=== PATIENT | female | born 1935 | race Caucasian/White ===

== ENCOUNTER → 2017-08-22 08:52 | Outpatient (CLI) | payer MEDICARE, OTHER, SELFPAY ==
--- NOTE | 2017-08-22 | DI.CT.S_ITS ---
PROCEDURE: CT UE LT WO CON INDICATIONS: LEFT WRIST PAIN TECHNIQUE: Noncontrast 1 mm axial sections acquired through the carpal bones, with coronal and sagittal reformats. COMPARISON: [facility], CR, XR WRIST LT 2V, 08/12/2017, 16:16. [facility], CR, XR WRIST LT MIN 3V, 08/12/2017, 16:59. FINDINGS: Image quality: Excellent. Bones: There is a comminuted fracture of the distal radius redemonstrated predominantly involving the dorsal aspect. There is extension to the radiocarpal and distal radioulnar joints. There is associated mild dorsal displacement and angulation of the carpus. Slight dorsal subluxation of the distal radioulnar joint is also noted. No definite fracture of the ulna or other visualized osseous structures. Soft tissues: There is periarticular soft tissue edema. The visualized flexor and extensor tendons appear grossly intact. IMPRESSION: 1. Comminuted intra-articular fracture the distal radius involving the radiocarpal joint with associated mild dorsal displacement and angulation of the carpus. 2. Extension to the distal radioulnar joint also noted with slight dorsal subluxation. Dictated by: Brendon Mendieta M.D. on 08/22/2017 at 10:35 Approved by: Brendon Mendieta M.D. on 08/22/2017 at 10:50
== END ==
PROVIDERS: PCP Family Medicine; Visit Provider Orthopaedic Surgery Foot and Ankle Surgery
DX: S52.572A Other intraarticular fracture of lower end of left radius, initial encounter for closed fracture (principal)
CPT/HCPCS: 73200

== ENCOUNTER → 2019-03-10 11:54 | Outpatient (CLI) | payer MEDICARE, OTHER, SELFPAY ==
--- NOTE | 2019-03-10 | DI.RAD.S_ITS ---
PROCEDURE: XR KNEE RT 3V INDICATIONS: RT KNEE PAIN TECHNIQUE: 3 views of the knee were acquired. COMPARISON: None. FINDINGS: Bones: No fractures or dislocations. No suspicious bony lesions. Mild tricompartmental degenerative changes of the right knee as evidenced by osteophyte formation and periarticular sclerosis. Soft tissues: There is a moderate size right knee joint effusion. There is superior patellar enthesopathy. There is soft tissue swelling of the anterior right knee superior to the patella. IMPRESSION: 1. Moderate-sized right knee joint effusion with soft tissue swelling of the anterior right knee superior to the patella. 2. Mild tricompartmental degenerative changes of the right knee. 3. Mild superior right patellar enthesopathy. Dictated by: Dominic Saxena M.D. on 03/10/2019 at 15:57 Approved by: Dominic Saxena M.D. on 03/10/2019 at 16:00
== END ==
PROVIDERS: PCP Family Medicine; Visit Provider Family Medicine
DX: M25.561 Pain in right knee (principal); M25.461 Effusion, right knee; M76.51 Patellar tendinitis, right knee
CPT/HCPCS: 73562

== ENCOUNTER → 2019-04-12 09:09 | Outpatient (CLI) | payer MEDICARE, OTHER, SELFPAY ==
--- NOTE | 2019-04-12 09:12 | DI.MRI.S_ITS ---
PROCEDURE: MR THORACIC SPINE WO CON INDICATIONS: Thoracic radiculopathy TECHNIQUE: Noncontrast sagittal T1 spine echo and T2 fast spin echo, sagittal STIR, axial T1 and T2 fast spin echo through the thoracic spine. COMPARISON: None. FINDINGS: Image quality: Excellent. Alignment and Curvature: There is normal bony alignment. Bone Marrow: Marrow is of normal overall signal. No acute vertebral body compression fractures. Mild anterior vertebral body height loss at multiple contiguous rest of vertebral bodies results in increase in the thoracic kyphosis. There are are prominent hemangiomas involving T5 and T6. Spinal Cord: Visualized spinal cord is normal in size and signal. Paraspinous Soft Tissues: No paravertebral masses. Miscellaneous: There is a shallow disc extrusion emanating from the T7-T8 disc space, extending posterior to the T8 vertebral body, measuring approximately 1.4 x 0.5 x 0.3 cm which indents on the ventral aspect of the thoracic cord, without canal stenosis. No other disc protrusions are noted. No canal stenosis or foraminal stenosis. IMPRESSION: 1. A shallow disc extrusion at T7-T8 indents on the ventral aspect of the cord without resulting in canal stenosis. 2. No other disc protrusions. No canal stenosis or foraminal stenosis. Dictated by: Fredrick Albrecht M.D. on 04/12/2019 at 12:57 Approved by: Fredrick Albrecht M.D. on 04/12/2019 at 13:01
== END ==
PROVIDERS: Family Provider Family Medicine; PCP Family Medicine; Visit Provider Physical Medicine & Rehabilitation
DX: M47.814 Spondylosis without myelopathy or radiculopathy, thoracic region (principal); M51.24 Other intervertebral disc displacement, thoracic region
CPT/HCPCS: 72146

== ENCOUNTER 2019-04-27 08:32 | Outpatient (CLI) | payer MEDICARE, OTHER, SELFPAY ==
[2019-04-27] VITALS (10 sets, daily range): BP systolic 108–189; BP diastolic 56–77; PULSE 71–80; RESP 16; TEMP 36.2; O2SAT 98–100
--- NOTE | 2019-04-27 08:33 | DI.RAD.S_ITS ---
PROCEDURE: PAIN C/T INTERLAMINAR INJECT INDICATIONS: SPONDYLOSIS FINDINGS: Fluoroscopic spot filming was performed to verify placement of spinal needles at the T7-T8 level(s), as labeled on the films. Appropriate location(s) of the needle tip(s) was confirmed by injection of iodinated contrast. Dictated by: Ramesh Correa M.D. on 04/27/2019 at 11:34 Approved by: Ramesh Correa M.D. on 04/27/2019 at 11:34
[2019-04-27] MEDS: MIDAZOLAM 5 MG/5 ML VIAL IV (10:28)
[2019-04-27] MEDS: IOPAMIDOL 15 ML VIAL 3 ML INJ (10:44)
[2019-04-27] MEDS: BUPIVACAINE 0.25% (PF) VIAL 2 ML INJ (10:44)
[2019-04-27] MEDS: DEXAMETHASONE 10 MG/ML VIAL 20 MG INJ (10:45)
--- NOTE | 2019-04-27 10:48 | PC.NURSE ---
ASSISTING PT OFF TABLE AND TRANSPORTING TO POST PROC AREA IN STABLE CONDITION. PASSING RN CARE OF PT OFF TO CECI Beckett RN.
--- NOTE | 2019-04-27 10:58 | P.PCN_ITS ---
Procedures Date/Time Date of procedure: 04/27/19 Time of procedure: 10:58 General Procedure description: Preop diagnosis: Thoracic stenosis with HNP Postprocedure diagnosis: Thoracic stenosis with HNP Physician: Dima Drummond D.O. Indications: Deana is referred by Dr. Nino for treatment of thoracic DDD/DJD with radiculopathy Description of procedure: Fluoroscopic guided, contrast controlled T7/8 translaminar epidural steroid inje ction with conscious sedation. Following review of allergy review potential side effects and complications, including, but not necessarily limited to, infection, allergic reaction, local tissue breakdown, temporary as well as permanent nerve injury, stroke, paralysis and possible , the patient indicated that they understood and agreed to proceed. An informed consent document was signed by the patient, witnessed by the nurse, and placed in the patient's chart. Additionally other treatment options including modalities, medications and physical therapy were reviewed with the patient. After review of previous anaesthesic history and IV conscious sedation the patient was deemed safe to proceed with todays procedure with IV conscious sedation as ASA class II designation. Safety time-out was performed to confirm patient ID, procedure to be performed and site of procedure. IV sedation was accomplished with a combination of 3mg of Versed administered by the RN after DO order, titrated to patient comfort during the course of the procedure while the patient remained responsive to all verbal commands In the prone position, following sterile prep and drape of the thoracic region the T7/8 translaminar space was identified fluoroscopically. The skin was anesthetized via 25 gauge 1.5 needle with 1% lidocaine solution. At this point a 25 gauge epidural needle was atraumatically introduced and advanced under fluoroscopic guidance into the region of the T7/8 translaminar space depth was confirmed on lateral view. Radiographic data, including multiple fluoroscopic views of the thoracic spine, reveals spinal needle at the T7/8 translaminar space. Lateral views then showed the placement of the needle in the epidural space. Subsequent view show contrast material flowing superiorly and inferiorly in the epidural space. No vascular or intrathecal uptake is observed. At this point using loss of resistance technique with saline and the epidural space was entered. This was confirmed followed negative aspiration and injection of approximately 1.5 cc of Isovue 200 showed excellent epidural flow without vascular or intrathecal uptake. At this point, 1 cc of 1% lidocaine so lution was admitted as a test dose and the patient was observed for an appropriate period of time without signs or symptoms of complications, including abdominal pain, shortness of breath, bilateral upper and lower extremity weakness, nausea and vomiting, prior to steroid injection. Subsequently, 2cc or 20mg of dexamethasone was then injected without incident. The patient tolerated the procedure well without signs of complications and subsequently was transferred to the recovery room for further monitoring. The patient was then transferred to the recovery area with their observed for an appropriate time after the injection. Patient reported a VAS score of 7 prior to the procedure and postprocedure VAS of 2. Total fluoroscopy time: 16 sec Total conscious sedation time: 24 min Dima Drummond D.O. Complications: none
== END 2019-04-27 11:25 | disposition home or self-care (01) ==
LOC: RAD 08:33
PROVIDERS: Family Provider Family Medicine; PCP Family Medicine; Visit Provider Physical Medicine & Rehabilitation
DX: M48.04 Spinal stenosis, thoracic region (principal); M51.14 Intervertebral disc disorders with radiculopathy, thoracic region; M47.24 Other spondylosis with radiculopathy, thoracic region
CPT/HCPCS: 62321; J1100; J2250

== ENCOUNTER → 2020-04-20 10:41 | Outpatient (CLI) | payer MEDICARE, OTHER, SELFPAY ==
--- NOTE | 2020-04-20 10:44 | DI.RAD.S_ITS ---
PROCEDURE: XR THORACIC SPINE 3V INDICATIONS: upper back pain TECHNIQUE: 3 views of the thoracic spine were acquired. COMPARISON: None. FINDINGS: Bones: No fractures or dislocations. No suspicious bony lesions. 12 pairs of ribs are noted, and appear intact where visualized. Multilevel disc space narrowing as well as bridging anterior osteophytes are present within the thoracic spine Soft tissues: No paravertebral stripe thickening. Heart is enlarged. IMPRESSION: Multilevel degenerative changes within the thoracic spine. Dictated by: Carmina Mcmillan M.D. on 04/20/2020 at 13:02 Approved by: Carmina Mcmillan M.D. on 04/20/2020 at 13:24
== END ==
PROVIDERS: PCP Family Medicine; Referring Provider Physical Medicine & Rehabilitation; Visit Provider Physical Medicine & Rehabilitation
DX: M54.6 Pain in thoracic spine (principal); M47.814 Spondylosis without myelopathy or radiculopathy, thoracic region
CPT/HCPCS: 72072

== ENCOUNTER → 2020-07-12 07:40 | Outpatient (CLI) | payer MEDICARE, OTHER, SELFPAY ==
--- NOTE | 2020-07-12 | DI.ECHO.S_ITS ---
[facility]---------+ [facility] +---------+ : : [address] : : : : [id number] : : : : Phone: [phone] Echocardiogram Report + + :Name: LOBO HU Study Date: 07/12/2020 Height: 66 in : :[facility] ReadingLocation: Weight: 165 lb : : Gender: Female BSA: 1.8 m2 : :: 1935 Age: 84 yrs BP: 156/83 mmHg: :Reason For Study: MURMUR : :Ordering Physician: IAN, : :DAWSON Performed By: Ronda Garcias : :Referring: DAWSON SOSA : + + Interpretation Summary 1) Normal left ventricular thickness, size, wall motion, and systolic function (EF 60-65%). 2) Normal right ventricular size and function. 3) Aortic sclerosis present but no stenosis or regurgitation are present. 4) Hypertension present during the study (BP 156/83mmHg). 5) No prior Echo available for comparison. Procedure: A two-dimensional transthoracic echocardiogram with color flow and Doppler was performed. The study quality was technically adequate. There is no prior echocardiogram noted for this patient. The patient was in sinus bradycardia with heart rates between 57-64 bpm during the exam. Left Ventricle: The left ventricle is normal in size. Left ventricular wall thickness is at the upper limits of normal. The ejection fraction is estimated to be 60-65%. Left ventricular systolic function appears normal without focal wall motion abnormalities. Diastolic parameters suggest a pseudonormalization pattern, consistent with probable elevated filling pressures. Right Ventricle: The right ventricle is normal in size and function. Atria: The left atrium is severely dilated. Right atrial size is normal. There is no Doppler evidence for an interatrial shunt. Mitral Valve: The mitral valve is normal in structure and function. There is mild mitral regurgitation. Aortic Valve: The aortic valve is trileaflet. The aortic valve is slightly calcified. The aortic valve opens well. There is no aortic valve stenosis. No aortic regurgitation is present. Tricuspid Valve: The tricuspid valve is normal in structure and function. There is trace tricuspid regurgitation. The right ventricular systolic pressure is estimated to be at least 29 mmHg based on an estimated right atrial pressure of 3 mm Hg. Pulmonic Valve: The pulmonic valve leaflets are thin and pliable; valve motion is normal. There is trace pulmonic regurgitation. Great Vessels: The aortic root is normal size. The ascending aorta is at the upper limits of normal in size. The IVC is of normal diameter and collapses greater than 50% with a sniff. This suggests a low right atrial pressure of 3 mm Hg. Pericardium/ Pleura There is no pericardial effusion. There is no pleural effusion. MMode/2D Measurements & Calculations LVIDd: 4.4 cm LVOT diam: 2.0 cm LVIDs: 2.7 cm Ao root diam: 2.9 cm FS: 38.3 % asc Aorta Diam: 3.7 cm EPSS: 0.14 cm Ao Arch Diam (Prox Trans): 2.3 cm IVSd: 0.88 cm LVPWd: 1.1 cm LV bunch. diameter/BSA (cm/m^2): 2.4 LV sys. diameter/BSA (cm/m^2): 1.5 LA A2 area: 24.6 cm2 RA long axis: 5.0 cm LA A4 area: 25.3 cm2 RA area: 18.8 cm2 LA length (vol): 5.6 cm RA vol: 59.6 ml LA vol: 93.6 ml RA : 32.4 ml/m2 LA vol index: 50.8 ml/m2 IVC diam: 1.3 cm RVD1 (basal): 3.1 cm TAPSE: 2.0 cm Doppler Measurements & Calculations Ao V2 max: 166.6 cm/sec LVOT Max Christophe: 108.2 cm/sec Ao V2 mean: 108.7 cm/sec LV V1 max P.7 mmHg Ao max P.1 mmHg LV V1 VTI: 24.5 cm Ao mean P.4 mmHg SADIE(I,D): 2.0 cm2 Ao V2 VTI: 36.3 cm SADIE(V,D): 1.9 cm2 sev ratio: 0.67 SADIE indexed to BSA (cm^2/m^2): 1.1 MV E max christophe: 100.5 cm/sec TR max christophe: 265.3 cm/sec Med Peak E' Christophe: 6.7 cm/sec TR max P.5 mmHg E/E' med: 15.0 PA V2 max: 97.7 cm/sec Lat Peak E' Christophe: 7.2 cm/sec PA V2 mean: 75.6 cm/sec E/E' lat: 14.0 PA mean P.5 mmHg E/e' average: 14.5 PA pr(Accel): 45.6 mmHg MV dec time: 0.16 sec SV(LVOT): 73.3 ml Reading Physician:11:21 AM
== END ==
PROVIDERS: PCP Family Medicine; Referring Provider Family Medicine; Visit Provider Family Medicine
DX: R01.1 Cardiac murmur, unspecified (principal)
CPT/HCPCS: 93306

== ENCOUNTER → 2020-07-27 09:27 | Outpatient (CLI) | payer MEDICARE, OTHER, SELFPAY | PROVIDERS: PCP Family Medicine; Referring Provider Family Medicine; Visit Provider Family Medicine | DX: M85.852 Other specified disorders of bone density and structure, left thigh (principal); Z78.0 Asymptomatic menopausal state; Z87.891 Personal history of nicotine dependence | CPT/HCPCS: 77080 ==

== ENCOUNTER 2020-11-06 08:48 | Observation (INO) | payer MEDICARE, OTHER, SELFPAY ==
[2020-11-06] VITALS (16 sets, daily range): BP systolic 141–220; BP diastolic 69–93; PULSE 55–72; RESP 15–35; TEMP 36.2–36.8; O2SAT 96–100; BMI 25.8
--- NOTE | 2020-11-06 09:14 | DI.RAD.S_ITS ---
PROCEDURE: XR CHEST 1V INDICATIONS: Chest pain TECHNIQUE: One view of the chest was acquired. COMPARISON: None. FINDINGS: Surgical changes and devices: None. Lungs and pleura: Lungs are clear. No pleural effusions or pneumothorax. Mediastinum: Mediastinal contours appear normal. Heart size is normal. Bones and chest wall: No suspicious bony lesions. Overlying soft tissues appear unremarkable. IMPRESSION: No acute cardiopulmonary process demonstrated radiographically. Dictated by: Kevin Tang M.D. on 11/06/2020 at 9:35 Approved by: Kevin Tang M.D. on 11/06/2020 at 9:36
[2020-11-06 09:29] LABS: Magnesium 2.3 mg/dL (1.6-2.3)
[2020-11-06 09:32] LABS: Alanine Aminotransferase 18 IU/L (<35); Albumin 4.9 g/dL (3.5-5.0); Albumin Globulin Ratio 1.4 (1.0-2.8); Alkaline Phosphatase 56 U/L (38-126); Aspartate Aminotransferase 29 IU/L (14-36); BUN Creatinine Ratio 24.6 (6-22); Bilirubin Total 0.9 mg/dL (0.2-1.3); Blood Urea Nitrogen 17 mg/dL (7-17); Calcium 10.4 mg/dL (8.4-10.2); Carbon Dioxide 26 mmol/L (22-32); Chloride 109 mmol/L (98-107); Creatine Kinase 89 U/L (30-135); Estimated Glomerular Filt Rate > 60.0 mL/min (>60); Globulin 3.4 g/dL (1.7-4.1); Glucose 118 mg/dL (80-110); HEMOLYSIS < 15 (0-50); Lipase 76 U/L (23-300); Sodium 142 mmol/L (137-145); Total Protein 8.3 g/dL (6.3-8.2)
[2020-11-06 09:34] LABS: Add Manual Diff / Slide Review NO; Basophils Absolute Auto 100 /uL (0-100); Basophils Percent Auto 1.1 % (0-2); Eosinophils Absolute Auto 100 /uL (0-450); Eosinophils Percent Auto 1.3 % (2-4); Hematocrit 45.6 % (36-46); Hemoglobin 15.6 g/dL (12.0-16.0); Lymphocytes Absolute Auto 2500 /uL (1100-4500); Lymphocytes Percent Auto 28.3 % (25-40); Mean Corpuscular HGB Conc 34.3 % (30-36); Mean Corpuscular Hemoglobin 31.6 PG (26-34); Mean Corpuscular Volume 92.2 fL (80-100); Monocytes Absolute Auto 700 /uL (0-900); Monocytes Percent Auto 8.1 % (3-14); Neutrophils Absolute Auto 5400 /uL (1500-7000); Neutrophils Percent Auto 61.2 % (50-75); Platelet Count 364 X10^3/uL (150-400); Red Blood Cell Count 4.95 X10^6/uL (4.0-5.2); Red Cell Distribution Width 13.3 % (11.6-14.8); White Blood Cell Count 8.8 X10^3/uL (4.5-11.0)
[2020-11-06 09:38] LABS: NT-proBNP (BNP-Adult 18+) 346 pg/mL (<450)
[2020-11-06 09:42] LABS: Troponin I < 0.012 ng/mL (0.01-0.034)
--- NOTE | 2020-11-06 09:42 | DI.CT.S_ITS ---
PROCEDURE: CT ANGIO HEAD AND NECK INDICATIONS: dizziness, left leaning, prior episodes in past. TECHNIQUE: Noncontrast images were performed earlier in the day and not repeated. After the administration of intravenous contrast, 1 mm thick sections acquired from the aortic arch through the [place] of [place]. Post-contrast 4.5 mm thick sections then re-acquired from the foramen magnum to the vertex. 3-dimensional jswntyn-dzampwgto-vniojdjdcq (MIP) and/or volume rendering reformats were acquired of the central intracranial vasculature and neck separately. COMPARISON: [facility], CT, CT HEAD/BRAIN WO CON, 11/06/2020, 9:42. FINDINGS: Image quality: Excellent. BRAIN: CSF spaces: Ventricles are normal in size and shape. Basal cisterns are patent. No extra-axial fluid collections. Brain: No midline shift. No intracranial bleeds or masses. Cedillo-white matter interface appears intact. Skull and face: Calvarium and facial bones appear intact, without suspicious lesions. Orbits appear normal. Sinuses: Sinuses and mastoids are clear. HEAD CT ANGIOGRAPHY: Anterior circulation: Intracranial internal carotid arteries are normal in size and flow. The flow within the paired anterior cerebral arteries is normal and symmetric. The flow within the middle cerebral arteries is normal and symmetric. The anterior communicating artery is not well seen. No aneurysms are seen. Posterior circulation: Note is made of bilateral type origins of the posterior cerebral arteries, with an associated diminutive basilar artery. The flow within the posterior cerebral arteries is normal and symmetric. The distal vertebral arteries are overall small in size, yet otherwise unremarkable. The distal right vertebral artery largely terminates in the right posterior inferior cerebral artery. No aneurysms are seen. 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 The origins of the common carotid arteries appear patent. The common carotid arteries demonstrate normal caliber and courses. The bifurcation regions demonstrate atherosclerotic calcification and irregularity. No hemodynamically significant stenosis can be seen. The distal internal carotid arteries are tortuous, yet demonstrate normal caliber. Posterior circulation: There is focal calcification seen at the origin of the left vertebral artery, with approximately 50% narrowing.. The more superior extracranial portions of both vertebral arteries also demonstrate normal courses and calibers. They join to form a normal appearing basilar artery. Soft tissues: Visualized neck soft tissues demonstrate no suspicious abnormalities. Bones: No suspicious bony lesions. Visualized cervical spine appears normally aligned. Age-appropriate bony degenerative changes are seen. IMPRESSION: No acute intracranial process is seen. No significant intracranial arterial abnormality is seen. Within the arteries of the neck, no hemodynamically significant stenosis can be seen. Incidental note is made of bilateral type origins of the posterior cerebral arteries, with an associated diminutive basilar artery. 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 Any quantitative measurements of stenosis were performed using NASCET criteria. Dictated by: Avery Parks M.D. on 11/06/2020 at 9:16 Approved by: Avery Parks M.D. on 11/06/2020 at 9:22
--- NOTE | 2020-11-06 09:45 | DI.CT.S_ITS ---
PROCEDURE: CT HEAD/BRAIN WO CON INDICATIONS: elevated BP, dizzy TECHNIQUE: Noncontrast 4.5 mm thick angled axial sections acquired from the foramen magnum to the vertex, with coronal and sagittal reformats. For radiation dose reduction, the following was used: automated exposure control, adjustment of mA and/or kV according to patient size. COMPARISON: None. FINDINGS: Image quality: Excellent. CSF spaces: Basal cisterns are patent. No extra-axial fluid collections. Ventricles are normal in size and shape. Brain: No midline shift. No intracranial masses or hemorrhage. [place]-white matter interface is normal. Skull and face: Calvarium and visualized facial bones are intact, without suspicious lesions. Sinuses: Visualized sinuses and mastoids are clear. IMPRESSION: No acute intracranial abnormality. Dictated by: Kevin Tang M.D. on 11/06/2020 at 10:00 Approved by: Kevin Tang M.D. on 11/06/2020 at 10:01
--- NOTE | 2020-11-06 09:54 | ED_ITS ---
HPI - General Adult General Chief complaint: Hypertension Stated complaint: dizzy, high bp Time Seen by Provider: 11/06/20 09:32 Source: patient Mode of arrival: Ambulatory Limitations: no limitations History of Present Illness HPI narrative: This is an 84-year-old female comes in with complaint of dizziness. Patient states this morning she got up about 5:00 a.m. She did not quite feel herself and when she walked out at 5:30 a.m. to bend over to rock picker her newspaper she felt quite dizzy. She states she feels like she was for leaning to her left side when she was walking with her pulling her to the left side. Patient states she had a restless night overnight. She denies any vision changes, no numbness, tingling or weakness of her extremities. No chest pain or shortness of breath. She denies any headache. She denies nausea or vomiting current but had some mild nausea earlier. No urinary symptoms. No issues with bowel movements. She had 1 prior episode about 3 weeks ago that lasted about 3 hours. Today she checked her blood pressure in she had a systolic of 196. She also notes she did fall and hit her head about 3 weeks ago as well. She is not anticoagulated, she takes a statin, lisinopril and occasionally gabapentin. Prior surgeries include wrist fracture repair. No allergies. Her primary care is Dr. Anders. Related Data Home Medications Medication Instructions Recorded Confirmed lisinopril 40 mg tablet 40 mg PO QDAY 08/12/17 11/06/20 simvastatin 20 mg tablet 20 mg PO QDAY 08/12/17 11/06/20 gabapentin 300 mg capsule 300 mg PO DAILY PRN 04/28/20 11/06/20 Previous Rx's Medication Instructions Recorded tramadol 50 mg tablet 50 mg PO BID PRN #30 tab MDD 100mg 04/28/20 Allergies Allergy/AdvReac Type Severity Reaction Status Date / Time No Known Drug Allergies Allergy Verified 11/06/20 10:48 Review of Systems Review of Systems ROS Unobtainable: All systems reviewed & are unremarkable except as noted in HPI and below 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 HEENT: Atraumatic, pupils are equal round reactive to light, extraocular movements are intact, nares are clear, TMs are clear with no fluid, there is no conjunctival pallor. Throat is clear without any exudates, erythema, tonsillar enlargement or uvular deviation, no facial droop. No dysarthria. HEART: Regular rate and rhythm without murmur, clicks, rubs. Pulses are equal in upper and lower extremities LUNGS:Lungs clear to auscultation, no wheezes, rales, crackles, chest moves symmetrically ABD:bowel sounds normal, soft, non-tender, no guarding, rebound, rigidity, no masses noted, no hepatosplenomegaly :No CVA tenderness MSCL: Non-tender, no muscle atrophy, muscles strength 5/5 upper and lower extremities, full range of motion, normal gait NEURO:CN 2-12 intact, sensation normal, reflexes 2/4 upper and lower extremities. finger nose finger test normal, heel otero test normal SKIN: Rash, erythema other skin changes noted. Initial Vital Signs Initial Vital Signs: Vital Signs Pulse Rate 72 11/06/20 09:14 Respiratory Rate 35 H 11/06/20 09:14 Pulse Oximetry 99 11/06/20 09:14 Scores NIH Stroke Scale Level of Conciousness: Alert, keenly responsive Ask month/age: Answers both questions correctly. Open/close eyes, close hand: Performs both tasks correctly Best gaze horizontal: Normal Visual lopez: No visual loss Facial palsy: Normal symetrical movement Left arm drift: No drift for full 10 sec Right arm drift: No drift for full 10 sec Left leg drift: No drift for full 5 sec Right leg drift: No drift for full 5 sec Limb ataxia: Absent Sensory on face/arms/legs: Normal, no sensory loss Best language: No aphasia, normal Dysarthria: Normal Extinction or inattention: No abnormality Total NIH Stroke scale score: 0 Course Orders Ordered: ED Orders 11/06/20 10:51 MR stroke Stat Acetaminophen (Acetaminophen 325 Mg Tablet) 650 mg PO Q6HR PRN PRN Reason: Fever Aspirin (Aspirin Ec 325 Mg Tablet) 325 mg PO DAILY [facility] Atorvastatin Calcium (Atorvastatin 20 Mg Tablet) 10 mg PO BEDTIME [facility] Enoxaparin Sodium (Enoxaparin 40 Mg/0.4 Ml Syringe) 40 mg SUBCUT DAILY [facility] Gabapentin (Gabapentin 300 Mg Capsule) 300 mg PO DAILY PRN PRN Reason: Pain (Scale Score 1-3) Lisinopril (Lisinopril 20 Mg Tablet) 40 mg PO DAILY [facility] Last Admin: 11/06/20 14:13 Dose: Not Given Documented by: LAUREN Magnesium Hydroxide (Magnesium Hydroxide 30 Ml Udc) 30 ml PO DAILY PRN PRN Reason: Constipation Naloxone HCl (Naloxone 0.4 Mg/Ml Vial) 0.2 mg IV Q2MIN PRN PRN Reason: Opiate Reversal Tramadol HCl (Tramadol 50 Mg Tablet) 50 mg PO BID PRN PRN Reason: pain Discontinued Medications Amlodipine Besylate (Amlodipine 5 Mg Tablet) 5 mg PO NOW ONE Stop: 11/06/20 13:50 Last Admin: 11/06/20 14:39 Dose: 5 mg Documented by: LAUREN Aspirin (Aspirin 81 Mg Chew Tab) 324 mg PO NOW ONE Stop: 11/06/20 10:49 Last Admin: 11/06/20 10:59 Dose: 324 mg Documented by: SOSA Consultations Consultation #1: Dr. Anders, accepts for observation. Vital Signs Vital signs: Vital Signs - 8 hr 11/06/20 09:14 11/06/20 09:20 11/06/20 09:30 Temperature 98.2 F Pulse Rate 72 64 59 L Respiratory Rate 35 H 15 23 Blood Pressure 220/93 H Pulse Oximetry 99 98 99 11/06/20 10:21 11/06/20 10:22 11/06/20 10:30 Temperature Pulse Rate 61 61 58 L Respiratory Rate 27 H 24 30 H Blood Pressure 147/80 H Pulse Oximetry 96 99 11/06/20 10:31 Temperature Pulse Rate 59 L Respiratory Rate 24 Blood Pressure 185/79 H Pulse Oximetry 99 Medical Decision Making Lab Data Result diagrams: 11/06/20 09:10 11/06/20 09:10 Labs: Lab Results 11/06/20 11/06/20 11/06/20 Range/Units 09:10 09:10 09:10 WBC 8.8 (4.5-11.0) X10^3/uL RBC 4.95 (4.0-5.2) X10^6/uL Hgb 15.6 (12.0-16.0) g/dL Hct 45.6 (36-46) % MCV 92.2 (80-100) fL MCH 31.6 (26-34) PG MCHC 34.3 (30-36) % RDW 13.3 (11.6-14.8) % Plt Count 364 (150-400) X10^3/uL Neut % (Auto) 61.2 (50-75) % Lymph % (Auto) 28.3 (25-40) % [place] % (Auto) 8.1 (3-14) % Eos % (Auto) 1.3 L (2-4) % Baso % (Auto) 1.1 (0-2) % Neut # (Auto) 5400 (5638-5262) /uL Lymph # (Auto) 2500 (2550-8623) /uL [place] # (Auto) 700 (0-900) /uL Eos # (Auto) 100 (0-450) /uL Baso # (Auto) 100 (0-100) /uL Sodium 142 (137-145) mmol/L Potassium 4.0 (3.4-5.1) mmol/L Chloride 109 H (98-107) mmol/L Carbon Dioxide 26 (22-32) mmol/L BUN 17 (7-17) mg/dL Creatinine 0.69 (0.52-1.04) mg/dL Estimated GFR > 60.0 (>60) mL/min BUN/Creatinine Ratio 24.6 H (6-22) Glucose 118 H (80-110) mg/dL Calcium 10.4 H (8.4-10.2) mg/dL Magnesium 2.3 (1.6-2.3) mg/dL Total Bilirubin 0.9 (0.2-1.3) mg/dL AST 29 (14-36) IU/L ALT 18 (<35) IU/L Alkaline Phosphatase 56 (38-126) U/L Total Creatine Kinase 89 (30-135) U/L CK-MB (CK-2) TNP CK-MB (CK-2) Rel Index TNP Troponin I < 0.012 (0.01-0.034) ng/mL NT-Pro-B Natriuret Pep 346 (<450) pg/mL Total Protein 8.3 H (6.3-8.2) g/dL Albumin 4.9 (3.5-5.0) g/dL Globulin 3.4 (1.7-4.1) g/dL Albumin/Globulin Ratio 1.4 (1.0-2.8) Lipase 76 (23-300) U/L Imaging Data CT scan - head: Radiologist's Impression: [address] [id number] Scan ReportSigned Patient: Fernando Bernal#: [id number]: 5Acct:[id number]/Sex: 84 / FDate of Service: 11/06/20Loc: EDAccession Number: [id number] Procedure: CT head/brain wo con Ordering Provider: Joanie Riddle D.O. PROCEDURE: CT HEAD/BRAIN WO CON INDICATIONS: elevated BP, dizzy TECHNIQUE: Noncontrast 4.5 mm thick angled axial sections acquired from the foramen magnum to the vertex, with coronal and sagittal reformats. For radiation dose reduction, the following was used: automated exposure control, adjustment of mA and/or kV according to patient size. COMPARISON: None. FINDINGS: Image quality: Excellent. CSF spaces: Basal cisterns are patent. No extra-axial fluid collections. Ventricles are normal in size and shape. Brain: No midline shift. No intracranial masses or hemorrhage. [place]-white matter interface is normal. Skull and face: Calvarium and visualized facial bones are intact, without suspicious lesions. Sinuses: Visualized sinuses and mastoids are clear. IMPRESSION: No acute intracranial abnormality. Dictated by: Kevin Tang M.D. on 11/06/2020 at 10:00 Approved by: Kevin Tang M.D. on 11/06/2020 at 10:01 CTA - brain/neck: Radiologist's Impression: Deana Bernal 84 F [address] [id number] Scan ReportSigned Patient: Fernando Bernal#: [id number]: 5Acct:[id number]/Sex: 84 / FDate of Service: 11/06/20Loc: EDAccession Number: [id number] Procedure: CT angio head and neck Ordering Provider: Joanie Riddle D.O. PROCEDURE: CT ANGIO HEAD AND NECK INDICATIONS: dizziness, left leaning, prior episodes in past. TECHNIQUE: Noncontrast images were performed earlier in the day and not repeated. After the administration of intravenous contrast, 1 mm thick sections acquired from the ao rtic arch through the [place] of [place]. Post-contrast 4.5 mm thick sections then re- acquired from the foramen magnum to the vertex. 3-dimensional njkusfa-psnnkqifs-sunjalvxhg (MIP) and/or volume rendering reformats were acquired of the central intracranial vasculature and neck separately. COMPARISON: [facility], CT, CT HEAD/BRAIN WO CON, 11/06/2020, 9:42. FINDINGS: Image quality: Excellent. BRAIN: CSF spaces: Ventricles are normal in size and shape. Basal cisterns are patent. No extra-axial fluid collections. Brain: No midline shift. No intracranial bleeds or masses. Cedillo-white matter interface appears intact. Skull and face: Calvarium and facial bones appear intact, without suspicious lesions. Orbits appear normal. Sinuses: Sinuses and mastoids are clear. HEAD CT ANGIOGRAPHY: Anterior circulation: Intracranial internal carotid arteries are normal in size and flow. The flow within the paired anterior cerebral arteries is normal and symmetric. The flow within the middle cerebral arteries is normal and symmetric. The anterior communicating artery is not well seen. No aneurysms are seen. Posterior circulation: Note is made of bilateral type origins of the posterior cerebral arteries, with an associated diminutive basilar artery. The flow within the posterior cerebral arteries is normal and symmetric. The distal vertebral dewey max are overall small in size, yet otherwise unremarkable. The distal right vertebral artery largely terminates in the right posterior inferior cerebral artery. No aneurysms are seen. 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 The origins of the common carotid arteries appear patent. The common carotid arteries demonstrate normal caliber and courses. The bifurcation regions demonstrate atherosclerotic calcification and irregularity. No hemodynamically significant stenosis can be seen. The distal internal carotid arteries are tortuous, yet demonstrate normal caliber. Posterior circulation: There is focal calcification seen at the origin of the left vertebral artery, with approximately 50% narrowing.. The more superior extracranial portions of both vertebral arteries also demonstrate normal courses and calibers. They join to form a normal appearing basilar artery. Soft tissues: Visualized neck soft tissues demonstrate no suspicious abnormalities. Bones: No suspicious bony lesions. Visualized cervical spine appears normally aligned. Age-appropriate bony degenerative changes are seen. IMPRESSION: No acute intracranial process is seen. No significant intracranial arterial abnormality is seen. Within the arteries of the neck, no hemodynamically significant stenosis can be seen. Incidental note is made of bilateral type origins of the posterior cerebral arteries, with an associated diminutive basilar artery. 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 Any quantitative measurements of stenosis were performed using NASCET criteria. Dictated by: Avery Parks M.D. on 11/06/2020 at 9:16 Approved by: Avery Parks M.D. on 11/06/2020 at 9:22 ECG Data Interpretation: Sinus rhythm, left axis deviation. LVH with repolarization abnormality. Ventricular rate 80 6p are 190 QRS of 100 and QTC of 428. No acute ST changes appreciated. Patient does not have prior for comparison. MDM Narrative Medical decision making narrative: This is an 84-year-old female comes with complaint of dizziness and feeling like she has pulled to her left side. Patient woke up with symptoms but seems significantly worse about 5:30 a.m.. She had similar symptoms about 3 weeks ago. She is quite hypertensive at 220/93 and was 196 on her home cuff. Patient's NIH is 0 with no acute neurologic changes. CT of head angiography was ordered as well as labs. Head CT and CTA are negative. Discussed with patient possible observation for CVA. Patient's NIH is 0. Her gait is appropriate but she does find it helpful to have someone hold her arm well she ambulates. Repeat blood pressure at 02/03 was 185/79. Is a 324 mg was ordered. Spoke with patient's primary care Dr. Anders who accepts for observation for possible TIA S patient feels significantly better at this time. With 2 short episodes in the past 3 weeks I do have concern for possible TIAs. Patient is agreeable to observation. MRI stroke protocol was ordered to facilitate workup and Dr. Anders will see patient. Discharge Plan Departure Patient Disposition: Admitted as Observation Clinical Impression: TIA (transient ischemic attack) Admit Date/Time: 11/06/20 10:53 Admit Provider: Dima Anders
--- NOTE | 2020-11-06 10:51 | DI.MRI.S_ITS ---
PROCEDURE: MR STROKE Pre- and post-contrast brain MRI, non-contrast brain MR angiogram, pre- and postcontrast neck MR angiogram INDICATIONS: listing to left, dizziness TECHNIQUE: Brain: Noncontrast axial T1 spin echo, axial T2 fast spin echo, sagittal and axial FLAIR, coronal T2 fast spin echo, axial gradient echo, axial diffusion and ADC through the brain. After the administration of contrast, axial 3D VIBE of the cranial vasculature and brain. Brain MRA: Non-contrast 3-D time of flight MR angiogram, with multiple wpxtrup-skqbbnmso-fefazxgqjc (MIP) reformats performed. Neck MRA: Axial and sagittal TruFISP through the neck. Coronal dynamic MR angiogram during administration of contrast in the arterial and venous phases, with 3-dimenstional uncddah-lvocnxrab-nsrgnyaupn (MIP) reformats constructed from subtraction images. COMPARISON: [facility], CT, CT ANGIO HEAD AND NECK, 11/06/2020, 9:42. [facility], CT, CT HEAD/BRAIN WO CON, 11/06/2020, 9:42. FINDINGS: Image quality: Excellent. BRAIN: CSF spaces: Ventricles are normal in size and shape. Basal cisterns are patent. No extra-axial fluid collections. Brain: No intracranial bleeds or mass effects. Cedillo-white matter interface is normal. Diffusion weighted images show no acute ischemic insults. Brainstem appears normal. Normal intravascular flow voids are present. No abnormal intracranial enhancement. Note is made of age-appropriate brain parenchymal volume loss and chronic small vessel ischemic changes. Skull and face: Calvarial marrow signal is normal. Orbits appear normal. Note is made of bilateral lens replacements. Sinuses: Sinuses and mastoids are clear. Bilateral den bullosa are incidentally noted. BRAIN MR ANGIOGRAM: Anterior circulation: Intracranial internal carotid arteries are normal in size and enhancement. The flow within the paired anterior cerebral arteries is normal and symmetric. The flow within the middle cerebral arteries is normal and symmetric. The anterior communicating artery is not definitely seen. No stenoses, occlusions, or aneurysms. Posterior circulation: Note is made of bilateral type origins of the posterior cerebral arteries, with an associated diminutive basilar artery. The flow within the posterior cerebral arteries is normal and symmetric. The distal vertebral arteries are overall small in size. Note is made that the distal right vertebral artery largely terminates in the right posterior inferior cerebellar artery. No aneurysms are seen. NECK MR ANGIOGRAM: Carotids: There is an aberrant right subclavian artery. The origins of the common carotid arteries appear patent. The calibers and courses of both common carotid arteries are normal. The bifurcation regions are within normal limits, without a hemodynamically significant stenosis. The distal internal carotid arteries are tortuous. Posterior circulation: The origins of the vertebral arteries appear patent. More superior portions of both vertebral arteries demonstrate normal course and caliber, and join to form a normal appearing basilar artery. Miscellaneous: Subclavian arteries appear patent. Pre-contrast images through the neck show no soft tissue abnormalities. IMPRESSION: BRAIN MRI: No findings of acute or subacute infarction can be seen. Note is made of age-appropriate brain parenchymal volume loss and chronic small vessel ischemic changes. No masses or abnormal enhancement can be seen. BRAIN MR ANGIOGRAM: No significant intracranial arterial abnormality is seen. Nnvsdi-ob-Ogkibf developmental anomalies are incidentally noted. NECK MR ANGIOGRAM: Within the arteries of the neck, no hemodynamically significant stenosis can be seen. Aberrant right subclavian artery. Dictated by: Avery Parks M.D. on 11/06/2020 at 11:00 Approved by: Avery Parks M.D. on 11/06/2020 at 11:04
[2020-11-06] MEDS: ASPIRIN 81 MG CHEW TAB 324 MG PO (10:59)
--- NOTE | 2020-11-06 12:43 | PC.NURSE ---
Day shift note: Patient admitted to room 220, awake. alert, and pleasantly cooperative. Ambulated independently from gurney to bed. Clear speech, no sensory or motor deficits. NIH 0. Placed on Tele on arrival. Nursing swallow eval performed at bedside, passed. Systolic BP 195, no C/O headache, dizziness, or visual disturbance. Oriented to room, environment, and plan of care. Call light within reach.
[2020-11-06 13:25] LABS: COVID19 - ADMIT (NP swab/PCR) Negative (Negative)
--- NOTE | 2020-11-06 13:49 | DI.ECHO.S_ITS ---
[place] +---------+ [facility] +---------+ : : [address] : : : : [id number] : : : : Phone: [phone] Echocardiogram Report + + :Name: LOBO HU Study Date: 11/06/2020 Height: 66 in : :[facility] ReadingLocation: Weight: 160 lb : : Gender: Female BSA: 1.8 m2 : :: 1935 Age: 84 yrs BP: 148/76 mmHg: :Reason For Study: TIA : :Ordering Physician: IAN, : :DAWSON Performed By: Ronda Garcias : :Referring: DAWSON SOSA : + + Interpretation Summary Normal left ventricle size with ejection fraction 60-65%. Grade II diastolic dysfunction. The left atrium is severely dilated. The aortic valve is slightly calcified. Mild mitral regurgitation. The ascending aorta is mildly enlarged. Comparison is made with the echocardiogram of 07/12/20, there has been no significant change. Procedure: A two-dimensional transthoracic echocardiogram with color flow and Doppler was performed. The study quality was technically adequate. Comparison is made with the echocardiogram of 07/12/20. The patient was in sinus rhythm with heart rates between 54-60 bpm during the exam. Left Ventricle: The left ventricle is normal in size and wall thickness. The ejection fraction is estimated to be 60-65%. There are no focal wall motion abnormalities. Diastolic parameters suggest a pseudonormalization pattern, consistent with probable elevated filling pressures. Right Ventricle: The right ventricle is normal in size and function. Atria: The left atrium is severely dilated. Right atrial size is normal. There is no Doppler evidence for an interatrial shunt. Mitral Valve: The mitral valve is normal in structure and function. There is mild mitral regurgitation. Aortic Valve: The aortic valve is trileaflet. The aortic valve is slightly calcified. The aortic valve opens well. There is mild aortic valve sclerosis. There is no aortic valve stenosis. No aortic regurgitation is present. Tricuspid Valve: The tricuspid valve is normal in structure and function. The right ventricular systolic pressure is estimated to be at least 36 mmHg based on an estimated right atrial pressure of 3 mm Hg. There is trace tricuspid regurgitation. Pulmonic Valve: The pulmonic valve leaflets are thin and pliable; valve motion is normal. There is mild pulmonic regurgitation. Great Vessels: The aortic root is normal size. The ascending aorta is mildly enlarged. The IVC is of normal diameter and collapses greater than 50% with a sniff. This suggests a low right atrial pressure of 3 mm Hg. Pericardium/ Pleura There is no pericardial effusion. There is no pleural effusion. MMode/2D Measurements & Calculations LVIDd: 4.9 cm LVOT diam: 2.1 cm LVIDs: 3.1 cm Ao root diam: 3.4 cm FS: 37.1 % asc Aorta Diam: 3.8 cm IVSd: 0.89 cm LVPWd: 1.0 cm LV bunch. diameter/BSA (cm/m^2): 2.7 LV sys. diameter/BSA (cm/m^2): 1.7 LA A2 area: 30.1 cm2 RA long axis: 5.6 cm LA A4 area: 23.5 cm2 RA area: 16.7 cm2 LA length (vol): 5.8 cm RA vol: 42.2 ml LA vol: 103.5 ml RA : 23.2 ml/m2 LA vol index: 56.9 ml/m2 IVC diam: 1.3 cm RVD1 (basal): 3.3 cm TAPSE: 2.4 cm Doppler Measurements & Calculations Ao V2 max: 177.6 cm/sec LVOT Max Christophe: 123.4 cm/sec Ao V2 mean: 107.2 cm/sec LV V1 max P.1 mmHg Ao max P.6 mmHg LV V1 VTI: 31.2 cm Ao mean P.4 mmHg SADIE(I,D): 2.7 cm2 Ao V2 VTI: 37.5 cm SADIE(V,D): 2.3 cm2 sev ratio: 0.83 SADIE indexed to BSA (cm^2/m^2): 1.5 MV E max christophe: 86.3 cm/sec TR max christophe: 286.6 cm/sec MV A max christophe: 48.2 cm/sec TR max P.9 mmHg MV E/A: 1.8 PA V2 max: 101.7 cm/sec Med Peak E' Christophe: 5.7 cm/sec PA V2 mean: 72.8 cm/sec E/E' med: 15.1 PA mean P.4 mmHg Lat Peak E' Christophe: 6.7 cm/sec PA pr(Accel): 10.5 mmHg E/E' lat: 13.0 E/e' average: 14.0 MV dec time: 0.23 sec SV(LVOT): 102.9 ml Electronically signed by: Dai reyes Marina Physician:11/06/2020 09:00 PM
[2020-11-06] MEDS: AMLODIPINE 5 MG TABLET PO (14:39)
--- NOTE | 2020-11-06 15:02 | PT.IIE ---
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 Pt is an effective verbal communicator. Mobility and Gait Independent without AD. Pt walks a mile or two daily. 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 She likes to use her [email or web address] Fit for balance work. Pt states her last fall was >3 years ago from a stepladder when she broke her wrist. Activities of Daily Living and IADL's Independent with all I/ADL's including driving. Prior Functional Level (Other details) Pt has chronic low back pain. She uses a TENS unit which provides relief. Social History Household Members spouse Living Arrangements House Number of Floors (Floors) Two Floors Number of Stairs To Enter/Railing? 3 LUIS F with wide bilateral rails. Pt mostly stays on main level but does go up and down to clean upstairs level. Home Environment High Toilet,Walk in Shower Home Equipment Front Wheel Walker Employment Status Retired Additional Social History Comment Pt lives in [place] with her , [place]. M2 PT-IP Current Condition Start: 11/06/20 14:06 Freq: NEEDED Status: Active Protocol: Document 11/06/20 15:02 AW (Rec: 11/06/20 15:31 AW [id number]) Physical Therapy Current Condition Current Condition Evaluation Date 11/06/20 Treatment Diagnosis possible TIA; impaired coordination LUE/LLE Onset Date 11/06/20 M3 PT-IP Subjective Start: 11/06/20 14:06 Freq: NEEDED Status: Active Protocol: Document 11/06/20 15:02 AW (Rec: 11/06/20 15:31 AW [id number]) Subjective Physical Therapy Visit Type Type Initial Evaluation Visit Start Time 14:37 Visit Stop Time 15:02 Total Visit Minutes 25 Notes Pt's spouse was present for mobility assessment. Number of INSPECTOR WEIGHTS AND MEASURES Visits 0 Physical Therapy Visit Comments Patient Comments Pt is willing to participate with PT Patient Goals Pt hopes to return home to tend to her garden. Therapy Pain Assessment Pain When Pain Assessed During Mobility Pain Present Pain Present Denied Pain M4 PT-IP Mobility and Gait Start: 11/06/20 14:06 Freq: NEEDED Status: Active Protocol: Document 11/06/20 15:02 AW (Rec: 11/06/20 15:31 AW [id number]) PT-Bed Mobility Assessment Supine to Sit Supine to Sit Independent Scooting Scooting to Edge of Bed Independent PT-Transfer Assessment Sit to and From Stand Sit to and from Stand Independent Equipment Transfer Assistive Device None Orthotic/Prosthetic Devices or Brace: No Transfers Transfer Destination Chair Transfer Technique Stand Step Pivot Transfer Ability Level of Assist Independent Comments Mobility Comments Pt got out of bed, participated in balance assessment, and walked in the halls without need for assist. Gait Assessment Gait Gait Assistance Required: Independent Distance (Feet) 250 Assistive Devices Assistive Device None,Gait Belt Orthotic/Prosthetic Devices or Brace: No Gait Deviations General Gait Pattern Lateral Trunk Lean Comments Gait Comments Slight leftward lean noted when initiating gait but resolved without any intervention. Stair Climbing Assessment Evaluation Level of Assist On Stairs Independent Devices Stair Climbing Assistive Devices Right Railing Technique/Endurance Stair Climbing Direction Ascend and Descend Stair Climbing Technique Step Over Step Number of Steps Climbed 3 Query Text: Stair Climbing Set # Repetitions (reps) 1 PT-Balance Assessment Sitting Balance and Reactions Static Sitting Balance Ability Normal Dynamic Sitting Balance Ability Normal Standing Balance and Reactions Static Standing Balance Ability Good Balance Tests Single Limb Standing RLE >10 sec; LLE 3 sec. Romberg WNL Comments Other Balance Tests/Deviations/Treatment Pt was able to complete rapid : 360 degree turns with no assist or LOB. Regarding single leg stance, pt reports she has noticed this discrepancy before and that it is not new. Functional Assessments Functional Tests Dynamic Gait Index 23/24 (single point deducted for railing use on stairs) Other Functional Tests Performed Pt demonstrates good squat, able to pick items up from floor. M5 PT-IP Objective Assessments Start: 11/06/20 14:06 Freq: NEEDED Status: Active Protocol: Document 11/06/20 15:02 AW (Rec: 11/06/20 15:31 AW [id number]) Orientation Orientation/Cognition Level of Alertness Alert Orientation Name,Day of Week,Place, Situation Language Function Ability No Deficits Noted Safety Awareness Understands Safety Issues Memory Description No Deficits Noted Gross Range of Motion Upper Extremity ROM Assessment Within Functional Limits Lower Extremity ROM Assessment Within Functional Limits Strength Upper Extremity Strength Assessment Within Functional Limits Lower Extremity Strength Assessment Within Functional Limits Comments Strength Comments No unilateral deficit on exam. Coordination Assessment Gross Coordination Gross Coordination Impaired Assessment Finger to Nose Test Minimal Impairment Foot Tapping Test Minimal Impairment Coordination Comments Pt missed target ~1 cm with LUE on finger to nose with eyes closed. With eyes open, she continued to miss targets but was able to improve accuracy after multiple reps. On foot tap test, noted mild lag with LLE. Sensation Assessment Sensation Gross Sensation WNL Muscle Tone Muscle Tone WNL Yes Other Assessments Other Other Assessments Smooth pursuits, saccades, convergence/divergence, head impulse test all WNL. M6 PT-IP Treatment Start: 11/06/20 14:06 Freq: NEEDED Status: Active Protocol: Document 11/06/20 15:02 AW (Rec: 11/06/20 15:31 AW [id number]) Physical Therapy Treatment Education Education Provided Safety Other Treatments Other Treatment Performed Educated pt and her spouse on signs/symptoms of stroke and emphasized need for immediate treatment. Pt understood. M7 PT-IP Assessment and Plan Start: 11/06/20 14:06 Freq: NEEDED Status: Active Protocol: Document 11/06/20 15:02 AW (Rec: 11/06/20 15:31 AW [id number]) PT Summary Assessment and Plan Potential Status of Condition at Evaluation Stable Summary Impairments Coordination Assessment Summary Deana is an 84 yo woman seen for PT evaluation in the acute care setting with reports of dizziness and feeling pulled toward the left in gait - both of which had already resolved. Brain MRI and MRA are negative for acute or subacute process. Pt is independent in all regards at baseline. On evaluation, pt presents with mild coordination deficits on her left side and was noted to lean slightly leftward when initiating gait. Her lean, however, resolved without intervention and did not re- occur. Her BP was elevated - 181/76 HR 65 before activity and 189/77 HR 70 after mobility. She was asymptomatic . Occulomotor and vestibular screening was normal. Dyanmic balance was better than age- matched peers with a score of 23/24 on Dynamic Gait Index. Findings were reported to RN. PT anticipates pt will be safe to discharge home once medically cleared. She was educated with return precautions and verbalized understanding. PT will discharge orders at this time but remain available for re- consult if pt condition changes. Frequency of Treatment Frequency Of Treatment Discharge Recommendations To Nursing Amount of Assist Needed Independent Discharge Recommendations PT Discharge Recommendations Home Other Discharge Recommendations Pt understands return precautions for signs/symptoms of CVA Transportation Needs at Discharge Private Vehicle
--- NOTE | 2020-11-06 19:15 | P.HP_ITS ---
History of Present Illness History of Present Illness Date Patient Seen: 11/06/20 Time Patient Seen: 12:00 Chief complaint: dizzy, high bp Narrative: Patient is an 84-year-old female otherwise healthy with hypertension who basically states that she had a dizzy episode today. Parent lay she bent over to get her newspaper this morning when she got up and felt quite dizzy and then felt like she was constantly leaning to the left. Had diff kind of focus to get herself straightened out. She did not have any headaches no real visual symptoms no numbness no tingling no weakness. She felt as if she had no trouble breathing or shortness of breath. She did not have any fevers or chills. Has overall been doing well. She had not been checking her blood pressure but last time she was in clinic she had a normal blood pressure. She did not have any nausea or vomiting. No urinary symptoms. Normal bowel movements. She was pretty much normal by the time she got to the hospital although she still felt like there was a little something going on with her leaning left side. Patient had 1 other episode which was a dizzy episode and maybe some kind of left-sided issue about 3 weeks ago. Has never had any other abnormality that. Was very similar lasted 3 hours she did not seek help. She otherwise has had no other significant change. Patient has not had any change in his medication she has not had any other changes otherwise. Feels well. Yesterday was a normal day. She has not had any weakness she has not been tripping no fine motor issues Past medical history is significant for hypertension, hyperlipidemia, Past surgical history unremarkable except for tonsillectomy and appendectomy Family history: Father with cirrhosis 65, mother age 86 with Alzheimer's Social history retired [employer] high school education. 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, thoracic Surgical History History of appendectomy History of surgery on wrist Family & Social History Family History Mother Alzheimer disease Father Liver disease Social History: household members spouse Prior Living Arrangements House Safety & Behavioral: Feels Safe in Current Yes Environment Been Physically Hurt or No Threatened By a Person Tobacco & Substance use: Smoking Status Former smoker alcohol intake current alcohol intake frequency 0-2 drinks per day Substance Use Type does not use Meds Home Medications and Allergies Home Medications Medication Instructions Recorded Confirmed Type lisinopril 40 mg tablet 40 mg PO QDAY 08/12/17 11/06/20 History simvastatin 20 mg tablet 20 mg PO QDAY 08/12/17 11/06/20 History gabapentin 300 mg capsule 300 mg PO DAILY PRN 04/28/20 11/06/20 History tramadol 50 mg tablet 50 mg PO BID PRN #30 tab MDD 100mg 04/28/20 11/06/20 Rx Allergies Allergy/AdvReac Type Severity Reaction Status Date / Time No Known Drug Allergies Allergy Verified 11/06/20 10:48 Review of Systems Review of Systems Narrative: Please see review systems in history and physical otherwise negative Exam Vital Signs (past 8 hours): - 11/06/20 12:16 11/06/20 13:47 11/06/20 13:49 Temperature 97.9 F Pulse Rate 66 55 L 60 Respiratory Rate 16 16 Blood Pressure 195/78 H 146/78 H Pulse Oximetry 98 11/06/20 15:29 Temperature 97.3 F L Pulse Rate 68 Respiratory Rate 18 Blood Pressure 152/89 H Pulse Oximetry 98 Oxygen Delivery Method Room Air Oxygen Flow Rate 0 Narrative Exam Narrative: Alert female smiling in no acute distress. HEENT exam is unremarkable. Neck supple without adenopathy. Lungs are clear. Heart regular rate and rhythm. Abdomen is soft positive bowel sounds nontender extremities without cyanosis clubbing edema. Neurologic exam shows cranial nerves 2-12 intact motor is 5/5 reflexes 2+ and symmetric. Bqptep-[id number] and tgsa-ox-jzbx are normal. Romberg was not tested Objective Labs Result Diagrams: 11/06/20 09:10 11/06/20 09:10 Labs: Laboratory Results - last 24 hr 11/06/20 11/06/20 11/06/20 09:10 09:10 09:10 WBC 8.8 RBC 4.95 Hgb 15.6 Hct 45.6 MCV 92.2 MCH 31.6 MCHC 34.3 RDW 13.3 Plt Count 364 Neut % (Auto) 61.2 Lymph % (Auto) 28.3 Mcculloch % (Auto) 8.1 Eos % (Auto) 1.3 L Baso % (Auto) 1.1 Neut # (Auto) 5400 Lymph # (Auto) 2500 Mcculloch # (Auto) 700 Eos # (Auto) 100 Baso # (Auto) 100 Sodium 142 Potassium 4.0 Chloride 109 H Carbon Dioxide 26 BUN 17 Creatinine 0.69 Estimated GFR > 60.0 BUN/Creatinine Ratio 24.6 H Glucose 118 H Calcium 10.4 H Magnesium 2.3 Total Bilirubin 0.9 AST 29 ALT 18 Alkaline Phosphatase 56 Total Creatine Kinase 89 CK-MB (CK-2) TNP CK-MB (CK-2) Rel Index TNP Troponin I < 0.012 NT-Pro-B Natriuret Pep 346 Total Protein 8.3 H Albumin 4.9 Globulin 3.4 Albumin/Globulin Ratio 1.4 Lipase 76 SARS-CoV-2 (PCR) 11/06/20 12:00 WBC RBC Hgb Hct MCV MCH MCHC RDW Plt Count Neut % (Auto) Lymph % (Auto) Mcculloch % (Auto) Eos % (Auto) Baso % (Auto) Neut # (Auto) Lymph # (Auto) Mcculloch # (Auto) Eos # (Auto) Baso # (Auto) Sodium Potassium Chloride Carbon Dioxide BUN Creatinine Estimated GFR BUN/Creatinine Ratio Glucose Calcium Magnesium Total Bilirubin AST ALT Alkaline Phosphatase Total Creatine Kinase CK-MB (CK-2) CK-MB (CK-2) Rel Index Troponin I NT-Pro-B Natriuret Pep Total Protein Albumin Globulin Albumin/Globulin Ratio Lipase SARS-CoV-2 (PCR) Negative Assessment & Plan Assessment & Plan narrative: Dizziness. Possible TIA. Unlikely stroke and that she has completely resolved all symptoms at this time. MRI shows no abnormali ty, echo was pending. On aspirin now. If stable in morning will be discharged. Wonder if this is possibly secondary to her elevated blood pressure which has not been an issue in the past. Hypertension. Discussed options. She has been well controlled will add amlodipine and follow closely. Discussed side effects. Follow up a.m.. Hyperlipidemia. Stable. Disposition home in a.m. if stable. 45 minute spent with patient and in evaluating tests and documentation
[2020-11-06] MEDS: ATORVASTATIN 20 MG TABLET 10 MG PO (20:30)
[2020-11-07 05:15] VITALS: BP 150/76; PULSE 60; RESP 18; TEMP 36.9; O2SAT 96
[2020-11-07 05:40] LABS: BUN Creatinine Ratio 23.8 (6-22); Blood Urea Nitrogen 15 mg/dL (7-17); Calcium 10.3 mg/dL (8.4-10.2); Carbon Dioxide 29 mmol/L (22-32); Chloride 106 mmol/L (98-107); Estimated Glomerular Filt Rate > 60.0 mL/min (>60); Glucose 94 mg/dL (80-110); HEMOLYSIS < 15 (0-50); Potassium 4.4 mmol/L (3.4-5.1); Sodium 142 mmol/L (137-145)
[2020-11-07] MEDS: ASPIRIN EC 81 MG TABLET PO (08:55)
[2020-11-07] MEDS: lisinopriL 20 MG TABLET 40 MG PO (08:56)
[2020-11-07 09:00] VITALS: BP 160/84; PULSE 75; RESP 16; TEMP 35.9; O2SAT 99
--- NOTE | 2020-11-07 09:19 | OT.IPNOTE ---
Pt states feels back to normal and not wanting to do OT eval, pt to be going home today. Pt lives with her . Therefore discharge OT eval orders.
--- NOTE | 2020-11-07 09:59 | CM.DANOTE ---
Patient discharged home. Escorted out by ROBERTO Navarrete to private vehicle accompanied by Spouse. All discharge paperwork and belongings given to patient. No medications to be returned. IV D/C, intact. Patient verbalized understanding and denied any further questions.
--- NOTE | 2020-11-07 10:44 | CM.DANOTE ---
Discharge Planning/Care Management DCP: case received and discussed in Team Rounds. DC order from PCP Dr. Anders noted. Went to check in on pt after Rounds. He had already left for home. Clinic followup planned with PCP. Advanced directive, confirm from FAMILY Start: 11/06/20 12:14 Freq: Q24H Status: Discharge Protocol: Document 11/06/20 12:14 EM (Rec: 11/06/20 12:15 EM [id number]) Advance Directive, confirm on record Time 12:14 Person contacted [place] Copy received No CM Discharge Assessment Start: 11/07/20 10:37 Freq: Status: Active Protocol: Document 11/07/20 10:44 ITV (Rec: 11/07/20 10:44 ITV [id number]) Discharge Planning Assessment Advance Directives? Yes Advance Directives on File No History Provided By Medical Record Prior Living Arrangements House Household Members spouse Is patient alert and oriented? Yes Discharge Plan Home
--- NOTE | 2020-11-07 13:37 | P.DS_ITS ---
History of Present Illness History of Present Illness Chief complaint: dizzy, high bp Narrative: Patient is an 84-year-old female otherwise healthy with hypertension who basically states that she had a dizzy episode today. Parent lay she bent over to get her newspaper this morning when she got up and felt quite dizzy and then felt like she was constantly leaning to the left. Had diff kind of focus to get herself straightened out. She did not have any headaches no real visual symptoms no numbness no tingling no weakness. She felt as if she had no trouble breathing or shortness of breath. She did not have any fevers or chills. Has overall been doing well. She had not been checking her blood pressure but last time she was in clinic she had a normal blood pressure. She did not have any nausea or vomiting. No urinary symptoms. Normal bowel movements. She was pretty much normal by the time she got to the hospital although she still felt like there was a little something going on with her leaning left side. Patient had 1 other episode which was a dizzy episode and maybe some kind of left-sided issue about 3 weeks ago. Has never had any other abnormality that. Was very similar lasted 3 hours she did not seek help. She otherwise has had no other significant change. Patient has not had any change in his medication she has not had any other changes otherwise. Feels well. Yesterday was a normal day. She has not had any weakness she has not been tripping no fine motor issues Past medical history is significant for hypertension, hyperlipidemia, Past surgical history unremarkable except for tonsillectomy and appendectomy Family history: Father with cirrhosis 65, mother age 86 with Alzheimer's Social history retired [employer] high school education. Discharge Providers Provider Date of admission: 11/06/20 10:53 Discharge Date: 11/07/20 Primary care physician: Dima Vazquez MD Consults: 11/06/20 13:49 Consult to Discharge Planning Routine Comment: Consult to Occupational Therapy Evaluate & Treat Comment: Physician Instructions: Evaluate and treat Consult to Physical Therapy Evaluate & Treat Comment: Physician Instructions: Evaluate and Treat Consult to Speech Therapy Evaluate & Treat Comment: Physician Instructions: Evaluate and treat Discharge provider: Dima Vazquez MD Summary Hospital Course Discharge Diagnosis: Dizziness Poorly controlled hypertension Hyperlipidemia Hospital Course: Dizziness. Patient was admitted asymptomatic. She had had this episode of leaning to the left. But her neurologic exam in hospital is completely normal she had no other further symptoms she was started on an aspirin a day and otherwise had done well. Her MRI was negative her echo was pending but she had no symptoms and was elected to discharge her home and will be followed up as an outpatient next week. She will call if any issues. She will be taking 81 mg aspirin once a day and hopefully will control her blood pressure better. Hypertension. Poorly controlled. Her last visit at our office was much improved but she persistently had elevated blood pressures in the hospital she was started on amlodipine and was improved but not at goals. Was elected not to push medicine any further and will see how she does an outpatient. Side effects were discussed. She will follow-up with me in 1 week. Hyperlipidemia no change in treatment. Exam Vital Signs (past 8 hours): - 11/07/20 09:00 Temperature 96.6 F L Pulse Rate 75 Respiratory Rate 16 Blood Pressure 160/84 H Pulse Oximetry 99 Oxygen Delivery Method Room Air Oxygen Flow Rate 0 Narrative Exam Narrative: Alert smiling female elderly in no acute distress. Neck supple without adenopathy JVD or bruits. Lungs are clear. Heart regular rate and rhythm without murmurs clicks rubs or gallops. Abdomen is soft. Extremities without cyanosis clubbing edema. Neurologic exam is totally normal today did not do Romberg Objective Labs Result Diagrams: 11/06/20 09:10 11/07/20 04:55 Labs: Laboratory Results - last 24 hr 11/07/20 04:55 Sodium 142 Potassium 4.4 Chloride 106 Carbon Dioxide 29 BUN 15 Creatinine 0.63 Estimated GFR > 60.0 BUN/Creatinine Ratio 23.8 H Glucose 94 Calcium 10.3 H PFSH Medical History Cervical spondylosis with radiculopathy Herniated nucleus pulposus with myelopathy, thoracic Surgical History History of appendectomy History of surgery on wrist Family History Mother Alzheimer disease Father Liver disease Social History household members: spouse Smoking Status: Former smoker Tobacco: How many years used: 20 alcohol intake: current substance use type: does not use Discharge Assessment & Plan Assessment and Plan Assessment: Will be discharged home and follow up next week she will call if any issues or problems Discharge Plan Discharge Plan Patient Disposition: Home Discharge orders & Medications Prescriptions: New aspirin 81 mg Tablet,Delayed Release (Dr/Ec) 81 mg PO DAILY Qty: 100 RF: 0 amlodipine 5 mg tablet 5 mg PO DAILY Qty: 30 RF: 2 Continued simvastatin 20 mg tablet 20 mg PO QDAY RF: 0 lisinopril 40 mg tablet 40 mg PO QDAY RF: 0 gabapentin 300 mg capsule 300 mg PO DAILY PRN (Reason: Pain (Scale Score 1-3)) RF: 0 tramadol 50 mg tablet 50 mg PO BID MDD 100mg PRN (Reason: pain) Qty: 30 RF: 1 Follow up/Referrals: Dima Vazquez MD [Primary Care Provider] - 11/14/20 2:45 pm (appt: 11/14 @ 2:[address] vazquez ) Discharge Health Status Multidrug resistant organism: No MDRO Diet/Activity/Treatments Diet: Diet as Tolerated Activity: as tolerated Other treatments: check blood pressure daily and bring blood pressure cuff to follow up appointment to check for accuracy. Visit Report/Discharge Packet Instructions: DI for Transient Ischemic Attack Discharge Data Primary Care Provider: Dima Vazquez Attending Provider: Dima Vazquez
== END 2020-11-07 10:00 | disposition home or self-care (01) ==
LOC: ED 10:51 → AC 10:54
PROVIDERS: Admitting Provider Family Medicine; Emergency Provider Emergency Medicine; PCP Family Medicine; Referring Provider Emergency Medicine; Visit Provider Family Medicine
DX: R42 Dizziness and giddiness (principal); I10 Essential (primary) hypertension; E78.5 Hyperlipidemia, unspecified; Z20.822 Contact with and (suspected) exposure to COVID-19
CPT/HCPCS: 36415; 70450; 70496; 70498; 70548; 70553; 71045; 80048; 80053; 82550; 83690; 83735; 83880; 84484; 85025; 87635; 93005; 93306; 97161; 99283; 99284; C9803; G0378

== ENCOUNTER → 2020-11-16 09:27 | Outpatient (CLI) | payer MEDICARE, OTHER, SELFPAY ==
[2020-11-06 12:11] VITALS: BMI 25.8
--- NOTE | 2020-12-14 08:50 | PM.CARDMON.1 ---
Biometrics Experimentalist Report Referral & Results Date Patient Seen: 11/16/20 Requesting provider: Dima Anders Indication: TIA Duration of monitoring (days): 14 Diary information: There were no patient events to review Data: Minimum heart rate identified was 46 beats per minute at 06:18 on 11/24/2020 Maximum sinus heart rate was 101 beats per minute at 12:07 on 11/21/2020 Maximum overall heart rate was 120 beats per minute at 14:50 on 11/17/2020 during a run of SVT Approximately 1% of identified beats were supraventricular ectopic in origin which would classify them as occasional Less than 1% of identified beats were ventricular ectopic in origin which would classify them as rare There were 47 runs of SVT/atrial tachycardia the fastest lasting 12.7 seconds at a maximum rate of 120 beats per minute, this was also the longest run. There was 1 pause of 3.1 seconds also identified No atrial fibrillation identified Impression: Patient with 1 significant pause as above which may be an etiology for altered mental status or TIA. Patient also with rare brief runs of supraventricular origin either atrial tachycardia or SVT. Clinical correlation suggested
== END ==
PROVIDERS: PCP Family Medicine; Referring Provider Family Medicine; Visit Provider Family Medicine
DX: G45.9 Transient cerebral ischemic attack, unspecified (principal)
CPT/HCPCS: 93246; 93248

== ENCOUNTER → 2020-12-21 10:31 | Outpatient (CLI) | payer MEDICARE, OTHER, SELFPAY ==
[2020-11-06 12:11] VITALS: BMI 25.8
== END ==
PROVIDERS: Family Provider Family Medicine; PCP Family Medicine; Referring Provider Family Medicine; Visit Provider Family Medicine
DX: R20.2 Paresthesia of skin (principal)
CPT/HCPCS: 95886; 95910

== ENCOUNTER → 2021-04-25 08:25 | Outpatient (CLI) | payer MEDICARE, OTHER, SELFPAY ==
[2020-11-06 12:11] VITALS: BMI 25.8
--- NOTE | 2021-04-25 | DI.RAD.S_ITS ---
PROCEDURE: XR CHEST 2V INDICATIONS: COUGH TECHNIQUE: 2 views of the chest were acquired. COMPARISON: [facility], CR, XR CHEST 1V, 11/06/2020, 9:18. FINDINGS: Surgical changes and devices: None. Lungs and pleura: There are new, moderate-sized focal consolidations involving the right upper lung zone, right lung base, left mid lung zone, and left lung base. No pleural effusions or pneumothorax. Mediastinum: Mediastinal contours are normal. Heart size is normal. Bones and chest wall: No suspicious bony abnormalities. Soft tissues appear unremarkable. IMPRESSION: Interval development of multifocal consolidations likely representing multifocal pneumonia. Recommend follow up chest radiograph 4-6 weeks after treatment to document resolution of findings and/or return to baseline examination. Findings were discussed with Dr. Bower at 0858hrs Dictated by: Eliot Allred M.D. on 04/25/2021 at 8:54 Approved by: Eliot Allred M.D. on 04/25/2021 at 9:02
== END ==
PROVIDERS: Family Provider Family Medicine; PCP Family Medicine; Referring Provider Family Medicine; Visit Provider Family Medicine
DX: R05.9 Cough, unspecified (principal)
CPT/HCPCS: 71046

== ENCOUNTER 2021-04-25 08:58 | Inpatient (IN) | payer MEDICARE, OTHER, SELFPAY ==
[2020-11-06 12:11] VITALS: BMI 25.8
[2021-04-25] VITALS (16 sets, daily range): BP systolic 115–153; BP diastolic 53–74; PULSE 69–96; RESP 16–38; TEMP 36.8–37.5; O2SAT 92–95; BMI 25.7
--- NOTE | 2021-04-25 09:24 | ED_ITS ---
HPI - SOB/Dyspnea General Chief Complaint: Shortness of Breath/Dyspnea Stated Complaint: sob, radiologist brought over Time Seen by Provider: 04/25/21 09:01 History of Present Illness HPI Narrative: 85-year-old female former smoker with history of TIA, hypertension, hyperlipidemia presents with her at the request of diagnostic imaging. She has been feeling ill, gradually worsening over the past 10 or 11 days and had an outpatient chest x-ray this morning. Radiology called over requesting she be seen and evaluated in the emergency department given her chest x-ray findings consistent with a widespread multifocal pneumonia. She states that she has had increasing shortness of breath particularly with exertion and also flying flat. She has had subjective fever and chills and feels generally weak with increasingly poor appetite. She denies any chest pain, she has had cough occasionally productive of yellowish sputum. She has mild nausea but denies any abdominal pain or vomiting. She has no change in bowel habits. She is fully vaccinated including booster against COVID-19 Related Data Home Medications Medication Instructions Recorded Confirmed lisinopril 40 mg tablet 40 mg PO QDAY 08/12/17 11/06/20 simvastatin 20 mg tablet 20 mg PO QDAY 08/12/17 11/06/20 gabapentin 300 mg capsule 300 mg PO DAILY PRN 04/28/20 11/06/20 Previous Rx's Medication Instructions Recorded tramadol 50 mg tablet 50 mg PO BID PRN #30 tab MDD 100mg 04/28/20 amlodipine 5 mg tablet 5 mg PO DAILY #30 tab 11/07/20 aspirin 81 mg tablet,delayed 81 mg PO DAILY #100 tab 11/07/20 release Allergies Allergy/AdvReac Type Severity Reaction Status Date / Time No Known Drug Allergies Allergy Verified 11/06/20 10:48 Review of Systems Review of Systems Narrative: GENERAL: See HPI HEENT: Denies sinus pain, ear pain, sore throat, difficulty swallowing, dizziness. RESPIRATORY: See HPI CARDIOVASCULAR: Denies chest pain, palpitations, orthopnea, edema, GASTROINTESTINAL: See HPI : Denies dysuria, frequency, incontinence, hematuria, urinary retention. MUSCULOSKELETAL: denies weakness, joint pain, or bony pain SKIN: Denies rash, skin lesions, or other NEUROLOGIC: Denies weakness, headache, numbness, change in speech, confusion, seizures, incoordination. PSYCHIATRIC: No concerning psychosocial issues. 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 Well-developed patient, in mild distress. HEAD: Atraumatic. Normocephalic. EYES: Pupils equal round and reactive. Extraocular motions intact. No scleral icterus. No injection or drainage. ENT: Nose without bleeding, purulent drainage. Throat without erythema, t onsillar hypertrophy or exudate. Airway patent. NECK: Trachea midline. Non tender CARDIOVASCULAR: Regular rate and rhythm without murmurs, gallops, or rubs. RESPIRATORY: Clear to auscultation. Breath sounds equal bilaterally. No wheezes, rales, or rhonchi. GASTROINTESTINAL: Abdomen soft, non-tender, nondistended. EXTREMITIES: No edema or joint tenderness. BACK: Nontender without deformity or crepitance. No flank tenderness. NEURO: AOx3. SKIN: No rash or erythema of visible areas Initial Vital Signs Initial Vital Signs: Vital Signs Temperature 98.3 F 04/25/21 09:29 Pulse Rate 85 04/25/21 09:29 Respiratory Rate 20 04/25/21 09:29 Blood Pressure 147/65 H 04/25/21 09:29 Pulse Oximetry 95 04/25/21 09:29 Course Orders Ordered: ED Orders 04/25/21 09:01 Consult to Respiratory Therapy Evaluate & Treat 04/25/21 09:15 Complete Blood Count AUTO DIFF Stat Comprehensive Metabolic Panel Stat Lactate (Lactic Acid) Stat Magnesium Stat NT-proBNP (BNP-Adult 18+) Stat Procalcitonin Stat Respiratory Panel (Film Array) Stat Troponin & CK Cardiac Panel Stat 04/25/21 09:56 EKG-12 Lead Routine EKG-12 Lead Stat 04/25/21 10:16 Blood Culture Stat Discontinued Medications Ceftriaxone Sodium 1,000 mg/ (Sodium Chloride) 100 mls @ 200 mls/hr IV NOW ONE Stop: 04/25/21 10:24 Last Admin: 04/25/21 10:35 Dose: 200 mls/hr Documented by: Azithromycin 500 mg/ Dextrose 250 mls @ 250 mls/hr IV NOW ONE Stop: 04/25/21 10:24 Consultations Consultation #1: Discussed with Dr. Anders, he is happy to care for the patient and will see upon arrival to the floor Vital Signs Vital signs: Vital Signs - 8 hr 04/25/21 09:29 Temperature 98.3 F Pulse Rate 85 Respiratory Rate 20 Blood Pressure 147/65 H Pulse Oximetry 95 MDM - SOB/Dyspnea Lab Data Result diagrams: 04/25/21 09:15 04/25/21 09:15 Labs: Lab Results 04/25/21 04/25/21 04/25/21 Range/Units 09:15 09:15 09:15 WBC 22.4 H (4.5-11.0) X10^3/uL RBC 3.80 L (4.0-5.2) X10^6/uL Hgb 11.6 L (12.0-16.0) g/dL Hct 34.5 L (36-46) % MCV 90.7 (80-100) fL MCH 30.4 (26-34) PG MCHC 33.5 (30-36) % RDW 12.8 (11.6-14.8) % Plt Count 786 H (150-400) X10^3/uL Neut % (Auto) Not Reportable Lymph % (Auto) Not Reportable Borden % (Auto) Not Reportable Eos % (Auto) Not Reportable Baso % (Auto) Not Reportable Lymph # (Auto) Not Reportable Borden # (Auto) Not Reportable Baso # (Auto) Not Reportable Total Counted 100 Seg Neutrophils % 89.0 H (38-70) % Band Neutrophils % 1.0 L (3-7) % Lymphocytes % (Manual) 4.0 L (25-45) % Atypical Lymphs % 1.0 H ( - 0) % Monocytes % (Manual) 5.0 (2-11) % Neutrophils # (Manual) 51702 H (4989-3148) /uL RBC Morphology Normal morphology Sodium 135 L (137-145) mmol/L Potassium 3.9 (3.4-5.1) mmol/L Chloride 98 (98-107) mmol/L Carbon Dioxide 26 (22-32) mmol/L BUN 16 (7-17) mg/dL Creatinine 0.62 (0.52-1.04) mg/dL Estimated GFR > 60.0 (>60) mL/min BUN/Creatinine Ratio 25.8 H (6-22) Glucose 111 H (80-110) mg/dL Lactate 1.8 (0.7-2.1) mmol/L Calcium 9.6 (8.4-10.2) mg/dL Magnesium 2.4 H (1.6-2.3) mg/dL Total Bilirubin 0.6 (0.2-1.3) mg/dL AST 40 H (14-36) IU/L ALT 41 H (<35) IU/L Alkaline Phosphatase 127 H (38-126) U/L Total Creatine Kinase 62 (30-135) U/L CK-MB (CK-2) TNP CK-MB (CK-2) Rel Index TNP Troponin I 0.029 (0.01-0.034) ng/mL NT-Pro-B Natriuret Pep 874 H (<450) pg/mL Total Protein 7.9 (6.3-8.2) g/dL Albumin 4.0 (3.5-5.0) g/dL Globulin 3.9 (1.7-4.1) g/dL Albumin/Globulin Ratio 1.0 (1.0-2.8) Procalcitonin 0.09 (<0.5) ng/mL Chlamy pneumoniae PCR (Not Detect) Adenovirus (PCR) (Not Detect) B. pertussis DNA (PCR) (Not Detecte) B.parapertussis DNA PCR (Not Detecte) Coronavirus OC43 (PCR) (Not Detect) Coronavirus HKU1 (PCR) (Not Detect) Coronavirus 229E (PCR) (Not Detect) SARS-CoV-2 (PCR) (Not Detecte) Coronavirus NL63 (PCR) (Not Detect) Human Metapneumovir PCR (Not Detect) Influenza Type A (PCR) (Not Detect) Influenza Type B (PCR) (Not Detect) M. pneumoniae (PCR) (Not Detect) Parainfluenza 1 (PCR) (Not Detect) Parainfluenza 2 (PCR) (Not Detect) Parainfluenza 3 (PCR) (Not Detect) Parainfluenza 4 (PCR) (Not Detect) RSV (PCR) (Not Detect) Entero/Rhino (PCR) (Not Detect) 04/25/21 Range/Units 09:15 WBC (4.5-11.0) X10^3/uL RBC (4.0-5.2) X10^6/uL Hgb (12.0-16.0) g/dL Hct (36-46) % MCV (80-100) fL MCH (26-34) PG MCHC (30-36) % RDW (11.6-14.8) % Plt Count (150-400) X10^3/uL Neut % (Auto) Lymph % (Auto) Borden % (Auto) Eos % (Auto) Baso % (Auto) Lymph # (Auto) Borden # (Auto) Baso # (Auto) Total Counted Seg Neutrophils % (38-70) % Band Neutrophils % (3-7) % Lymphocytes % (Manual) (25-45) % Atypical Lymphs % ( - 0) % Monocytes % (Manual) (2-11) % Neutrophils # (Manual) (8531-2025) /uL RBC Morphology Sodium (137-145) mmol/L Potassium (3.4-5.1) mmol/L Chloride (98-107) mmol/L Carbon Dioxide (22-32) mmol/L BUN (7-17) mg/dL Creatinine (0.52-1.04) mg/dL Estimated GFR (>60) mL/min BUN/Creatinine Ratio (6-22) Glucose (80-110) mg/dL Lactate (0.7-2.1) mmol/L Calcium (8.4-10.2) mg/dL Magnesium (1.6-2.3) mg/dL Total Bilirubin (0.2-1.3) mg/dL AST (14-36) IU/L ALT (<35) IU/L Alkaline Phosphatase (38-126) U/L Total Creatine Kinase (30-135) U/L CK-MB (CK-2) CK-MB (CK-2) Rel Index Troponin I (0.01-0.034) ng/mL NT-Pro-B Natriuret Pep (<450) pg/mL Total Protein (6.3-8.2) g/dL Albumin (3.5-5.0) g/dL Globulin (1.7-4.1) g/dL Albumin/Globulin Ratio (1.0-2.8) Procalcitonin (<0.5) ng/mL Chlamy pneumoniae PCR Not detected (Not Detect) Adenovirus (PCR) Not detected (Not Detect) B. pertussis DNA (PCR) Not detected (Not Detecte) B.parapertussis DNA PCR Not detected (Not Detecte) Coronavirus OC43 (PCR) Not detected (Not Detect) Coronavirus HKU1 (PCR) Not detected (Not Detect) Coronavirus 229E (PCR) Not detected (Not Detect) SARS-CoV-2 (PCR) Not detected (Not Detecte) Coronavirus NL63 (PCR) Not detected (Not Detect) Human Metapneumovir PCR Not detected (Not Detect) Influenza Type A (PCR) Not detected (Not Detect) Influenza Type B (PCR) Not detected (Not Detect) M. pneumoniae (PCR) Not detected (Not Detect) Parainfluenza 1 (PCR) Not detected (Not Detect) Parainfluenza 2 (PCR) Not detected (Not Detect) Parainfluenza 3 (PCR) Not detected (Not Detect) Parainfluenza 4 (PCR) Not detected (Not Detect) RSV (PCR) Not detected (Not Detect) Entero/Rhino (PCR) Not detected (Not Detect) Imaging Data Chest x-ray: My Impression: multifocal pneumonia Radiologist's Impression: Deana Bernal??85??F??1935 ? Allergy/Adv: No Known Drug Allergies (More??) Close Chest X-Ray (Signed) Eliot Allred - 04/25/21 Echocardiogram Ultrasound (Addendum) Dai Yeboah - 11/06/20 Telemetry Strips 11/06/20 Brain MRI (Signed) Avery Parks - 11/06/[address] (Signed) Kevin Tang - 11/06/20 Head/Neck CTA (Signed) Lauren Parkse - 11/06/20 Chest X-Ray (Signed) Kevin Tang - 11/06/20 Bone Densitometry 07/27/20 Echocardiogram Ultrasound (Signed) JohnRaymundo - 07/12/20 Thoracic Spine X-Ray (Signed) Carmina Mcmillan - 04/20/20 Cervical/Thoracic Injection (Signed) Ramesh Correa - 04/27/19 Thoracic Spine MRI (Signed) Fredrick Albrecht - 04/12/19 Knee X-Ray (Signed) Dominic Saxena - 03/10/[address] (Signed) Brendon Mendieta - 08/22/17 Wrist X-Ray (Signed) Xander Zheng - 08/12/17 Wrist X-Ray (Signed) Vish Alvarez - 08/12/17 Wrist X-Ray (Signed) German Galvin - 08/12/17 Scapular X-Ray (Signed) German Galvin - 08/12/17 Chest X-Ray (Signed) German Galvin - 08/12/17 [address] [address] XRay Report Signed Patient: Deana Bernal MR#: [id number] : 1935 Acct:[id number] Age/Sex: 85 / F Date of Service: 04/25/21 Loc: RAD Accession Number: [id number] ?? Procedure: XR chest 2V Ordering Provider: Dima Anders MD PROCEDURE:? XR CHEST 2V ? INDICATIONS:? COUGH ? TECHNIQUE:? 2 views of the chest were acquired.? ? COMPARISON:? [facility], , XR CHEST 1V, 11/06/2020, 9:18. ? FINDINGS:? ? Surgical changes and devices:? None.? ? Lungs and pleura:? There are new, moderate-sized focal consolidations involving the right upper lung zone, right lung base, left mid lung zone, and left lung base.? No p leural effusions or pneumothorax.? ? Mediastinum:? Mediastinal contours are normal.? Heart size is normal.? ? Bones and chest wall:? No suspicious bony abnormalities.? Soft tissues appear unremarkable.? ? IMPRESSION:? Interval development of multifocal consolidations likely representing multifocal pneumonia. ? Recommend follow up chest radiograph 4-6 weeks after treatment to document resolution of findings and/or return to baseline examination. ? Findings were discussed with Dr. Bower at 0858hrs ? ? Dictated by: Eliot Allred M.D. on 04/25/2021 at 8:54 ? ? Approved by: Eliot Allred M.D. on 04/25/2021 at 9:02 ? ECG Data Interpretation: Atrial fibrillation, rate in the 80s, no ST segmental elevations or depressions. Discharge Plan Departure Patient Disposition: Admitted As Inpatient Clinical Impression: Multifocal pneumonia, Atrial fibrillation, new onset Admit Date/Time: 04/25/21 10:45 Admit Provider: Dima Anders
[2021-04-25 09:35] LABS: Add Manual Diff / Slide Review YES; Hematocrit 34.5 % (36-46); Hemoglobin 11.6 g/dL (12.0-16.0); Mean Corpuscular HGB Conc 33.5 % (30-36); Mean Corpuscular Hemoglobin 30.4 PG (26-34); Mean Corpuscular Volume 90.7 fL (80-100); Platelet Count 786 X10^3/uL (150-400); Red Cell Distribution Width 12.8 % (11.6-14.8); White Blood Cell Count 22.4 X10^3/uL (4.5-11.0)
[2021-04-25 09:50] LABS: Neutrophils Absolute Manual 20160 /uL (3000-5900); RBC Morphology Normal Morphology; Total Cells Counted 100
[2021-04-25 09:57] LABS: Lactate (Lactic Acid) 1.8 mmol/L (0.7-2.1)
[2021-04-25 09:58] LABS: Alanine Aminotransferase 41 IU/L (<35); Alkaline Phosphatase 127 U/L (38-126); Aspartate Aminotransferase 40 IU/L (14-36); BUN Creatinine Ratio 25.8 (6-22); Bilirubin Total 0.6 mg/dL (0.2-1.3); Blood Urea Nitrogen 16 mg/dL (7-17); Calcium 9.6 mg/dL (8.4-10.2); Carbon Dioxide 26 mmol/L (22-32); Chloride 98 mmol/L (98-107); Creatine Kinase 62 U/L (30-135); Estimated Glomerular Filt Rate > 60.0 mL/min (>60); Globulin 3.9 g/dL (1.7-4.1); Glucose 111 mg/dL (80-110); HEMOLYSIS < 15 (0-50); Magnesium 2.4 mg/dL (1.6-2.3); Potassium 3.9 mmol/L (3.4-5.1); Sodium 135 mmol/L (137-145); Total Protein 7.9 g/dL (6.3-8.2)
[2021-04-25 10:11] LABS: NT-proBNP (BNP-Adult 18+) 874 pg/mL (<450); Troponin I 0.029 ng/mL (0.01-0.034)
[2021-04-25 10:15] LABS: Procalcitonin 0.09 ng/mL (<0.5)
[2021-04-25 10:22] LABS: Adenovirus Not Detected (Not Detect); B. parapertussis Not Detected (Not Detecte); Bordetella pertussis Not Detected (Not Detecte); Chlamydophila pneumoniae Not Detected (Not Detect); Coronavirus 229E Not Detected (Not Detect); Coronavirus HKU1 Not Detected (Not Detect); Coronavirus NL 63 Not Detected (Not Detect); Coronavirus OC43 Not Detected (Not Detect); Human Metapneumovirus Not Detected (Not Detect); Human Rhinovirus/Enterovirus Not Detected (Not Detect); Influenza A Not Detected (Not Detect); Influenza B Not Detected (Not Detect); Mycoplasma pneumoniae Not Detected (Not Detect); Parainfluenza Virus 1 Not Detected (Not Detect); Parainfluenza Virus 2 Not Detected (Not Detect); Parainfluenza Virus 3 Not Detected (Not Detect); Parainfluenza Virus 4 Not Detected (Not Detect); Respiratory Syncytial Virus Not Detected (Not Detect); SARS- CoV-2 Not Detected (Not Detecte)
[2021-04-25] MEDS: cefTRIAXone 1,000 MG in SODIUM CHLORIDE 0.9% 100 ML 200 ML IV (10:35)
[2021-04-25 10:55] LABS: Appearance Urine UA CLEAR; Bilirubin Urine UA NEGATIVE (NEGATIVE); Color Urine UA YELLOW; Glucose Urine UA NEGATIVE (Negative); Ketones Urine UA 1+ (NEGATIVE); Leukocyte Esterase Urine UA TRACE (NEGATIVE); Nitrite Urine UA NEGATIVE (Negative); Occult Blood Urine UA 1+ (Negative); Protein Urine UA 1+ (Negative); Specific Gravity Urine UA 1.015 (1.000-1.035); Urobilinogen Urine UA 0.2 E.U./dL (0.2)
[2021-04-25 10:56] LABS: pH Urine UA 5.5 (4.5-8.0)
[2021-04-25 11:02] LABS: Bacteria Urine None Seen; Culture Indicated Urine Cult Not Indicated; RBC Urine 1-5/HPF (0-5/HPF); WBC Urine None Seen (0-5/HPF)
[2021-04-25] MEDS: AZITHROMYCIN 500 MG in DEXTROSE 5% IN WATER 250 ML IV (11:12)
--- NOTE | 2021-04-25 15:08 | DI.ECHO.S_ITS ---
[facility]---------+ [facility] +---------+ : : [address] : : : : [id number] : : : : Phone: [phone]+ Echocardiogram Report + + :Name: LOBO HU Study Date: 04/26/2021 Height: 65 in : :[facility] ReadingLocation: Weight: 160 lb : : Gender: Female BSA: 1.8 m2 : :: 1935 Age: 85 yrs BP: 115/53 mmHg: :Reason For Study: ATRIAL FIBRILLATION : :Ordering Physician: IAN, : :DAWSON Performed By: Ronda Garcias : :Referring: DAWSON SOSA : + + Interpretation Summary The ejection fraction is estimated to be 60-65%. Diastolic function could not be accurately assessed due to atrial fibrillation. The right ventricle is normal in size and function. Biatrial enlargement. Mild mitral regurgitation. Moderate tricuspid regurgitation. PASP is approximately 50 to 55 mmHg. The ascending aorta is mildly enlarged. Compared to the prior study dated 11/06/2020, no significant change other than the rhythm is now atrial fibrillation instead of sinus. Procedure: A two-dimensional transthoracic echocardiogram with color flow and Doppler was performed. The study quality was technically adequate. Comparison is made with the echocardiogram of 11/06/2020. The patient was in atrial fibrillation with heart rates between 70-90 bpm during the exam. Left Ventricle: The left ventricle is normal in size and wall thickness. The ejection fraction is estimated to be 60-65%. Diastolic function could not be accurately assessed due to atrial fibrillation. Right Ventricle: The right ventricle is normal in size and function. Atria: The left atrium is severely dilated. The right atrium is moderately dilated. There is no Doppler evidence for an interatrial shunt. Mitral Valve: The mitral valve is normal in structure and function. There is mild mitral regurgitation. Aortic Valve: The aortic valve is trileaflet. The aortic valve is slightly calcified. The aortic valve opens well. There is no aortic valve stenosis. No aortic regurgitation is present. Tricuspid Valve: The tricuspid valve is normal in structure and function. There is moderate tricuspid regurgitation. PASP is approximately 50 to 55 mmHg. Pulmonic Valve: The pulmonic valve is not well visualized. There is trace pulmonic regurgitation. Great Vessels: The aortic root is normal size. The ascending aorta is mildly enlarged. The IVC is of normal diameter and collapses greater than 50% with a sniff. This suggests a low right atrial pressure of 3 mm Hg. Pericardium/ Pleura There is no pericardial effusion. There is no pleural effusion. MMode/2D Measurements & Calculations LVIDd: 4.0 cm LVOT diam: 1.9 cm LVIDs: 2.6 cm Ao root diam: 3.4 cm FS: 35.3 % asc Aorta Diam: 3.5 cm IVSd: 0.95 cm Ao Arch Diam (Prox Trans): 2.0 cm LVPWd: 0.82 cm LV bunch. diameter/BSA (cm/m^2): 2.2 LV sys. diameter/BSA (cm/m^2): 1.4 LA A2 area: 26.8 cm2 RA long axis: 6.5 cm LA A4 area: 25.7 cm2 RA area: 23.4 cm2 LA length (vol): 6.3 cm RA vol: 71.7 ml LA vol: 93.4 ml RA : 39.9 ml/m2 LA vol index: 51.9 ml/m2 IVC diam: 1.7 cm RVD1 (basal): 3.3 cm TAPSE: 1.6 cm Doppler Measurements & Calculations Ao V2 max: 199.8 cm/sec LVOT Max Christophe: 138.6 cm/sec Ao V2 mean: 133.7 cm/sec LV V1 max P.7 mmHg Ao max P.0 mmHg LV V1 VTI: 25.8 cm Ao mean P.1 mmHg SADIE(I,D): 2.0 cm2 Ao V2 VTI: 35.6 cm SADIE(V,D): 1.9 cm2 sev ratio: 0.72 SADIE indexed to BSA (cm^2/m^2): 1.1 MV E max christophe: 112.5 cm/sec TR max christophe: 331.5 cm/sec MV A max christophe: 2.6 cm/sec TR max P.0 mmHg MV E/A: 42.9 PA V2 max: 142.9 cm/sec Med Peak E' Christophe: 7.9 cm/sec PA V2 mean: 100.7 cm/sec E/E' med: 14.2 PA mean P.4 mmHg Lat Peak E' Christophe: 9.1 cm/sec PA pr(Accel): 53.3 mmHg E/E' lat: 12.3 E/e' average: 13.2 MV dec time: 0.25 sec SV(LVOT): 70.0 ml Reading Physician:10:33 AM
[2021-04-25] MEDS: SODIUM CHLORIDE 0.9% 1,000 ML 100 ML IV (16:00)
--- NOTE | 2021-04-25 19:26 | PC.NURSE ---
Pt arrived from ED A&OX3, VSS, afebrile on RA. Denies SOB. She reports experiencing SOB with ambulating short distances and lying flat. No edema noted. LS diminished, no cough observed. Pt with fair po intake this evening. IVF NS @100ml/hr. Denies GIL, or chest pain. Plan for IV antibiotics, BCX pending, echo in a.m.
--- NOTE | 2021-04-25 21:27 | P.HP_ITS ---
History of Present Illness History of Present Illness Date Patient Seen: 04/25/21 Time Patient Seen: 12:00 Date of Onset of Symptoms: 04/18/21 Chief complaint: sob, radiologist brought over Narrative: Patient is an 85-year-old female well known to me with history of multiple medical problems who presents with 1 week history of cough shortness of breath. Patient had not had any exposure to COVID. She had been in her usual state of health until she started getting fevers shortness of breath cough which was been productive. She has not had any headaches visual changes. No nausea or vomiting. She has not noticed any palpitations or other changes. She has not had any chest pain. She has been slowly getting more short of breath when she ambulates but has not had any other changes. I had seen her on Friday as a car visit and at that time she was comfortably breathing but having fevers to 102. COVID was obtained in 24 hours later was negative. At that point labs and chest x-ray were obtained. When she came to the x-ray she was increasingly short of breath and referred to the emergency room. She has not had any urinary changes no change in her bowel movements no appetite changes. She is fully vaccinated. Patient had a history of atrial fibrillation with admission back in November. Echo at that time showed enlarged left atrium but otherwise unremarkable with no significant valvular disease. She converted in very short period time. She has had monitoring in the past that did not show any other abnormality. Patient is an ex-smoker. But has no other changes. Has but otherwise been feeling in her usual health. Past medical history: TIA, insomnia, hypertension, hyperlipidemia, but no cardiac history. Past surgical history status post tonsillectomy and appendectomy Family history father 65 with cirrhosis alcohol abuse, mother Alzheimer's age 86 Social history but has been retired [employer]. 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 Education 12 years. One year of college. 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, thoracic Surgical History History of appendectomy History of surgery on wrist Family & Social History Family History Mother Alzheimer disease Father Liver disease Social History: household members spouse Prior Living Arrangements House Safety & Behavioral: Feels Safe in Current Yes Environment Been Physically Hurt or No Threatened By a Person Suicidal Ideation Description None Suicide Plan Description No Plan Tobacco & Substance use: Smoking Status Former smoker Smoking packs per day 1 alcohol intake former alcohol intake frequency 0-2 drinks per day Substance Use Type does not use Meds Home Medications and Allergies Home Medications Medication Instructions Recorded Confirmed Type lisinopril 40 mg tablet 40 mg PO QDAY 08/12/17 04/25/21 History simvastatin 20 mg tablet 20 mg PO QDAY 08/12/17 04/25/21 History gabapentin 300 mg capsule 300 mg PO DAILY PRN 04/28/20 04/25/21 History tramadol 50 mg tablet 50 mg PO BID PRN #30 tab MDD 100mg 04/28/20 04/25/21 Rx aspirin 81 mg tablet,delayed 81 mg PO DAILY #100 tab 11/07/20 04/25/21 Rx release amlodipine 5 mg tablet (Norvasc) 10 mg 04/25/21 History Allergies Allergy/AdvReac Type Severity Reaction Status Date / Time No Known Drug Allergies Allergy Verified 11/06/20 10:48 Review of Systems Review of Systems Narrative: See above history and physical otherwise negative Exam Vital Signs (past 8 hours): - 04/25/21 15:01 Temperature 99.3 F Pulse Rate 96 H Respiratory Rate 16 Blood Pressure 136/62 Pulse Oximetry 92 Oxygen Delivery Method Room Air Oxygen Flow Rate 0 Narrative Exam Narrative: Alert elderly female no acute distress. Sitting comfortably in bed. HEENT exam mucous membranes moist. Neck supple without adenopathy JVD or bruits. Lungs show left-sided crackles almost a diffuse left lung field. Some right-sided but minimal heart is irregular with controlled rhythm. No murmurs clicks rubs or gallops. Abdomen is soft positive bowel sounds nontender. Extremities without cyanosis clubbing edema. Neurologic exam is completely normal. Objective Labs Result Diagrams: 04/25/21 09:15 04/25/21 09:15 Labs: Laboratory Results - last 24 hr 04/25/21 04/25/21 04/25/21 09:15 09:15 09:15 WBC 22.4 H RBC 3.80 L Hgb 11.6 L Hct 34.5 L MCV 90.7 MCH 30.4 MCHC 33.5 RDW 12.8 Plt Count 786 H Neut % (Auto) Not Reportable Lymph % (Auto) Not Reportable [place] % (Auto) Not Reportable Eos % (Auto) Not Reportable Baso % (Auto) Not Reportable Lymph # (Auto) Not Reportable [place] # (Auto) Not Reportable Baso # (Auto) Not Reportable Total Counted 100 Seg Neutrophils % 89.0 H Band Neutrophils % 1.0 L Lymphocytes % (Manual) 4.0 L Atypical Lymphs % 1.0 H Monocytes % (Manual) 5.0 Neutrophils # (Manual) 51327 H RBC Morphology Normal morphology Sodium 135 L Potassium 3.9 Chloride 98 Carbon Dioxide 26 BUN 16 Creatinine 0.62 Estimated GFR > 60.0 BUN/Creatinine Ratio 25.8 H Glucose 111 H Lactate 1.8 Calcium 9.6 Magnesium 2.4 H Total Bilirubin 0.6 AST 40 H ALT 41 H Alkaline Phosphatase 127 H Total Creatine Kinase 62 CK-MB (CK-2) TNP CK-MB (CK-2) Rel Index TNP Troponin I 0.029 NT-Pro-B Natriuret Pep 874 H Total Protein 7.9 Albumin 4.0 Globulin 3.9 Albumin/Globulin Ratio 1.0 Procalcitonin 0.09 Urine Color Urine Appearance Urine pH Ur Specific [place] Urine Protein Urine Glucose (UA) Urine Ketones Urine Occult Blood Urine Nitrate Urine Bilirubin Urine Urobilinogen Ur Leukocyte Esterase Urine RBC Urine WBC Urine Bacteria Ur Culture Indicated? Chlamy pneumoniae PCR Adenovirus (PCR) B. pertussis DNA (PCR) B.parapertussis DNA PCR Coronavirus OC43 (PCR) Coronavirus HKU1 (PCR) Coronavirus 229E (PCR) SARS-CoV-2 (PCR) Coronavirus NL63 (PCR) Human Metapneumovir PCR Influenza Type A (PCR) Influenza Type B (PCR) M. pneumoniae (PCR) Parainfluenza 1 (PCR) Parainfluenza 2 (PCR) Parainfluenza 3 (PCR) Parainfluenza 4 (PCR) RSV (PCR) Entero/Rhino (PCR) 04/25/21 04/25/21 09:15 10:50 WBC RBC Hgb Hct MCV MCH MCHC RDW Plt Count Neut % (Auto) Lymph % (Auto) [place] % (Auto) Eos % (Auto) Baso % (Auto) Lymph # (Auto) [place] # (Auto) Baso # (Auto) Total Counted Seg Neutrophils % Band Neutrophils % Lymphocytes % (Manual) Atypical Lymphs % Monocytes % (Manual) Neutrophils # (Manual) RBC Morphology Sodium Potassium Chloride Carbon Dioxide BUN Creatinine Estimated GFR BUN/Creatinine Ratio Glucose Lactate Calcium Magnesium Total Bilirubin AST ALT Alkaline Phosphatase Total Creatine Kinase CK-MB (CK-2) CK-MB (CK-2) Rel Index Troponin I NT-Pro-B Natriuret Pep Total Protein Albumin Globulin Albumin/Globulin Ratio Procalcitonin Urine Color Yellow Urine Appearance Clear Urine pH 5.5 Ur Specific [place] 1.015 Urine Protein 1+ H Urine Glucose (UA) Negative Urine Ketones 1+ H Urine Occult Blood 1+ H Urine Nitrate Negative Urine Bilirubin Negative Urine Urobilinogen 0.2 Ur Leukocyte Esterase Trace H Urine RBC 1-5/hpf Urine WBC None seen Urine Bacteria None seen Ur Culture Indicated? Cult not indicated Chlamy pneumoniae PCR Not detected Adenovirus (PCR) Not detected B. pertussis DNA (PCR) Not detected B.parapertussis DNA PCR Not detected Coronavirus OC43 (PCR) Not detected Coronavirus HKU1 (PCR) Not detected Coronavirus 229E (PCR) Not detected SARS-CoV-2 (PCR) Not detected Coronavirus NL63 (PCR) Not detected Human Metapneumovir PCR Not detected Influenza Type A (PCR) Not detected Influenza Type B (PCR) Not detected M. pneumoniae (PCR) Not detected Parainfluenza 1 (PCR) Not detected Parainfluenza 2 (PCR) Not detected Parainfluenza 3 (PCR) Not detected Parainfluenza 4 (PCR) Not detected RSV (PCR) Not detected Entero/Rhino (PCR) Not detected Assessment & Plan Assessment & Plan narrative: Pneumonia. Bilateral. Probably bacterial. No evidence of COVID. On testing x2. Elevated white count but no evidence of significant hypoxia or sepsis syndrome. Patient will placed on antibiotics for community-acquired pneumonia. And we will follow. And will watch closely and oxygen is needed. New onset atrial fibrillation. Probably has intermittent disease. Patient has had recent back an November of this year at with AFib which converted. She may need to be on long-term anticoagulation. Will discuss with her and insurance verification rep. But at this point rate seems to be controlled and will follow. Will watch on tele. History of TIA. Will continue aspirin. Hypertension. Stable at this time will continue usual medicines. Hyperlipidemia. Will continue usual statin. DVT prophylaxis will place on Lovenox. GI prophylaxis should be low risk. Code status. Patient desires DNR. Comfortable not decision. Disposition. Suspect will be here 3 or 4 days depending on how she responds to treatment. Patient has no evidence of ischemic cardiac disease. And will c ontinue to follow. No reason to think she will go home at the end of this. Up spent 40 minutes discussing with patient emergency room doctor, reviewing labs and discussing with nursing. Dictating and orders and plan. Time Spent With Patient Critical Care time: I spent a total of [] minutes of critical care time on this patient's care today; this time is exclusive of procedural time.
[2021-04-26] VITALS (11 sets, daily range): BP systolic 119–153; BP diastolic 48–66; PULSE 77–87; RESP 16–18; TEMP 36.5–37.5; O2SAT 91–94
[2021-04-26] MEDS: SODIUM CHLORIDE 0.9% 1,000 ML 100 ML IV (01:52)
[2021-04-26 05:39] LABS: Add Manual Diff / Slide Review NO; Basophils Absolute Auto 100 /uL (0-100); Basophils Percent Auto 0.7 % (0-2); Eosinophils Absolute Auto 200 /uL (0-450); Eosinophils Percent Auto 0.9 % (2-4); Hematocrit 32.8 % (36-46); Hemoglobin 11.1 g/dL (12.0-16.0); Lymphocytes Absolute Auto 1600 /uL (1100-4500); Lymphocytes Percent Auto 8.3 % (25-40); Mean Corpuscular HGB Conc 33.9 % (30-36); Mean Corpuscular Hemoglobin 30.7 PG (26-34); Mean Corpuscular Volume 90.5 fL (80-100); Monocytes Absolute Auto 1100 /uL (0-900); Monocytes Percent Auto 5.6 % (3-14); Neutrophils Absolute Auto 15900 /uL (1500-7000); Neutrophils Percent Auto 84.5 % (50-75); Platelet Count 724 X10^3/uL (150-400); Red Blood Cell Count 3.62 X10^6/uL (4.0-5.2); Red Cell Distribution Width 12.9 % (11.6-14.8); White Blood Cell Count 18.8 X10^3/uL (4.5-11.0)
[2021-04-26 05:45] LABS: BUN Creatinine Ratio 28.3 (6-22); Blood Urea Nitrogen 15 mg/dL (7-17); Calcium 9.1 mg/dL (8.4-10.2); Carbon Dioxide 28 mmol/L (22-32); Chloride 102 mmol/L (98-107); Estimated Glomerular Filt Rate > 60.0 mL/min (>60); Glucose 110 mg/dL (80-110); HEMOLYSIS < 15 (0-50); Potassium 4.1 mmol/L (3.4-5.1); Sodium 135 mmol/L (137-145)
[2021-04-26] MEDS: ENOXAPARIN 40 MG/0.4 ML SYRINGE SUBCUT (08:49)
[2021-04-26] MEDS: ASPIRIN EC 81 MG TABLET PO (08:50)
[2021-04-26] MEDS: AZITHROMYCIN 500 MG in DEXTROSE 5% IN WATER 250 ML IV (08:50)
[2021-04-26] MEDS: ATORVASTATIN 20 MG TABLET 10 MG PO (10:10)
[2021-04-26 12:28] LABS: NT-proBNP (BNP-Adult 18+) 2000 pg/mL (<450)
[2021-04-26] MEDS: cefTRIAXone 1,000 MG in SODIUM CHLORIDE 0.9% 100 ML 200 ML IV (12:31)
[2021-04-26] MEDS: FUROSEMIDE 40 MG/4 ML VIAL IV (14:23)
--- NOTE | 2021-04-26 19:14 | P.PN_ITS ---
Subjective Subjective Date Patient Seen: 04/26/21 Time Patient Seen: 08:00 Interval history: Patient is feeling better today in terms of her breathing. She still feels exhausted. She is hungry but just does not have much appetite. She is not having any chest pain. She does have difficulty laying flat she has trouble breathing that way. She denies any lower extremity edema. She denies any diarrhea or constipation. She does not have a productive cough All point review of systems is otherwise unremarkable Exam Vital Signs (past 8 hours): - 04/26/21 14:13 04/26/21 18:00 Temperature 99.0 F 99.1 F Pulse Rate 77 80 Respiratory Rate 18 18 Blood Pressure 135/65 119/48 L Pulse Oximetry 92 94 Oxygen Delivery Method Room Air Oxygen Flow Rate 0 Narrative Exam Narrative: T-max is 99?, vital signs are stable blood pressure is 140s over 80s HEENT: Patient appears very tired and otherwise alert and oriented x3 and zeinab ears younger than her stated age Neck: Supple without adenopathy thyromegaly jugular venous distention or bruits Chest: Decreased breath sounds bibasilar with rhonchi. No significant wheezes. No crackles Or: Irregularly irregular rhythm with a well-controlled rate Abdomen: Positive bowel sounds, soft, nontender, nondistended Extremities no edema, pulses intact Objective Labs Result Diagrams: 04/26/21 04:55 04/26/21 04:55 Labs: Laboratory Results - last 24 hr 04/26/21 04/26/21 04/26/21 04:55 04:55 04:55 WBC 18.8 H RBC 3.62 L Hgb 11.1 L Hct 32.8 L MCV 90.5 MCH 30.7 MCHC 33.9 RDW 12.9 Plt Count 724 H Neut % (Auto) 84.5 H Lymph % (Auto) 8.3 L [place] % (Auto) 5.6 Eos % (Auto) 0.9 L Baso % (Auto) 0.7 Neut # (Auto) 24268 H Lymph # (Auto) 1600 [place] # (Auto) 1100 H Eos # (Auto) 200 Baso # (Auto) 100 Sodium 135 L Potassium 4.1 Chloride 102 Carbon Dioxide 28 BUN 15 Creatinine 0.53 Estimated GFR > 60.0 BUN/Creatinine Ratio 28.3 H Glucose 110 Calcium 9.1 NT-Pro-B Natriuret Pep 2000 H [facility] Medical History Cervical 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 I reviewed her chart and her workup thus far and met with patient and formulated a plan 85-year-old female hospital day 2. For bilateral community-acquired bacterial pneumonia Assessment 1. Community-acquired bacterial pneumonia stable with slight improvement Plan: Continue the azithromycin and the ceftriaxone. Will continue with supportive care Assessment 2. Paroxysmal atrial fibrillation with RVR on admit with probable fluid overload based on her exam Plan: Will go ahead and put her on Lasix 40 mg IV x1. Will stop IV fluids Will continue with telemetry. Dr. Anders will decide about anticoagulation S min 3. Hypertension Plan: Will go ahead and restart her amlodipine and her lisinopril Will start the lisinopril April 27 a.m.. Will give amlodipine tonight. Assessment 4. Peripheral neuropathy Plan: Continue gabapentin Assessment 5. Hyperlipidemia Plan: Continue with simvastatin Assessment 6. Leukocytosis with slight improvement but fairly slow Plan: Continue with IV antibiotics and reassess in a.m. Assessment 7. Mild anemia Plan: Will continue to monitor Time Spent With Patient Critical Care time: I spent a total of [] minutes of critical care time on this patient's care today; this time is exclusive of procedural time.
[2021-04-26] MEDS: AMLODIPINE 5 MG TABLET 10 MG PO (21:13)
[2021-04-27] VITALS (7 sets, daily range): BP systolic 139–153; BP diastolic 45–70; PULSE 67–72; RESP 15–18; TEMP 36.1–36.9; O2SAT 92–95
[2021-04-27 05:02] LABS: Add Manual Diff / Slide Review NO; Basophils Absolute Auto 100 /uL (0-100); Basophils Percent Auto 0.5 % (0-2); Eosinophils Absolute Auto 200 /uL (0-450); Eosinophils Percent Auto 1.3 % (2-4); Hemoglobin 10.9 g/dL (12.0-16.0); Lymphocytes Absolute Auto 1600 /uL (1100-4500); Lymphocytes Percent Auto 9.1 % (25-40); Mean Corpuscular HGB Conc 34.2 % (30-36); Mean Corpuscular Hemoglobin 30.8 PG (26-34); Mean Corpuscular Volume 90.1 fL (80-100); Monocytes Absolute Auto 1200 /uL (0-900); Monocytes Percent Auto 6.6 % (3-14); Neutrophils Absolute Auto 14600 /uL (1500-7000); Neutrophils Percent Auto 82.5 % (50-75); Platelet Count 729 X10^3/uL (150-400); Red Blood Cell Count 3.55 X10^6/uL (4.0-5.2); White Blood Cell Count 17.7 X10^3/uL (4.5-11.0)
[2021-04-27 05:09] LABS: Alanine Aminotransferase 46 IU/L (<35); Albumin 3.2 g/dL (3.5-5.0); Alkaline Phosphatase 97 U/L (38-126); Aspartate Aminotransferase 43 IU/L (14-36); BUN Creatinine Ratio 29.1 (6-22); Bilirubin Total 0.4 mg/dL (0.2-1.3); Blood Urea Nitrogen 16 mg/dL (7-17); Carbon Dioxide 28 mmol/L (22-32); Chloride 101 mmol/L (98-107); Estimated Glomerular Filt Rate > 60.0 mL/min (>60); Globulin 3.3 g/dL (1.7-4.1); Glucose 113 mg/dL (80-110); HEMOLYSIS < 15 (0-50); Potassium 3.7 mmol/L (3.4-5.1); Sodium 135 mmol/L (137-145); Total Protein 6.5 g/dL (6.3-8.2)
--- NOTE | 2021-04-27 08:39 | PM.PN.1 ---
Subjective Subjective Date Patient Seen: 04/27/21 Time Patient Seen: 08:39 Interval history: Patient seen in follow-up bilateral pneumonia atrial fibrillation. She converted. She is feeling much better. Feeling stronger. Energy level is better. No other significant change. Continuing to cough. Otherwise no new changes Exam Vital Signs (past 8 hours): - 04/27/21 04:00 Temperature 98.2 F Pulse Rate 72 Respiratory Rate 18 Blood Pressure 153/63 H Pulse Oximetry 92 Oxygen Delivery Method Room Air Oxygen Flow Rate 0 Narrative Exam Narrative: Alert elderly female much less fatigued in acute respiratory distress. HEENT exam mucous membranes moist. Neck supple without adenopathy. Lungs with occasional crackles left side but much clear. Extremities without cyanosis clubbing edema. Neurologic exam is normal. Objective Labs Result Diagrams: 04/27/21 04:45 04/27/21 04:45 Labs: Laboratory Results - last 24 hr 04/26/21 04/27/21 04/27/21 04:55 04:45 04:45 WBC 17.7 H RBC 3.55 L Hgb 10.9 L Hct 32.0 L MCV 90.1 MCH 30.8 MCHC 34.2 RDW 13.0 Plt Count 729 H Neut % (Auto) 82.5 H Lymph % (Auto) 9.1 L [place] % (Auto) 6.6 Eos % (Auto) 1.3 L Baso % (Auto) 0.5 Neut # (Auto) 23067 H Lymph # (Auto) 1600 [place] # (Auto) 1200 H Eos # (Auto) 200 Baso # (Auto) 100 Sodium 135 L Potassium 3.7 Chloride 101 Carbon Dioxide 28 BUN 16 Creatinine 0.55 Estimated GFR > 60.0 BUN/Creatinine Ratio 29.1 H Glucose 113 H Calcium 9.0 Total Bilirubin 0.4 AST 43 H ALT 46 H Alkaline Phosphatase 97 NT-Pro-B Natriuret Pep 2000 H Total Protein 6.5 Albumin 3.2 L Globulin 3.3 Albumin/Globulin Ratio 1.0 PFSH Medical History Cervical 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 Appears to be resolved. Suspect intermittent. Will probably need anticoagulation will discuss with vocational guidance counselor today. Pneumonia. Bilateral. Improved. White count quite not where I want it. We discussed this. She is otherwise seems to be clinically well. We will mobilize today. Will continue on IV antibiotics today will discontinue tomorrow switch to oral and if stable discharge home on Friday. Patient understands to call change. Dehydration. Resolved. Discontinue IV therapy. History of TIA. Will continue aspirin. Probably will need anticoagulation. Will proceed from there. Hypertension. Continued elevated. Will restart Norvasc and re-evaluate over the next 24 hours. Hyperlipidemia. Will continue statin. DVT prophylaxis on Lovenox. GI prophylaxis should be low risk. Code status. Desires DNR. Disposition. Overall doing extremely well. No major issues. Plan will be hopefully home in 48 hours. Time Spent With Patient Critical Care time: I spent a total of [] minutes of critical care time on this patient's care today; this time is exclusive of procedural time.
[2021-04-27] MEDS: ENOXAPARIN 40 MG/0.4 ML SYRINGE SUBCUT (09:17)
[2021-04-27] MEDS: cefTRIAXone 1,000 MG in SODIUM CHLORIDE 0.9% 100 ML 200 ML IV (09:17)
[2021-04-27] MEDS: AZITHROMYCIN 500 MG in DEXTROSE 5% IN WATER 250 ML IV (09:17)
[2021-04-27] MEDS: BENZONATATE 100 MG CAPSULE PO (09:17)
[2021-04-27] MEDS: ASPIRIN EC 81 MG TABLET PO (09:18)
[2021-04-27] MEDS: AMLODIPINE 5 MG TABLET 10 MG PO (09:18)
[2021-04-27] MEDS: lisinopriL 20 MG TABLET 40 MG PO (09:18)
[2021-04-27] MEDS: ATORVASTATIN 20 MG TABLET 10 MG PO (09:19)
--- NOTE | 2021-04-27 09:35 | PT.IIE ---
Current Diagnoses Unspecified bacterial pneumonia (04/25/21) Medical History (Last Reviewed 04/25/21 @ 21:32 by Dima Anders MD) Cervical spondylosis with radiculopathy Herniated nucleus pulposus with myelopathy, thoracic Physical Therapy Inpatient Evaluation/Re-Eval M1 PT/OT-IP Prior Functional Status Start: 04/27/21 10:46 Freq: NEEDED Status: Active Protocol: Document 04/27/21 09:35 AB (Rec: 04/27/21 10:57 AB [email or web address]) Medical Review Prior Functional Status Medical History Reviewed Yes Communication able to make needs known Mobility and Gait pt stated that she is independent with all mobilities and ambulation without AD Social History Household Members spouse Living Arrangements House Number of Floors (Floors) One Floor Number of Stairs To Enter/Railing? 1 step to enter Home Environment High Toilet,Walk in Shower Home Equipment Straight Cane Additional Social History Comment pt stated that her daugther will stay with her to assist her on d/c M2 PT-IP Current Condition Start: 04/27/21 10:46 Freq: NEEDED Status: Active Protocol: Document 04/27/21 09:35 AB (Rec: 04/27/21 10:57 AB [id number]) Physical Therapy Current Condition Current Condition Evaluation Date 04/27/21 Treatment Diagnosis PNA; generalized weakness Onset Date 04/25/21 M3 PT-IP Subjective Start: 04/27/21 10:46 Freq: NEEDED Status: Active Protocol: Document 04/27/21 09:35 AB (Rec: 04/27/21 10:57 AB [email or web address]) Subjective Physical Therapy Visit Type Type Initial Evaluation Visit Start Time 09:35 Visit Stop Time 10:09 Total Visit Minutes 34 Number of DESIGN DRAFTSMAN Visits 0 Physical Therapy Visit Comments Patient Comments agreeable to do PT Therapy Pain Assessment Pain Present Pain Present Denied Pain M4 PT-IP Mobility and Gait Start: 04/27/21 10:46 Freq: NEEDED Status: Active Protocol: Document 04/27/21 09:35 AB (Rec: 04/27/21 10:57 AB [email or web address]) PT-Bed Mobility Assessment Supine to Sit Supine to Sit Standby Assistance PT-Transfer Assessment Sit to and From Stand Sit to and from Stand Contact Guard Assistance,1 Person Assistance,Use of Upper Extremities Equipment Transfer Assistive Device None,Gait Belt Orthotic/Prosthetic Devices or Brace: No Transfers Transfer Destination Chair Transfer Technique ambulated Transfer Ability Level of Assist Contact Guard Assistance,1 Person Assistance,Use of Upper Extremities Comments Mobility Comments BP in supine: 133/54. O2 sat at RA:94%. pt completed supine to sit SBA and able to sit on EOB SBA. O2 sat: 92% BP checked: 144/53. no c/o dizziness/lightheadedness. educated pt on deep breathing and pacing. completed sit to stand CGA and ambulated in room ~ 15 ft without AD. presents with slight confusion towards end of ambulation. instructed to sit on chair. O2 sat checked: 80%. cued for deep breathing. O2 sat increased to ~ 85% but took another minute to get up to 91 %. pt agreed to stay up on chair. call light and table placed within reach. informed nurse regarding pt's mobility and decrease O2 sat with activity. Gait Assessment Gait Gait Assistance Required: Contact Guard Assist,1 Person Assist Distance (Feet) 15 Able to Maintain Weight Bearing Status No During Gait Assistive Devices Assistive Device None,Gait Belt Orthotic/Prosthetic Devices or Brace: No Factors Limiting Gait Function Factors Limiting Gait Function Decreased Activity Tolerance, Poor Safety Awareness, Respiratory Distress Comments Gait Comments pls refer to mobility section for details PT-Balance Assessment Sitting Balance and Reactions Static Sitting Balance Ability Normal Dynamic Sitting Balance Ability Good Standing Balance and Reactions Static Standing Balance Ability Good Dynamic Standing Balance Ability Fair Device Used without AD M5 PT-IP Objective Assessments Start: 04/27/21 10:46 Freq: NEEDED Status: Active Protocol: Document 04/27/21 09:35 AB (Rec: 04/27/21 10:57 AB [email or web address]) Orientation Orientation/Cognition Level of Alertness Alert Orientation Name Language Function Ability No Deficits Noted Memory Description No Deficits Noted Strength Lower Extremity Strength Assessment Within Functional Limits Sensation Assessment Sensation Gross Sensation WNL Muscle Tone Muscle Tone WNL Yes M6 PT-IP Treatment Start: 04/27/21 10:46 Freq: NEEDED Status: Active Protocol: Document 04/27/21 09:35 AB (Rec: 04/27/21 10:57 AB [email or web address]) Physical Therapy Treatment Education Education Provided Safety M7 PT-IP Assessment and Plan Start: 04/27/21 10:46 Freq: NEEDED Status: Active Protocol: Document 04/27/21 09:35 AB (Rec: 04/27/21 10:57 [email or web address]) PT Summary Assessment and Plan Potential Rehabilitation Potential Good Status of Condition at Evaluation Evolving Summary Impairments Pain,ROM,Strength,Balance, Coordination,Sensation,Tone, Cognition,Bed Mobility, Transfers,Gait,Activity Tolerance Assessment Summary pt requiring CGA with mobility and ambulation without AD but had decrease activity tolerance with decrease in O2 sat to ~ 80% after 15 ft of ambulation and presents with slight confusion towards end of ambulation. will continue to assess progress. pt plans to go home and will have her daughter to assist her at home . Goals Bed Mobility Goal Independent Transfer Goal Independent Gait Goal Independent Gait Distance 200 Other Goals up/down 1 step SBA Days to Meet Goals 10 Frequency of Treatment Frequency Of Treatment Once a Day Treatment Plan Physical Therapy Treatment Plan Bed Mobility Training,Transfer Training,Gait Training, Therapeutic Exercise,Balance Retraining,Discharge Planning, Hot or Cold Pack,Neuromuscular Re-ed,Coordination Retraining ,Manual Therapy Precautions Other Precautions O2 sat Recommendations To Nursing Amount of Assist Needed 1 Person Assist Discharge Recommendations PT Discharge Recommendations Home with Assistance,Home Health Transportation Needs at Discharge Private Vehicle
--- NOTE | 2021-04-27 15:16 | CM.IDA ---
Initial DCP Assessment Note Pt is an 85 yo female, resident of [place], arrives w/shortness of breath and sent over after an appt w/radiology who identified bilateral pneumonia. Patient expected to be clinically stable over the next 24-48 hrs Discussed patient w/PT Diane who explained patient required CGA with mobility w/o AD but had decreased activity tolerance d/t decrease in O2 sat w/this movement. Patient plans to return home once medically cleared w/assist from her dtr PCP: Dima Anders Payer: [facility]/[employer] Reviewed chart, met w/patient this afternoon to introduced role and review DCP. 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 Patient is very active, does work around their home daily, states she understands she will need to slow down upon DC home, states her dtr will be arriving Friday to assist she and spouse Plan: DC home w/family expected when medically cleared, do not anticipate DC needs but will remain available in case any DC needs or concerns arise Hopefully will be able to wean off O2 before return home JESUS Alicia Discharge Planning/Care Management CM Discharge Assessment Start: 04/27/21 15:11 Freq: Status: Active Protocol: Document 04/27/21 15:11 ARELIS (Rec: 04/27/21 15:16 ARELIS [id number]) Discharge Planning Assessment Assigned [employer] JESUS Tellez DPOA/Assigned Designee Name Hudson Bernal, spouse Contact Information [phone] Advance Directives? Yes Advance Directives on File No History Provided By Patient,Medical Record Prior Living Arrangements House Household Members spouse Type of transporation used prior to Drives own vehicle admit Independent with ADL's Yes Is patient alert and oriented? Yes Barriers to Discharge No Discharge Plan Home Transportation Arrangement Family Referrals Initiated None needed
[2021-04-28] VITALS (9 sets, daily range): BP systolic 122–147; BP diastolic 53–68; PULSE 62–93; RESP 14–18; TEMP 36.6–36.9; O2SAT 93–98
--- NOTE | 2021-04-28 03:47 | PC.NURSE ---
0340: Pt converted to rate-controlled afib from SA/SR. No adverse effects noted. Pt resting in bed with eyes closed.
[2021-04-28 06:54] LABS: Add Manual Diff / Slide Review NO; Basophils Absolute Auto 100 /uL (0-100); Basophils Percent Auto 0.8 % (0-2); Eosinophils Absolute Auto 500 /uL (0-450); Eosinophils Percent Auto 2.8 % (2-4); Hematocrit 29.1 % (36-46); Hemoglobin 10.1 g/dL (12.0-16.0); Lymphocytes Absolute Auto 1500 /uL (1100-4500); Lymphocytes Percent Auto 9.1 % (25-40); Mean Corpuscular HGB Conc 34.5 % (30-36); Mean Corpuscular Volume 89.9 fL (80-100); Monocytes Absolute Auto 1200 /uL (0-900); Monocytes Percent Auto 7.5 % (3-14); Neutrophils Absolute Auto 12800 /uL (1500-7000); Neutrophils Percent Auto 79.8 % (50-75); Platelet Count 750 X10^3/uL (150-400); Red Blood Cell Count 3.24 X10^6/uL (4.0-5.2); White Blood Cell Count 16.1 X10^3/uL (4.5-11.0)
[2021-04-28 07:03] LABS: Alanine Aminotransferase 44 IU/L (<35); Alkaline Phosphatase 85 U/L (38-126); Aspartate Aminotransferase 36 IU/L (14-36); BUN Creatinine Ratio 30.2 (6-22); Bilirubin Total 0.4 mg/dL (0.2-1.3); Blood Urea Nitrogen 16 mg/dL (7-17); Calcium 8.8 mg/dL (8.4-10.2); Carbon Dioxide 27 mmol/L (22-32); Chloride 104 mmol/L (98-107); Estimated Glomerular Filt Rate > 60.0 mL/min (>60); Glucose 101 mg/dL (80-110); HEMOLYSIS < 15 (0-50); Potassium 3.6 mmol/L (3.4-5.1); Sodium 136 mmol/L (137-145)
--- NOTE | 2021-04-28 09:16 | DI.RAD.S_ITS ---
PROCEDURE: XR CHEST 2V INDICATIONS: pneumonia TECHNIQUE: 2 views of the chest were acquired. COMPARISON: [facility], CR, XR CHEST 1V, 11/06/2020, 9:18. [facility], CR, XR CHEST 2V, 04/25/2021, 8:25. FINDINGS: Surgical changes and devices: None. Lungs and pleura: Stable multifocal bilateral pneumonia. No pleural effusions or pneumothorax. Mediastinum: Mediastinal contours are normal. Heart size is normal. Bones and chest wall: No suspicious bony abnormalities. Age-appropriate bony degenerative changes are seen. Accentuated thoracic kyphosis is seen. Soft tissues appear unremarkable. IMPRESSION: Stable bilateral multifocal pneumonia can be seen. Dictated by: Avery Parks M.D. on 04/28/2021 at 9:03 Approved by: Avery Parks M.D. on 04/28/2021 at 9:04
--- NOTE | 2021-04-28 09:23 | P.PN_ITS ---
Subjective Subjective Date Patient Seen: 04/28/21 Time Patient Seen: 09:23 Interval history: Patient overall is feeling slightly better today just sore from lying in bed. Her cough seems better. She is not having any shortness of breath. She was up ambulating a little bit yesterday. No other significant change. Exam Vital Signs (past 8 hours): - 04/28/21 05:00 Temperature 98.5 F Pulse Rate 76 Respiratory Rate 16 Blood Pressure 143/68 H Pulse Oximetry 95 Oxygen Delivery Method Room Air Oxygen Flow Rate 0 Narrative Exam Narrative: Alert elderly female sitting in chair in no acute distress. Lungs crackles in the right upper lung field. She has some air popping a few crackles on the right chest anterior R. Heart irregular no murmurs clicks or gallops. Abdomen is benign. Extremities without cyanosis clubbing edema. Objective Labs Result Diagrams: 04/28/21 05:47 04/28/21 05:47 Labs: Laboratory Results - last 24 hr 04/28/21 04/28/21 05:47 05:47 WBC 16.1 H RBC 3.24 L Hgb 10.1 L Hct 29.1 L MCV 89.9 MCH 31.0 MCHC 34.5 RDW 13.0 Plt Count 750 H Neut % (Auto) 79.8 H Lymph % (Auto) 9.1 L [place] % (Auto) 7.5 Eos % (Auto) 2.8 Baso % (Auto) 0.8 Neut # (Auto) 65836 H Lymph # (Auto) 1500 [place] # (Auto) 1200 H Eos # (Auto) 500 H Baso # (Auto) 100 Sodium 136 L Potassium 3.6 Chloride 104 Carbon Dioxide 27 BUN 16 Creatinine 0.53 Estimated GFR > 60.0 BUN/Creatinine Ratio 30.2 H Glucose 101 Calcium 8.8 Total Bilirubin 0.4 AST 36 ALT 44 H Alkaline Phosphatase 85 Total Protein 6.0 L Albumin 3.0 L Globulin 3.0 Albumin/Globulin Ratio 1.0 PFSH Medical History 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 Patient continues to be in AFib has re introduced from sinus. I suspect this may be an intermittent issue and due to her history of TIA in the past will place on anticoagulation. We discussed this. She understands. Questions answered. Question is whether not we need to do some rate control. Her highest rate has been in the 90s but has not been ambulating much. At this point I will start her on low-dose beta-carmen and see how she does. Community-acquired pneumonia bilaterally. Clinically better but white count is slowly coming down. I suspect were doing better I am going to repeat her chest x-ray. Were going to switch to orals today and recheck tomorrow if stable probable discharge at that time. Cultures have all been negative at this point. Dehydration. Resolved. History of TIA. Will discontinue aspirin and start anticoagulation. She understands reasoning. Hypertension. Still mildly elevated. Will see what additional metoprolol does not follow. Hyperlipidemia will continue statin. DVT prophylaxis will discontinue Lovenox now on Eliquis. GI prophylaxis should be low risk no change Code status DNR Disposition. Will see how she feels how she does I would like to ambulate or more today. Will see how that goes. If stable hopefully will be home tomorrow. 40 minute spent with patient discussing change in medication and orders in documenting Time Spent With Patient Critical Care time: I spent a total of [] minutes of critical care time on this patient's care today; this time is exclusive of procedural time.
[2021-04-28] MEDS: ENOXAPARIN 40 MG/0.4 ML SYRINGE SUBCUT (09:25)
[2021-04-28] MEDS: AMLODIPINE 5 MG TABLET 10 MG PO (09:26)
[2021-04-28] MEDS: lisinopriL 20 MG TABLET 40 MG PO (09:26)
[2021-04-28] MEDS: ATORVASTATIN 20 MG TABLET 10 MG PO (09:26)
[2021-04-28] MEDS: BENZONATATE 100 MG CAPSULE PO (09:30)
--- NOTE | 2021-04-28 09:40 | PT.IPTN ---
Current Diagnoses Unspecified bacterial pneumonia (04/25/21) Physical Therapy Treatment Note M2 PT-IP Current Condition Start: 04/27/21 10:46 Freq: NEEDED Status: Active Protocol: Document 04/27/21 09:35 AB (Rec: 04/27/21 10:57 AB [id number]) Physical Therapy Current Condition Current Condition Evaluation Date 04/27/21 Treatment Diagnosis PNA; generalized weakness Onset Date 04/25/21 M3 PT-IP Subjective Start: 04/27/21 10:46 Freq: NEEDED Status: Active Protocol: Document 04/28/21 09:40 AB (Rec: 04/28/21 12:00 AB [id number]) Subjective Physical Therapy Visit Type Type Treatment Note Visit Start Time 09:40 Visit Stop Time 10:06 Total Visit Minutes 26 Number of ABRASIVE GRINDER Visits 0 Therapy Pain Assessment Pain Present Pain Present Denied Pain M4 PT-IP Mobility and Gait Start: 04/27/21 10:46 Freq: NEEDED Status: Active Protocol: Document 04/28/21 09:40 AB (Rec: 04/28/21 12:00 AB [id number]) PT-Transfer Assessment Sit to and From Stand Sit to and from Stand Standby Assistance Equipment Transfer Assistive Device None,Gait Belt Orthotic/Prosthetic Devices or Brace: No Comments Mobility Comments pt sitting on chair. agreed to do PT. O2 sat ar RA 96%. BP: 134/79. completed sit to stand SBA and ambulated in room withtout AD CGA. cued for deep breathing in between tasks. pt sat on chair to rest. O2 sat checked: 85%. cued for deep breathing. O2 sat increased to ~ 90% after 30 sec. pt rested. agreed to ambulate again and completed another 40 ft without AD CGA. cued for deep breathing in between walks. O2 sat at end of ambulation: 87%. pt rested again. pt agreed to do stair training. Pt has 1 step to enter her house. Stair climbing x 4 sets. completed up/down step stool without AD initially requiring min A and cues. repeated again and completed with CGA. pt sat back on chair. positioned. call light and table placed within reach. Gait Assessment Gait Gait Assistance Required: Contact Guard Assist Distance (Feet) 40 Able to Maintain Weight Bearing Status Yes During Gait Assistive Devices Assistive Device None,Gait Belt Orthotic/Prosthetic Devices or Brace: Yes Gait Deviations General Gait Pattern Antalgic,Decreased Stride Length,Decreased Feet Clearance Factors Limiting Gait Function Factors Limiting Gait Function Decreased Activity Tolerance, Decreased Strength,Poor Balance,Poor Safety Awareness, Respiratory Distress Stair Climbing Assessment Evaluation Level of Assist On Stairs Contact Guard Assistance, Minimal Assistance Devices Stair Climbing Assistive Devices None Technique/Endurance Stair Climbing Direction Ascend and Descend Stair Climbing Technique Step to Step Number of Steps Climbed 1 Stair Climbing Set # Repetitions (reps) 4 M5 PT-IP Objective Assessments Start: 04/27/21 10:46 Freq: NEEDED Status: Active Protocol: Document 04/27/21 09:35 AB (Rec: 04/27/21 10:57 AB [id number]) Orientation Orientation/Cognition Level of Alertness Alert Orientation Name Language Function Ability No Deficits Noted Memory Description No Deficits Noted Strength Lower Extremity Strength Assessment Within Functional Limits Sensation Assessment Sensation Gross Sensation WNL Muscle Tone Muscle Tone WNL Yes M6 PT-IP Treatment Start: 04/27/21 10:46 Freq: NEEDED Status: Active Protocol: Document 04/28/21 09:40 AB (Rec: 04/28/21 12:00 AB [id number]) Physical Therapy Treatment Education Education Provided Safety M7 PT-IP Assessment and Plan Start: 04/27/21 10:46 Freq: NEEDED Status: Active Protocol: Document 04/28/21 09:40 AB (Rec: 04/28/21 12:00 AB [id number]) PT Summary Assessment and Plan Potential Rehabilitation Potential Good Summary Impairments Pain,ROM,Strength,Balance, Coordination,Sensation,Tone, Cognition,Bed Mobility, Transfers,Gait,Activity Tolerance Progress Towards Goals Slow Progress due to Activity Tolerance Assessment Summary pt is improving slowly with mobility but continues to have decrease O2 sat with activity . O2 sat after ambulation ~ 85-87%. pt plans to go home and her daugher will come in this friday to stay and assist her. pt will benefit from HHPT. Goals Bed Mobility Goal Independent Transfer Goal Independent Gait Goal Independent Gait Distance 200 Other Goals up/down 1 step SBA Days to Meet Goals 10 Frequency of Treatment Frequency Of Treatment Once a Day Treatment Plan Physical Therapy Treatment Plan Bed Mobility Training,Transfer Training,Gait Training, Therapeutic Exercise,Balance Retraining,Discharge Planning, Hot or Cold Pack,Neuromuscular Re-ed,Coordination Retraining ,Manual Therapy Precautions Other Precautions O2 sat Recommendations To Nursing Amount of Assist Needed 1 Person Assist Discharge Recommendations PT Discharge Recommendations Home with Assistance,Home Health Transportation Needs at Discharge Private Vehicle
[2021-04-28] MEDS: cefUROXime 250 MG TABLET 500 MG PO ×2 (10:36→20:02)
[2021-04-28] MEDS: METOPROLOL IR 25 MG TABLET PO ×2 (10:36→20:02)
[2021-04-28] MEDS: AZITHROMYCIN 250 MG TABLET PO (10:36)
[2021-04-28] MEDS: APIXABAN 5 MG TABLET PO (20:02)
[2021-04-29 05:10] VITALS: BP 141/87; PULSE 75; RESP 16; TEMP 37; O2SAT 98
[2021-04-29 05:38] LABS: Add Manual Diff / Slide Review NO; Basophils Absolute Auto 100 /uL (0-100); Basophils Percent Auto 0.5 % (0-2); Eosinophils Absolute Auto 500 /uL (0-450); Eosinophils Percent Auto 3.3 % (2-4); Hematocrit 32.4 % (36-46); Hemoglobin 11.2 g/dL (12.0-16.0); Lymphocytes Absolute Auto 2500 /uL (1100-4500); Lymphocytes Percent Auto 15.2 % (25-40); Mean Corpuscular HGB Conc 34.7 % (30-36); Mean Corpuscular Volume 89.2 fL (80-100); Monocytes Absolute Auto 1500 /uL (0-900); Monocytes Percent Auto 8.8 % (3-14); Neutrophils Absolute Auto 12100 /uL (1500-7000); Neutrophils Percent Auto 72.2 % (50-75); Platelet Count 817 X10^3/uL (150-400); Red Blood Cell Count 3.63 X10^6/uL (4.0-5.2); Red Cell Distribution Width 13.2 % (11.6-14.8); White Blood Cell Count 16.7 X10^3/uL (4.5-11.0)
[2021-04-29 05:45] LABS: Alanine Aminotransferase 39 IU/L (<35); Albumin 3.2 g/dL (3.5-5.0); Albumin Globulin Ratio 0.9 (1.0-2.8); Alkaline Phosphatase 86 U/L (38-126); Aspartate Aminotransferase 31 IU/L (14-36); BUN Creatinine Ratio 23.2 (6-22); Bilirubin Total 0.5 mg/dL (0.2-1.3); Blood Urea Nitrogen 13 mg/dL (7-17); Calcium 9.3 mg/dL (8.4-10.2); Carbon Dioxide 30 mmol/L (22-32); Chloride 105 mmol/L (98-107); Estimated Glomerular Filt Rate > 60.0 mL/min (>60); Globulin 3.4 g/dL (1.7-4.1); Glucose 97 mg/dL (80-110); HEMOLYSIS < 15 (0-50); Potassium 3.7 mmol/L (3.4-5.1); Sodium 137 mmol/L (137-145); Total Protein 6.6 g/dL (6.3-8.2)
[2021-04-29 05:53] LABS: Platelet Estimate Increased on smear; RBC Morphology Normal Morphology
[2021-04-29 07:22] VITALS: BP 128/64; PULSE 71; RESP 16; TEMP 36.3; O2SAT 95
[2021-04-29] MEDS: AMLODIPINE 5 MG TABLET 10 MG PO (08:16)
[2021-04-29 08:17] VITALS: BP 128/64; PULSE 71
[2021-04-29] MEDS: AZITHROMYCIN 250 MG TABLET PO (08:17)
[2021-04-29] MEDS: APIXABAN 5 MG TABLET PO (08:17)
[2021-04-29] MEDS: ATORVASTATIN 20 MG TABLET 10 MG PO (08:17)
[2021-04-29] MEDS: lisinopriL 20 MG TABLET 40 MG PO (08:17)
[2021-04-29] MEDS: METOPROLOL IR 25 MG TABLET PO (08:18)
--- NOTE | 2021-04-29 09:58 | PM.DS.1 ---
History of Present Illness History of Present Illness Date Patient Seen: 04/29/21 Time Patient Seen: 09:58 Date of Onset of Symptoms: 04/16/21 Chief complaint: sob, radiologist brought over Narrative: Patient is an 85-year-old female well known to me with history of multiple medical problems who presents with 1 week history of cough shortness of breath. Patient had not had any exposure to COVID. She had been in her usual state of health until she started getting fevers shortness of breath cough which was been productive. She has not had any headaches visual changes. No nausea or vomiting. She has not noticed any palpitations or other changes. She has not had any chest pain. She has been slowly getting more short of breath when she ambulates but has not had any other changes. I had seen her on Friday as a car visit and at that time she was comfortably breathing but having fevers to 102. COVID was obtained in 24 hours later was negative. At that point labs and chest x-ray were obtained. When she came to the x-ray she was increasingly short of breath and referred to the emergency room. She has not had any urinary changes no change in her bowel movements no appetite changes. She is fully vaccinated. Patient had a history of atrial fibrillation with admission back in November. Echo at that time showed enlarged left atrium but otherwise unremarkable with no significant valvular disease. She converted in very short period time. She has had monitoring in the past that did not show any other abnormality. Patient is an ex-smoker. But has no other changes. Has but otherwise been feeling in her usual health. Past medical history: TIA, insomnia, hypertension, hyperlipidemia, but no cardiac history. Past surgical history status post tonsillectomy and appendectomy Family history father 65 with cirrhosis alcohol abuse, mother Alzheimer's age 86 Social history but has been retired [employer]. 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 Education 12 years. One year of college. Discharge Providers Provider Date of admission: 04/25/21 10:45 Discharge Date: 04/29/21 Primary care physician: Dima Anders MD Consults: 04/25/21 09:01 Consult to Respiratory Therapy Evaluate & Treat Comment: Physician Instructions: Evaluate and treat 04/27/21 08:34 Consult to Physical Therapy Evaluate & Treat Comment: Physician Instructions: Evaluate and Treat Discharge provider: Dima Anders MD Summary Hospital Course Discharge Diagnosis: Community-acquired bilateral pneumonia Atrial fibrillation Dehydration History of TIA Hypertension Hyperlipidemia Hospital Course: Community-acquired pneumonia. Patient was admitted and placed on IV Rocephin and Zithromax. Patient white count initially went down to 16 and then hovered in that general area for the rest of her admission. Clinically she improved quite a bit. Completely resolved her cough. Her exam slowly improved to the point where she was on am not able to have any crackles heard on her exam. She did have an x-ray repeat which really showed no real improvement. But clinically she was doing very well. Cultures remain negative. She will be discharged to home on Ceftin only because she completed her Zithromax course. She will be on treatment for 7 days I will see her on Friday repeat a blood count at that time. We will do a follow-up x-ray and 6 weeks. Atrial fibrillation. Patient was found to be in atrial fibrillation on presentation. She really had been stable throughout the course of her admission she had no increase in heart rate due to the fact that she has had a previous TIA and previous episode of AFib in probably has had more issues than we recognize it was elected to put her on anticoagulation. Her echo showed no changes. She does have bilateral enlarged atrium. Due to the fact that she had some increase in heart rate with movement she was placed on metoprolol which also is being used for blood pressure. She was overall doing well and was stable on discharge will be followed as an outpatient. Patient understands medications%. Dehydration. Patient issue with moderately dehydrated and IV hydration was used over the 1st 48 hours and then discontinued she has done well sounds. History of TIA. No recurrence during admission she was stable throughout and will be followed. Will discontinue aspirins and start anticoagulation. Hyperlipidemia will start statin and follow. Status at Discharge Cognitive/behavioral status at discharge: oriented Functional status at discharge: independent ambulation Overall status at discharge: patient is progressing back to baseline Exam Vital Signs (past 8 hours): - 04/29/21 05:10 04/29/21 07:22 04/29/21 08:17 Temperature 98.6 F 97.3 F L Pulse Rate 75 71 71 Respiratory Rate 16 16 Blood Pressure 141/87 H 128/64 128/64 Pulse Oximetry 98 95 Oxygen Delivery Method Room Air Oxygen Flow Rate 0 Narrative Exam Narrative: Alert smiling female much less fatigued no acute distress. Lungs are clear. Heart regular rate and rhythm. Abdomen is soft positive bowel sounds nontender. Extremities without cyanosis clubbing edema. Neurologic exam is completely normal Objective Labs Result Diagrams: 04/29/21 05:17 04/29/21 05:17 Labs: Laboratory Results - last 24 hr 04/29/21 04/29/21 05:17 05:17 WBC 16.7 H RBC 3.63 L Hgb 11.2 L Hct 32.4 L MCV 89.2 MCH 31.0 MCHC 34.7 RDW 13.2 Plt Count 817 H Neut % (Auto) 72.2 Lymph % (Auto) 15.2 L [place] % (Auto) 8.8 Eos % (Auto) 3.3 Baso % (Auto) 0.5 Neut # (Auto) 04727 H Lymph # (Auto) 2500 [place] # (Auto) 1500 H Eos # (Auto) 500 H Baso # (Auto) 100 Platelet Estimate Increased on smear RBC Morphology Normal morphology Sodium 137 Potassium 3.7 Chloride 105 Carbon Dioxide 30 BUN 13 Creatinine 0.56 Estimated GFR > 60.0 BUN/Creatinine Ratio 23.2 H Glucose 97 Calcium 9.3 Total Bilirubin 0.5 AST 31 ALT 39 H Alkaline Phosphatase 86 Total Protein 6.6 Albumin 3.2 L Globulin 3.4 Albumin/Globulin Ratio 0.9 L COUNT INCLUDES THE [facility] Medical History Cervical spondylosis with radiculopathy Herniated nucleus pulposus with myelopathy, thoracic Surgical History History of appendectomy History of surgery on wrist Family History Mother Alzheimer disease Father Liver disease Social History household members: spouse Smoking Status: Former smoker Tobacco: How many years used: 20 alcohol intake: former substance use type: does not use Discharge Assessment & Plan Assessment and Plan Assessment: See above. Plan of Treatment: Discharge home today follow-up with me on Friday Discharge Plan Discharge Plan Patient Disposition: Home Discharge orders & Medications Prescriptions: New Eliquis 5 mg Tablet 5 mg PO BID Qty: 60 6RF cefuroxime axetil 250 mg Tablet 500 mg PO BID Qty: 14 0RF atorvastatin [Lipitor] 20 mg Tablet 10 mg PO DAILY Qty: 90 1RF metoprolol tartrate 25 mg Tablet 25 mg PO BID Qty: 60 3RF Continued aspirin 81 mg Tablet,Delayed Release (Dr/Ec) 81 mg PO DAILY Qty: 100 0RF simvastatin 20 mg tablet 20 mg PO QDAY 0RF lisinopril 40 mg tablet 40 mg PO QDAY 0RF amlodipine [Norvasc] 5 mg tablet 10 mg PO DAILY 0RF gabapentin 300 mg capsule 300 mg PO DAILY PRN (Reason: Pain (Scale Score 1-3)) 0RF tramadol 50 mg tablet 50 mg PO BID MDD 100mg PRN (Reason: pain) Qty: 30 1RF Follow up/Referrals: Dima Anders MD [Primary Care Provider] - 05/02/21 (call Friday for appointment) Discharge Health Status Multidrug resistant organism: No MDRO Diet/Activity/Treatments Diet: Diet as Tolerated Activity: as tolerated Skin/Wound/Dressing Care Report to your healthcare provider any signs of infection, such as:: chills, fever and night sweats Visit Report/Discharge Packet Instructions: DI for Pneumonia -- Adult, DI for Atrial Fibrillation, DI for High Blood Pressure, DI for Peripheral Neuropathy Discharge Data Primary Care Provider: Dima Anders
[2021-04-29] MEDS: cefUROXime 250 MG TABLET 500 MG PO (10:05)
--- NOTE | 2021-04-29 10:34 | CM.DPC ---
DCP Discharge Home Per MD, pt is medically stable to d/c home with family today and no identified barriers to discharge and would be agreeable to HH and signed F2F. then met bedside with pt and discussed d/c and HH and pt agreeable to discharge home but declines HH as she feels she has enough support from her Dtr and family. RN getting pt ready for d/c later today and SW provided copy of Medicare Message to pt but she is happy to be going home today. Plan: Patient to d/c home via family POV today and no further SW needs at this time. JESUS Matta
== END 2021-04-29 12:00 | disposition home or self-care (01) | DRG 195 ==
LOC: ED 10:44 → AC 10:45
PROVIDERS: Family Medicine; Admitting Provider Family Medicine; Emergency Provider Emergency Medicine; Family Provider Family Medicine; PCP Family Medicine; Referring Provider Emergency Medicine; Visit Provider Family Medicine
DX: J15.9 Unspecified bacterial pneumonia (principal); I48.0 Paroxysmal atrial fibrillation; E87.70 Fluid overload, unspecified; E86.0 Dehydration; I10 Essential (primary) hypertension; E78.5 Hyperlipidemia, unspecified; G62.9 Polyneuropathy, unspecified; Z86.73 Personal history of transient ischemic attack (TIA), and cerebral infarction without residual deficits; Z87.891 Personal history of nicotine dependence; Z66 Do not resuscitate; Z20.822 Contact with and (suspected) exposure to COVID-19; R05.9 Cough, unspecified
CPT/HCPCS: 36415; 71046; 80048; 80053; 81001; 82550; 83605; 83735; 83880; 84145; 84484; 85007; 85025; 87040; 87633; 93005; 93010; 93306; 94760; 96365; 96366; 96367; 97116; 97162; 99284; 99285; J0696; J1650; J1940

== ENCOUNTER → 2021-06-04 08:55 | Outpatient (CLI) | payer MEDICARE, OTHER, SELFPAY ==
[2021-04-25 15:29] VITALS: BMI 25.7
--- NOTE | 2021-06-04 | DI.RAD.S_ITS ---
PROCEDURE: XR CHEST 2V INDICATIONS: Pneumonia, unspecified organism TECHNIQUE: 2 views of the chest were acquired. COMPARISON: [facility], CR, XR CHEST 2V, 04/28/2021, 9:18. [facility], CR, XR CHEST 2V, 04/25/2021, 8:25. FINDINGS: Surgical changes and devices: None. Lungs and pleura: Moderate airspace opacity in the right lower lobe. This is similar to 04/28/2021. There is airspace opacity in the retrocardiac space seen on the lateral projection inferiorly which may be new compared to the prior CXR. The airspace opacities in the upper lobe seen on the prior CXRs are improved. No pleural effusions or pneumothorax. Mediastinum: Mediastinal contours are unchanged. Heart size is normal. Bones and chest wall: No suspicious bony abnormalities. Soft tissues appear unremarkable. IMPRESSION: Persistent pneumonia in the right lower lobe. Possible new retrocardiac airspace opacity seen on the lateral projection. Improved airspace opacities in the upper lobes. Dictated by: Dima Peres M.D. on 06/04/2021 at 9:51 Approved by: Dima Peres M.D. on 06/04/2021 at 9:54
[2021-06-04 10:08] LABS: Add Manual Diff / Slide Review NO; Basophils Absolute Auto 100 /uL (0-100); Basophils Percent Auto 0.9 % (0-2); Eosinophils Absolute Auto 300 /uL (0-450); Hematocrit 32.4 % (36-46); Hemoglobin 10.8 g/dL (12.0-16.0); Lymphocytes Absolute Auto 1700 /uL (1100-4500); Mean Corpuscular HGB Conc 33.2 % (30-36); Mean Corpuscular Hemoglobin 29.5 PG (26-34); Mean Corpuscular Volume 88.8 fL (80-100); Monocytes Absolute Auto 1700 /uL (0-900); Monocytes Percent Auto 12.1 % (3-14); Neutrophils Absolute Auto 10100 /uL (1500-7000); Platelet Count 512 X10^3/uL (150-400); Red Blood Cell Count 3.64 X10^6/uL (4.0-5.2); Red Cell Distribution Width 14.6 % (11.6-14.8); White Blood Cell Count 13.8 X10^3/uL (4.5-11.0)
[2021-06-04 10:24] LABS: Alanine Aminotransferase 19 IU/L (<35); Albumin 4.2 g/dL (3.5-5.0); Albumin Globulin Ratio 1.1 (1.0-2.8); Alkaline Phosphatase 79 U/L (38-126); Aspartate Aminotransferase 26 IU/L (14-36); BUN Creatinine Ratio 21.4 (6-22); Bilirubin Total 1.2 mg/dL (0.2-1.3); Blood Urea Nitrogen 12 mg/dL (7-17); Calcium 9.6 mg/dL (8.4-10.2); Carbon Dioxide 25 mmol/L (22-32); Chloride 101 mmol/L (98-107); Estimated Glomerular Filt Rate > 60.0 mL/min (>60); Globulin 3.7 g/dL (1.7-4.1); Glucose 116 mg/dL (80-110); HEMOLYSIS < 15 (0-50); Potassium 3.6 mmol/L (3.4-5.1); Sodium 137 mmol/L (137-145); Total Protein 7.9 g/dL (6.3-8.2)
== END ==
PROVIDERS: Family Provider Family Medicine; PCP Family Medicine; Referring Provider Family Medicine; Visit Provider Family Medicine
DX: J18.9 Pneumonia, unspecified organism (principal); I48.91 Unspecified atrial fibrillation
CPT/HCPCS: 36415; 71046; 80053; 85025

== ENCOUNTER → 2021-06-05 10:35 | Outpatient (CLI) | payer MEDICARE, OTHER, SELFPAY ==
[2021-04-25 15:29] VITALS: BMI 25.7
[2021-06-05 12:15] LABS: Add Manual Diff / Slide Review NO; Basophils Absolute Auto 0 /uL (0-100); Basophils Percent Auto 0.3 % (0-2); Eosinophils Absolute Auto 400 /uL (0-450); Eosinophils Percent Auto 3.1 % (2-4); Hematocrit 31.8 % (36-46); Hemoglobin 10.7 g/dL (12.0-16.0); Lymphocytes Absolute Auto 1900 /uL (1100-4500); Lymphocytes Percent Auto 17.3 % (25-40); Mean Corpuscular HGB Conc 33.6 % (30-36); Mean Corpuscular Hemoglobin 29.8 PG (26-34); Mean Corpuscular Volume 88.6 fL (80-100); Monocytes Absolute Auto 1100 /uL (0-900); Monocytes Percent Auto 9.8 % (3-14); Neutrophils Absolute Auto 7800 /uL (1500-7000); Neutrophils Percent Auto 69.5 % (50-75); Platelet Count 575 X10^3/uL (150-400); Red Blood Cell Count 3.58 X10^6/uL (4.0-5.2); Red Cell Distribution Width 14.4 % (11.6-14.8); White Blood Cell Count 11.2 X10^3/uL (4.5-11.0)
[2021-06-05 12:37] LABS: Erythrocyte Sedimentation Rate 79 MM/HR (0-20)
[2021-06-05 13:19] LABS: NT-proBNP (BNP-Adult 18+) 475 pg/mL (<450)
[2021-06-05 13:36] LABS: C-Reactive Protein Quant 11.8 mg/dL (<1.0)
== END ==
PROVIDERS: Family Provider Family Medicine; PCP Family Medicine; Referring Provider Family Medicine; Visit Provider Family Medicine
DX: I48.91 Unspecified atrial fibrillation (principal); J18.9 Pneumonia, unspecified organism; R60.1 Generalized edema
CPT/HCPCS: 36415; 83880; 85025; 85651; 86140

== ENCOUNTER → 2021-06-12 12:52 | Outpatient (CLI) | payer MEDICARE, OTHER, SELFPAY ==
[2021-04-25 15:29] VITALS: BMI 25.7
--- NOTE | 2021-06-12 | DI.CT.S_ITS ---
PROCEDURE: CT CHEST W CON INDICATIONS: Pneumonia, unspecified organism TECHNIQUE: After the administration of intravenous contrast, 5 mm thick sections acquired from the pulmonary apices to the posterior costophrenic angles. 1 mm axial lung, 5 mm thick coronal and sagittal reformats and 7 mm axial MIP were acquired. For radiation dose reduction, the following was used: automated exposure control, adjustment of mA and/or kV according to patient size. COMPARISON: [facility], CR, XR CHEST 2V, 06/04/2021, 9:14. FINDINGS: Image quality: Excellent. Lungs and pleura: No focal consolidations. No septal thickening or nodularity. There are mild ground-glass opacities predominantly involving the dependent portions of the bilateral lower lobes as well as the superior segment of the bilateral upper lobes. There is suggestion of minimal tree-in-bud opacities within this area of ground-glass opacities. No pleural effusions or pneumothorax. Central and peripheral airways are patent and normal in caliber. Bibasilar atelectasis. Mediastinum: Heart size is normal. No pericardial effusion. Coronary atherosclerotic vascular calcifications are noted. No mediastinal or hilar adenopathy by size criteria. Thoracic aorta and central pulmonary arteries are normal in size. There are scattered thoracic aortic atherosclerotic calcifications. Esophagus is normal in caliber. No hiatal hernia. Bones and chest wall: No suspicious bony lesions. No acute vertebral body compression fractures. No axillary or supraclavicular adenopathy by size criteria. Thyroid gland is unremarkable . Abdomen: Incompletely imaged left renal hypodensity likely representing a cyst. Remainder of the visualized upper abdominal solid organs appear normal. Upper abdominal bowel loops are normal in caliber. IMPRESSION: 1. There are mild irregular ground-glass opacities predominantly in the dependent portions of the bilateral hemithoraces (posterior lower lobes bilaterally and superior segment of the bilateral upper lobes) with suggestion of minimal tree-in-bud opacities. Findings are possibly related to bronchopneumonia with atypical organism or viral etiology most likely. Other considerations include aspiration given the distribution. No focal consolidation seen. Recommend short interval follow-up CT in 3-6 months to document stability versus resolution. 2. Atherosclerotic vascular disease. Dictated by: Eliot Allred M.D. on 06/12/2021 at 16:18 Approved by: Eliot Allred M.D. on 06/12/2021 at 16:25
== END ==
PROVIDERS: Family Provider Family Medicine; PCP Family Medicine; Referring Provider Family Medicine; Visit Provider Family Medicine
DX: J18.9 Pneumonia, unspecified organism (principal); I70.0 Atherosclerosis of aorta; R53.83 Other fatigue
CPT/HCPCS: 71260; Q9967

== ENCOUNTER → 2021-10-15 07:04 | Outpatient (CLI) | payer MEDICARE, OTHER, SELFPAY ==
[2021-04-25 15:29] VITALS: BMI 25.7
--- NOTE | 2021-10-15 07:07 | DI.RAD.S_ITS ---
PROCEDURE: XR CERVICAL SPINE 4V OR 5V INDICATIONS: NECK PAIN TECHNIQUE: 5 views of the cervical spine acquired. COMPARISON: None. FINDINGS: Bones: No fractures or dislocations to the C7 level. Multilevel disc space narrowing and endplate osteophyte formation. Facet hypertrophy throughout the mid and lower cervical spine. Moderate foraminal stenosis at C3-C4, C4-C5, and C5-C6 bilaterally. Soft tissues: No prevertebral soft tissue swelling. IMPRESSION: 1. Multilevel degenerative disc and facet disease. 2. No acute fracture. No osseous lesion. If symptoms and/or clinical suspicion for pathology persist, further assessment with repeat, or advanced imaging (e.g., CT, MRI, or bone scan) may be helpful for further assessment. Dictated by: Kel Millan M.D. on 10/15/2021 at 12:55 Approved by: Kel Millan M.D. on 10/15/2021 at 12:56
--- NOTE | 2021-10-15 07:07 | DI.RAD.S_ITS ---
PROCEDURE: XR SHOULDER RT MIN 2V INDICATIONS: RIGHT SHOULDER PAIN TECHNIQUE: 3 views of the shoulder were acquired. COMPARISON: [facility], , SHOULDER MINIMUM 2VIEW RIGHT, 05/09/2006, 9:59. FINDINGS: Bones: No fractures or dislocations. No suspicious bony lesions. Visualized ribs appear intact. Moderate-severe AC joint degenerative changes, not substantially changed. Soft tissues: No suspicious soft tissue calcifications. IMPRESSION: 1. No acute osseous abnormality. 2. Degenerative changes of the acromioclavicular joint, not substantially changed. Dictated by: Dawood Bass M.D. on 10/15/2021 at 10:07 Approved by: Dawood Bass M.D. on 10/15/2021 at 10:12
== END ==
PROVIDERS: Family Provider Family Medicine; PCP Family Medicine; Referring Provider Physical Medicine & Rehabilitation; Visit Provider Physical Medicine & Rehabilitation
DX: M47.22 Other spondylosis with radiculopathy, cervical region (principal); M50.30 Other cervical disc degeneration, unspecified cervical region; M51.04 Intervertebral disc disorders with myelopathy, thoracic region; M47.814 Spondylosis without myelopathy or radiculopathy, thoracic region; M25.511 Pain in right shoulder
CPT/HCPCS: 72050; 73030; 99214

== ENCOUNTER 2021-12-07 12:19 | Emergency (ER) | payer MEDICARE, OTHER, SELFPAY ==
[2021-04-25 15:29] VITALS: BMI 25.7
[2021-12-07 12:22] VITALS: BP 155/67; PULSE 92; RESP 17; TEMP 37.1; O2SAT 97; BMI 25.0
--- NOTE | 2021-12-07 12:25 | DI.RAD.S_ITS ---
PROCEDURE: XR CHEST 1V INDICATIONS: suspected sepsis TECHNIQUE: One view of the chest was acquired. COMPARISON: [facility], CR, XR CHEST 2V, 06/04/2021, 9:14. FINDINGS: Surgical changes and devices: None. Lungs and pleura: Subtle airspace opacities are present at the right lung base. The left lung is clear. No pleural effusion or pneumothorax. Mediastinum: Mediastinal contours appear normal. Heart size is normal. Bones and chest wall: No suspicious bony lesions. Overlying soft tissues appear unremarkable. IMPRESSION: 1. Right basilar pulmonary radiopacities suspicious for aspiration/infection. Short interval followup is recommended with resolution of the patient's symptoms to ensure there is no underlying pulmonary pathology. Dictated by: Mattie Carranza M.D. on 12/07/2021 at 12:46 Approved by: Mattie Carranza M.D. on 12/07/2021 at 12:47
[2021-12-07 12:46] LABS: COVID19 -Nasal RAPID Negative (Negative)
--- NOTE | 2021-12-07 12:56 | PC.NURSE ---
Pt reports chills, loss of appetite, increased her fluid intake, and frequency. Pt was hospitalized recently for pneumonia, this episode feels similar.
[2021-12-07 13:00] LABS: Add Manual Diff / Slide Review NO; Basophils Absolute Auto 0 /uL (0-100); Basophils Percent Auto 0.2 % (0-2); Eosinophils Absolute Auto 0 /uL (0-450); Eosinophils Percent Auto 0.1 % (2-4); Hemoglobin 14.1 g/dL (12.0-16.0); Lymphocytes Absolute Auto 1300 /uL (1100-4500); Mean Corpuscular HGB Conc 33.5 % (30-36); Mean Corpuscular Volume 89.6 fL (80-100); Monocytes Absolute Auto 1900 /uL (0-900); Monocytes Percent Auto 8.8 % (3-14); Neutrophils Absolute Auto 18200 /uL (1500-7000); Neutrophils Percent Auto 84.9 % (50-75); Platelet Count 306 X10^3/uL (150-400); Red Blood Cell Count 4.68 X10^6/uL (4.0-5.2); Red Cell Distribution Width 13.7 % (11.6-14.8); White Blood Cell Count 21.5 X10^3/uL (4.5-11.0)
[2021-12-07 13:05] VITALS: PULSE 70; RESP 33; O2SAT 98
[2021-12-07 13:06] LABS: INR 1.6 (0.9-1.3)
[2021-12-07 13:09] LABS: PTT Partial Thromboplastin Tim 30 SECONDS (26-36)
[2021-12-07 13:11] LABS: Alanine Aminotransferase 16 IU/L (<35); Albumin 4.4 g/dL (3.5-5.0); Albumin Globulin Ratio 1.1 (1.0-2.8); Alkaline Phosphatase 72 U/L (38-126); Aspartate Aminotransferase 21 IU/L (14-36); BUN Creatinine Ratio 19.2 (6-22); Bilirubin Total 2.5 mg/dL (0.2-1.3); Blood Urea Nitrogen 14 mg/dL (7-17); Calcium 9.7 mg/dL (8.4-10.2); Carbon Dioxide 25 mmol/L (22-32); Chloride 103 mmol/L (98-107); Estimated Glomerular Filt Rate > 60 mL/min (>60); Globulin 3.9 g/dL (1.7-4.1); Glucose 179 mg/dL (80-110); HEMOLYSIS < 15 (0-50); Lipase 44 U/L (23-300); Potassium 3.9 mmol/L (3.4-5.1); Sodium 136 mmol/L (137-145); Total Protein 8.3 g/dL (6.3-8.2)
[2021-12-07 13:12] LABS: Lactate (Lactic Acid) 1.6 mmol/L (0.7-2.1)
[2021-12-07 13:27] LABS: Procalcitonin 0.12 ng/mL (<0.5)
[2021-12-07 13:30] VITALS: BP 145/64; PULSE 78; RESP 33; O2SAT 98
--- NOTE | 2021-12-07 13:32 | ED.GENADULT ---
HPI - General Adult General Chief complaint: Shortness of Breath/Dyspnea Stated complaint: Weakness/fever/shorthness of breath Time Seen by Provider: 12/07/21 13:05 Source: patient Mode of arrival: Ambulatory Related Data Home Medications Medication Instructions Recorded Confirmed lisinopril 40 mg tablet 40 mg PO QDAY 08/12/17 04/25/21 simvastatin 20 mg tablet 20 mg PO QDAY 08/12/17 04/25/21 gabapentin 300 mg capsule 300 mg PO DAILY PRN Pain (Scale 04/28/20 04/25/21 Score 1-3) amlodipine 5 mg tablet (Norvasc) 10 mg PO DAILY 04/25/21 04/26/21 Previous Rx's Medication Instructions Recorded apixaban 5 mg tablet (Eliquis) 5 mg PO BID #60 tabs 04/29/21 atorvastatin 20 mg tablet (Lipitor) 10 mg PO DAILY #90 tabs 04/29/21 metoprolol tartrate 25 mg tablet 25 mg PO BID #60 tabs 04/29/21 tramadol 50 mg tablet 50 mg PO BID PRN pain #30 tabs 10/15/21 azithromycin 250 mg tablet See Rx Instructions PO .COMPLEX #6 12/07/21 tabs Allergies Allergy/AdvReac Type Severity Reaction Status Date / Time No Known Drug Allergies Allergy Verified 11/06/20 10:48 Patient History Medical History (Updated 12/07/21 @ 13:49 by Derrick Maya DO) Cervical spondylosis with radiculopathy Herniated nucleus pulposus with myelopathy, thoracic Surgical History History of appendectomy History of surgery on wrist Family History Mother Alzheimer disease Father Liver disease Social History household members: spouse Smoking Status: Former smoker Tobacco: How many years used: 20 alcohol intake: former substance use type: does not use Smoking Status: Former smoker alcohol intake frequency: holidays/special occasions only Substance Use Type: does not use Exam Initial Vital Signs Initial Vital Signs: Vital Signs Temperature 98.7 F 12/07/21 12:22 Pulse Rate 92 H 12/07/21 12:22 Respiratory Rate 17 09/02/22 12:22 Blood Pressure 155/67 H 12/07/21 12:22 Pulse Oximetry 97 12/07/21 12:22 Oxygen Delivery Method 12/07/21 12:22 Course Orders Ordered: ED Orders 12/07/21 12:25 XR chest 1V Stat RT Consult Eval and Treat NOW 12/07/21 12:26 COVID19 -Nasal RAPID/Pre-Proc Stat 12/07/21 12:34 EKG-12 Lead Stat 12/07/21 12:50 Blood Culture Stat Complete Blood Count AUTO DIFF Stat Comprehensive Metabolic Panel Stat Lactate (Lactic Acid) Stat Lipase Stat Partial Thromboplastin Time Stat Procalcitonin Stat Prothrombin Time INR Stat Discontinued Medications Sodium Chloride (Normal Saline 0.9%) 1,000 mls @ 1,000 mls/hr IV BOLUS ONE Stop: 12/07/21 13:24 Vital Signs Vital signs: Vital Signs - 8 hr 12/07/21 12:22 Temperature 98.7 F Pulse Rate 92 H Respiratory Rate 17 Blood Pressure 155/67 H Pulse Oximetry 97 Oxygen Delivery Method Room Air Medical Decision Making Lab Data Result diagrams: 12/07/21 12:50 12/07/21 12:50 Labs: Lab Results 12/07/21 12/07/21 12/07/21 Range/Units 12:26 12:50 12:50 WBC 21.5 H (4.5-11.0) X10^3/uL RBC 4.68 (4.0-5.2) X10^6/uL Hgb 14.1 (12.0-16.0) g/dL Hct 42.0 (36-46) % MCV 89.6 (80-100) fL MCH 30.0 (26-34) PG MCHC 33.5 (30-36) % RDW 13.7 (11.6-14.8) % Plt Count 306 (150-400) X10^3/uL Neut % (Auto) 84.9 H (50-75) % Lymph % (Auto) 6.0 L (25-40) % [place] % (Auto) 8.8 (3-14) % Eos % (Auto) 0.1 L (2-4) % Baso % (Auto) 0.2 (0-2) % Neut # (Auto) 43983 H (3692-7988) /uL Lymph # (Auto) 1300 (3335-6042) /uL [place] # (Auto) 1900 H (0-900) /uL Eos # (Auto) 0 (0-450) /uL Baso # (Auto) 0 (0-100) /uL PT 18.0 H (10.1-12.7) SECONDS INR 1.6 H (0.9-1.3) APTT 30 (26-36) SECONDS Sodium (137-145) mmol/L Potassium (3.4-5.1) mmol/L Chloride (98-107) mmol/L Carbon Dioxide (22-32) mmol/L BUN (7-17) mg/dL Creatinine (0.52-1.04) mg/dL Estimated GFR (>60) mL/min BUN/Creatinine Ratio (6-22) Glucose (80-110) mg/dL Lactate (0.7-2.1) mmol/L Calcium (8.4-10.2) mg/dL Total Bilirubin (0.2-1.3) mg/dL AST (14-36) IU/L ALT (<35) IU/L Alkaline Phosphatase (38-126) U/L Total Protein (6.3-8.2) g/dL Albumin (3.5-5.0) g/dL Globulin (1.7-4.1) g/dL Albumin/Globulin Ratio (1.0-2.8) Lipase (23-300) U/L Procalcitonin (<0.5) ng/mL SARS-CoV-2 (PCR) Negative (Negative) 12/07/21 12/07/21 Range/Units 12:50 12:50 WBC (4.5-11.0) X10^3/uL RBC (4.0-5.2) X10^6/uL Hgb (12.0-16.0) g/dL Hct (36-46) % MCV (80-100) fL MCH (26-34) PG MCHC (30-36) % RDW (11.6-14.8) % Plt Count (150-400) X10^3/uL Neut % (Auto) (50-75) % Lymph % (Auto) (25-40) % [place] % (Auto) (3-14) % Eos % (Auto) (2-4) % Baso % (Auto) (0-2) % Neut # (Auto) (2804-0253) /uL Lymph # (Auto) (6811-4141) /uL [place] # (Auto) (0-900) /uL Eos # (Auto) (0-450) /uL Baso # (Auto) (0-100) /uL PT (10.1-12.7) SECONDS INR (0.9-1.3) APTT (26-36) SECONDS Sodium 136 L (137-145) mmol/L Potassium 3.9 (3.4-5.1) mmol/L Chloride 103 (98-107) mmol/L Carbon Dioxide 25 (22-32) mmol/L BUN 14 (7-17) mg/dL Creatinine 0.73 (0.52-1.04) mg/dL Estimated GFR > 60 (>60) mL/min BUN/Creatinine Ratio 19.2 (6-22) Glucose 179 H (80-110) mg/dL Lactate 1.6 (0.7-2.1) mmol/L Calcium 9.7 (8.4-10.2) mg/dL Total Bilirubin 2.5 H (0.2-1.3) mg/dL AST 21 (14-36) IU/L ALT 16 (<35) IU/L Alkaline Phosphatase 72 (38-126) U/L Total Protein 8.3 H (6.3-8.2) g/dL Albumin 4.4 (3.5-5.0) g/dL Globulin 3.9 (1.7-4.1) g/dL Albumin/Globulin Ratio 1.1 (1.0-2.8) Lipase 44 (23-300) U/L Procalcitonin 0.12 (<0.5) ng/mL SARS-CoV-2 (PCR) (Negative) Discharge Plan Departure Patient Disposition: Home Clinical Impression: Pneumonia Instructions: Pneumonia-Adult Activity Restrictions/Additional Instructions: Please take the antibiotics as directed. Continue the rest of your medications as directed. Return to the emergency department for any new or worsening symptoms. Prescriptions: New azithromycin 250 mg tablet See Rx Instructions .ROUTE .COMPLEX Qty: 6 0RF Rx Instructions: For 250 mg dose pack: take 500 mg today (day 1), then 250 mg for 4 days (days 2-5) No Action simvastatin 20 mg tablet 20 mg PO QDAY lisinopril 40 mg tablet 40 mg PO QDAY amlodipine [Norvasc] 5 mg tablet 10 mg PO DAILY Eliquis 5 mg Tablet 5 mg PO BID Qty: 60 6RF atorvastatin [Lipitor] 20 mg Tablet 10 mg PO DAILY Qty: 90 1RF metoprolol tartrate 25 mg Tablet 25 mg PO BID Qty: 60 3RF gabapentin 300 mg capsule 300 mg PO DAILY PRN (Reason: Pain (Scale Score 1-3)) tramadol 50 mg tablet 50 mg PO BID MDD 100mg PRN (Reason: pain) Qty: 30 2RF Referrals: Dima Anders MD [Primary Care Provider] -
== END 2021-12-07 13:56 | disposition home or self-care (01) ==
PROVIDERS: Emergency Provider Emergency Medicine; Family Provider Family Medicine; PCP Family Medicine
DX: J18.9 Pneumonia, unspecified organism (principal); Z20.822 Contact with and (suspected) exposure to COVID-19
CPT/HCPCS: 36415; 71045; 80053; 83605; 83690; 84145; 85025; 85610; 85730; 87040; 87635; 93005; 99284; C9803

== ENCOUNTER → 2021-12-14 10:03 | Outpatient (CLI) | payer MEDICARE, OTHER, SELFPAY ==
[2021-04-25 15:29] VITALS: BMI 25.7
--- NOTE | 2021-12-14 | DI.RAD.S_ITS ---
PROCEDURE: XR CHEST 2V INDICATIONS: Pneumonia, unspecified organism TECHNIQUE: 2 views of the chest were acquired. COMPARISON: [facility], CR, XR CHEST 1V, 12/07/2021, 12:26. [facility], CR, XR CHEST 2V, 06/04/2021, 9:14. FINDINGS: Surgical changes and devices: None. Lungs and pleura: No dense consolidation. Right basal opacity has slightly decreased. The right hemithorax appears more opacified than the left, possibly related to technique. There is a skin fold projecting over the right lateral chest. No pleural effusion. Lateral view is reassuring. Mediastinum: Borderline enlarged heart. Bones and chest wall: No suspicious bony abnormalities. Soft tissues appear unremarkable. IMPRESSION: No dense consolidation. Right basilar opacity has decreased. The right hemithorax appears more dense than the left, possibly related to technique. Continued imaging follow-up could be obtained for surveillance. Dictated by: Herbie Faust M.D. on 12/14/2021 at 12:04 Approved by: Herbie Faust M.D. on 12/14/2021 at 12:06
== END ==
PROVIDERS: Family Provider Family Medicine; PCP Family Medicine; Referring Provider Family Medicine; Visit Provider Family Medicine
DX: J18.9 Pneumonia, unspecified organism (principal)
CPT/HCPCS: 71046

== ENCOUNTER → 2022-02-20 12:21 | Outpatient (CLI) | payer MEDICARE, OTHER, SELFPAY ==
[2021-04-25 15:29] VITALS: BMI 25.7
--- NOTE | 2022-02-20 12:27 | DI.RAD.S_ITS ---
PROCEDURE: XR CHEST 2V INDICATIONS: CHEST TECHNIQUE: 2 views of the chest were acquired. COMPARISON: CT, CT CHEST W CON, 06/12/2021, 12:57. [facility], CR, XR CHEST 2V, 12/14/2021, 10:08. [facility], CR, XR CHEST 1V, 12/07/2021, 12:26. FINDINGS: Surgical changes and devices: None. Lungs and pleura: Left upper lobe pulmonary nodule measuring 0.5 cm is unchanged in the short-term interval. Minimal right basilar hazy opacity. No pleural effusions or pneumothorax. Mediastinum: Mediastinal contours are normal. Heart size is normal. Bones and chest wall: No suspicious bony abnormalities. Soft tissues appear unremarkable. IMPRESSION: Minimal right basilar hazy opacity. This could be residual pneumonia, scarring, or atelectasis. Dictated by: Dima Peres M.D. on 02/20/2022 at 19:34 Approved by: Dima Peres M.D. on 02/20/2022 at 19:39
== END ==
PROVIDERS: Family Provider Family Medicine; PCP Family Medicine; Referring Provider Family Medicine; Visit Provider Family Medicine
DX: J18.9 Pneumonia, unspecified organism (principal); R91.1 Solitary pulmonary nodule
CPT/HCPCS: 71046

== ENCOUNTER → 2022-04-09 12:36 | Outpatient (ROUT) | payer MEDICARE, OTHER, SELFPAY ==
[2021-04-25 15:29] VITALS: BMI 25.7
[2022-04-09 13:25] LABS: COVID-19 CEPHEID 4-PLEX PCR Negative (Negative); Influenza A - CEPHEID Flu A NEGATIVE (NEGATIVE); Influenza B - CEPHEID Flu B NEGATIVE (NEGATIVE); Respiratory Syncytial Virus Negative (Negative)
== END ==
PROVIDERS: Family Provider Family Medicine; PCP Family Medicine; Visit Provider Family Medicine
DX: R05.9 Cough, unspecified (principal)
CPT/HCPCS: 0241U

== ENCOUNTER → 2022-05-13 11:45 | Outpatient (CLI) | payer MEDICARE, OTHER, SELFPAY ==
[2021-04-25 15:29] VITALS: BMI 25.7
--- NOTE | 2022-05-13 11:47 | DI.RAD.S_ITS ---
PROCEDURE: XR THORACIC SPINE 2V INDICATIONS: dorsalgia, abdominal pain TECHNIQUE: 2 views of the thoracic spine were acquired. COMPARISON: [facility], CR, XR THORACIC SPINE 3V, 04/20/2020, 10:55. FINDINGS: Bones: There is leftward curvature of thoracic spine with apex at T8 level. [id number] kyphosis is also seen. Degenerative endplate changes are noted throughout thoracic spine. No fractures or dislocations. No suspicious bony lesions. 12 pairs of ribs are noted, and appear intact where visualized. Soft tissues: No paravertebral stripe thickening. IMPRESSION: Very mild leftward curvature of thoracic spine with apex at T8 level. Fbca-[id number] kyphosis with apex at T7-8 level. No acute compression fracture or spondylolisthesis. Degenerative disc disease throughout thoracic spine. Dictated by: Rush Cruz M.D. on 05/13/2022 at 14:39 Approved by: Rush Cruz M.D. on 05/13/2022 at 14:46
--- NOTE | 2022-05-13 11:47 | DI.RAD.S_ITS ---
PROCEDURE: XR LUMBAR SPINE 2-3V INDICATIONS: dorsalgia, abdominal pain TECHNIQUE: 3 views of the lumbar spine were acquired. COMPARISON: None. FINDINGS: Bones: 5 [id number] vertebrae are present. There is 6 millimeter anterolisthesis of L4 on L5. Degenerative endplate changes and loss of disc height throughout lumbar spine is seen most notably at L4-5 and L5-S1 levels. No vertebral body compression fractures. No suspicious bony lesions. Soft tissues: Overlying bowel gas pattern is normal. No suspicious soft tissue calcifications. IMPRESSION: Degenerative disc disease throughout lumbar spine as above. Grade 1 anterolisthesis of L4 on L5. No acute compression fracture. Dictated by: Rush Cruz M.D. on 05/13/2022 at 14:35 Approved by: Rush Cruz M.D. on 05/13/2022 at 14:39
--- NOTE | 2022-05-13 11:47 | DI.RAD.S_ITS ---
PROCEDURE: XR RIBS RT MIN 3V W CXR 1V INDICATIONS: dorsalgia, abdominal pain TECHNIQUE: 2 views of the right ribs were acquired, along with a single view chest. COMPARISON: None. FINDINGS: Surgical changes and devices: None. Bones and chest wall: No fractures or dislocations. No suspicious bony lesions. Overlying soft tissues appear unremarkable. Lungs and pleura: No pleural effusions or pneumothorax. Lungs appear enlarged. Mediastinum: Mediastinal contours appear normal. Heart size is normal. IMPRESSION: No gross displaced rib fracture. No acute cardiopulmonary pathology. Dictated by: Rush Cruz M.D. on 05/13/2022 at 14:46 Approved by: Rush Cruz M.D. on 05/13/2022 at 14:47
== END ==
PROVIDERS: Family Provider Family Medicine; PCP Family Medicine; Referring Provider Family Medicine; Visit Provider Family Medicine
DX: M51.34 Other intervertebral disc degeneration, thoracic region (principal); M40.204 Unspecified kyphosis, thoracic region; M51.36 Other intervertebral disc degeneration, lumbar region; M51.37 Other intervertebral disc degeneration, lumbosacral region; M43.16 Spondylolisthesis, lumbar region; R10.9 Unspecified abdominal pain; M54.9 Dorsalgia, unspecified
CPT/HCPCS: 71101; 72070; 72100

== ENCOUNTER → 2022-06-17 09:07 | Outpatient (CLI) | payer MEDICARE, OTHER, SELFPAY ==
[2021-04-25 15:29] VITALS: BMI 25.7
[2022-06-17 10:40] LABS: Cholesterol 177 mg/dL (140-199); HDL Cholesterol 58 mg/dL (40-60); LDL Cholesterol Calculated 105 mg/dL (<100); Triglycerides 71 mg/dL (35-150)
== END ==
PROVIDERS: Family Provider Family Medicine; PCP Family Medicine; Referring Provider Family Medicine; Visit Provider Family Medicine
DX: E78.5 Hyperlipidemia, unspecified (principal); G45.9 Transient cerebral ischemic attack, unspecified; I10 Essential (primary) hypertension
CPT/HCPCS: 36415; 80061

== ENCOUNTER → 2022-07-24 11:23 | Outpatient (CLI) | payer MEDICARE, OTHER, SELFPAY ==
[2021-04-25 15:29] VITALS: BMI 25.7
--- NOTE | 2022-07-24 11:28 | DI.RAD.S_ITS ---
PROCEDURE: XR CHEST 2V INDICATIONS: PNEUMONIA, UNSPECIFIED ORGANISM TECHNIQUE: 2 views of the chest were acquired. COMPARISON: [facility], CR, XR CHEST 2V, 02/20/2022, 12:36. [facility], CR, XR CHEST 2V, 12/14/2021, 10:08. FINDINGS: Surgical changes and devices: None. Lungs and pleura: Right lower lobe consolidation. Mediastinum: Mediastinal contours are normal. Heart size is normal. Bones and chest wall: No suspicious bony abnormalities. Soft tissues appear unremarkable. IMPRESSION: New right lower lobe consolidation, concerning for pneumonia. Dictated by: Noel Fuentes M.D. on 07/24/2022 at 12:39 Approved by: Noel Fuentes M.D. on 07/24/2022 at 12:40
== END ==
PROVIDERS: Family Provider Family Medicine; PCP Family Medicine; Referring Provider Family Medicine; Visit Provider Family Medicine
DX: J18.9 Pneumonia, unspecified organism (principal)
CPT/HCPCS: 71046

== ENCOUNTER → 2022-08-19 10:20 | Outpatient (CLI) | payer MEDICARE, OTHER, SELFPAY ==
[2021-04-25 15:29] VITALS: BMI 25.7
--- NOTE | 2022-08-19 | DI.RAD.S_ITS ---
PROCEDURE: XR CHEST 2V INDICATIONS: Pneumonia, unspecified organism TECHNIQUE: 2 views of the chest were acquired. COMPARISON: [facility], CR, XR CHEST 2V, 07/24/2022, 11:38. FINDINGS: Surgical changes and devices: None. Lungs and pleura: There is interval near complete resolution of previously noted right lower lobe infiltrate with minimal residual opacities seen. No pleural effusions or pneumothorax. Mediastinum: Aortic arch calcifications are seen. Heart size is enlarged. Bones and chest wall: No suspicious bony abnormalities. Soft tissues appear unremarkable. IMPRESSION: Interval near complete resolution of patient's known right lower lobe infiltrate with minimal residual infiltrates versus atelectasis. No pleural effusion or pneumothorax. Left lung is clear. Dictated by: Rush Cruz M.D. on 08/19/2022 at 12:08 Approved by: Rush Cruz M.D. on 08/19/2022 at 12:09
== END ==
PROVIDERS: Family Provider Family Medicine; PCP Family Medicine; Referring Provider Family Medicine; Visit Provider Family Medicine
DX: J18.9 Pneumonia, unspecified organism (principal)
CPT/HCPCS: 71046

== ENCOUNTER → 2022-10-21 11:45 | Outpatient (CLI) | payer MEDICARE, OTHER, SELFPAY ==
[2021-04-25 15:29] VITALS: BMI 25.7
--- NOTE | 2022-10-21 | DI.CT.S_ITS ---
PROCEDURE: CT CHEST WO CON INDICATIONS: Pneumonia, unspecified organism TECHNIQUE: Noncontrast 5 mm thick sections acquired from the pulmonary apices to the posterior costophrenic angles. 1 mm lung window, 5 mm thick coronal and sagittal and 7 mm axial MIP reformats were then acquired. For radiation dose reduction, the following was used: automated exposure control, adjustment of mA and/or kV according to patient size. COMPARISON: [facility], CT, CT CHEST W CON, 06/12/2021, 12:57. FINDINGS: Image quality: Excellent. Lungs and pleura: Resolution of prior bilateral lower lobe ground-glass opacities with minimal residual ground-glass in the right lower lobe. New opacities in the right middle lobe with some tree in bud nodularity. No pleural effusions or pneumothorax. Central and peripheral airways are patent and normal in caliber. Mediastinum: Left atrium is enlarged. Heart size is otherwise normal. No pericardial effusion. No mediastinal adenopathy by size criteria. Thoracic aorta and central pulmonary arteries are normal in size. Atherosclerotic vascular calcifications. Moderate multivessel coronary artery calcifications. Esophagus is normal in caliber. No hiatal hernia. Bones and chest wall: No suspicious bony lesions. Multilevel degenerative changes of the spine. No vertebral body compression fractures. Fatty lesion within the subcutaneous tissue of the upper back, most consistent with a lipoma. T6 vertebral body hemangioma. No axillary or supraclavicular adenopathy by size criteria. Thyroid gland appears normal. . Abdomen: Left adrenal nodule measuring 1.6 cm, stable appearance compared to prior. Likely left renal cyst, only partially visualized. IMPRESSION: 1. Resolution of prior bilateral lower lobe predominant ground-glass opacities with minimal residual ground-glass in the right lower lobe. 2. New opacities within the right middle lobe with some tree-in-bud nodularity, likely infectious in etiology. Recommend follow-up CT in 3-6 months to document stability or resolution. 3. Stable 5 mm left upper lobe nodule. Can be re-evaluated on follow-up CT of the chest. 4. Atherosclerotic vascular calcifications with moderate multi-vessel coronary artery calcifications. 5. Left adrenal nodule is stable compared to prior measuring 1.6 cm. Indeterminate for adrenal adenoma. Consider outpatient adrenal protocol CT. Dictated by: Leonidas Stephenson M.D. on 10/21/2022 at 17:42 Approved by: Leonidas Stephenson M.D. on 10/21/2022 at 17:54
== END ==
PROVIDERS: Family Provider Family Medicine; PCP Family Medicine; Referring Provider Family Medicine; Visit Provider Family Medicine
DX: J18.9 Pneumonia, unspecified organism (principal); R91.1 Solitary pulmonary nodule; I25.10 Atherosclerotic heart disease of native coronary artery without angina pectoris; E27.9 Disorder of adrenal gland, unspecified
CPT/HCPCS: 71250

== ENCOUNTER → 2022-11-05 11:13 | Outpatient (CLI) | payer MEDICARE, OTHER, SELFPAY ==
[2021-04-25 15:29] VITALS: BMI 25.7
--- NOTE | 2022-11-05 | DI.CT.S_ITS ---
PROCEDURE: CT ABDOMEN ADRENAL PROTOCOL INDICATIONS: ADRENAL MASS TECHNIQUE: Noncontrast 3 mm thick sections acquired from the diaphragms to the iliac crests. After the administration of intravenous contrast, 3 mm thick venous-phase and 15-minute delayed images acquired from the diaphragms to the iliac crests. For radiation dose reduction, the following was used: automated exposure control, adjustment of mA and/or kV according to patient size. COMPARISON: [facility], CT, CT CHEST W [facility], 06/12/2021, 12:57. FINDINGS: Image quality: Good Lower chest: No basal effusions. Chest findings are better seen on recent CT. Follow-up recommendations as per previous report. There is suspected coronary calcifications. Solid organs: The liver is unremarkable. Gallbladder is unremarkable. No pathologic dilation of the biliary tree or pancreatic duct. Small pancreatic cystic lesions, for example cystic lesion in the pancreatic body measuring 6-7 millimeters. No splenomegaly. 1.5 centimeter left adrenal nodule is present, with absolute and relative washout values compatible with adrenal adenoma. Bilateral superimposed mild adrenal thickening. Bosniak 1 and 2 renal lesions are present, for which no dedicated followup is necessary per 2019 proposed guidelines. Nonobstructing right lower pole renal calculus. No hydronephrosis. Vessels and lymph nodes: No abdominal aortic aneurysm. No pathologic lymph nodes by size criteria. Bowel and peritoneum: No bowel obstruction or pathologic ascites. Body wall: Unremarkable. Bones: Degenerative changes. IMPRESSION: 1.5 centimeter left adrenal adenoma. Correlate with laboratory testing to determine functional status. Multiple small pancreatic cystic lesions, consider nonurgent pancreas protocol MRI for follow-up. Please also note previous chest CT report with follow-up recommendations. These may be obtained simultaneously if desired. Dictated by: Herbie Faust M.D. on 11/05/2022 at 13:45 Approved by: Herbie Faust M.D. on 11/05/2022 at 13:52
== END ==
PROVIDERS: Family Provider Family Medicine; PCP Family Medicine; Referring Provider Family Medicine; Visit Provider Family Medicine
DX: D35.02 Benign neoplasm of left adrenal gland (principal); K86.2 Cyst of pancreas
CPT/HCPCS: 74170

== ENCOUNTER → 2022-12-31 10:11 | Outpatient (CLI) | payer MEDICARE, OTHER, SELFPAY ==
[2021-04-25 15:29] VITALS: BMI 25.7
--- NOTE | 2022-12-31 10:12 | DI.MRI.S_ITS ---
PROCEDURE: MR ABDOMEN WO/W CON INDICATIONS: Cyst of pancreas TECHNIQUE: Coronal HASTE, axial 2D FLASH in- and [id number]; axial breath-hold T2 FSE with fat saturation from the hepatic dome to the iliac crests. Oblique coronal thin-slice and radial thick slab HASTE through the biliary system. Dynamic axial VIBE during administration of contrast. Post-contrast coronal VIBE or 2D FLASH with fat saturation from the hepatic dome to the iliac crests. Optional diffusion weighted imaging and ADC may be performed. COMPARISON: [facility], CT, CT ABDOMEN ADRENAL PROTOCOL, 11/05/2022, 11:26. FINDINGS: Image quality: Good Lower chest: Better seen on prior CT. Solid organs: Liver is unremarkable. No pathologic dilation of the biliary system or pancreatic duct. As seen on CT, there are many small pancreatic cystic lesions, the largest in the body (6/13) measures up to 7 millimeters. Some of the cystic lesions may represent dilated side branches. [id number] pancreatic parenchymal atrophy. No splenomegaly. Adrenal nodule again seen. There are renal cysts. No hydronephrosis. Vessels and lymph nodes: No pathologic lymph nodes by size criteria. No abdominal aortic aneurysm. There is atherosclerotic disease. Main portal vein is patent. Bowel and peritoneum: No evidence of small bowel obstruction. No pathologic ascites. Body wall: Unremarkable Bones: Degenerative changes, no acute or suspicious osseous finding. IMPRESSION: Small pancreatic cystic lesions, the largest in the body measuring about 7 millimeters. Imaging follow-up is only at clinical discretion (in 1-2 years), given patient's age. Some atrophy of the the pancreatic parenchyma along with some dilated side branches suggest prior inflammation. Other findings as above. Please also refer to CT findings from October and November. Dictated by: Herbie Faust M.D. on 12/31/2022 at 16:13 Approved by: Herbie Faust M.D. on 12/31/2022 at 16:21
[2022-12-31 10:36] LABS: BUN Creatinine Ratio 30.3 (6-22); Blood Urea Nitrogen 20 mg/dL (7-17); Calcium 10.1 mg/dL (8.4-10.2); Carbon Dioxide 27 mmol/L (22-32); Chloride 104 mmol/L (98-107); Estimated Glomerular Filt Rate > 60 mL/min (>60); Glucose 89 mg/dL (80-110); HEMOLYSIS < 15 (0-50); Potassium 4.3 mmol/L (3.4-5.1); Sodium 139 mmol/L (137-145)
== END ==
PROVIDERS: Family Provider Family Medicine; PCP Family Medicine; Referring Provider Family Medicine; Visit Provider Family Medicine
DX: K86.2 Cyst of pancreas (principal)
CPT/HCPCS: 74183; 80048; A9579

== ENCOUNTER 2023-04-19 13:40 | Emergency (ER) | payer MEDICARE, OTHER, SELFPAY ==
[2021-04-25 15:29] VITALS: BMI 25.7
[2023-04-19 13:46] VITALS: BP 154/67; PULSE 79; RESP 14; TEMP 36.8; O2SAT 99; BMI 25.4
--- NOTE | 2023-04-19 14:03 | ED.URI ---
HPI - URI/Sore Throat <Amanda Denney PA-C - Last Filed: 04/19/23 15:30> General Chief Complaint: Upper Respiratory Symptoms Stated Complaint: fever, congestion Time Seen by Provider: 04/19/23 13:58 Source: patient Mode of arrival: Ambulatory History of Present Illness HPI Narrative: Patient is an 87-year-old female with a history of AFib, on apixaban, who presents with 3 days of cough. She has had a scant runny nose, no sore throat. Fever of 101 per patient report prior to arrival this morning. She did not take any medication for this and is afebrile in triage. She reports a history of pneumonia 3 times over the past 2 years. She is feeling mild pain in her right mid back, which is similar to pain she felt in the past with pneumonia. She denies urinary symptoms, nausea, vomiting, lightheadedness. Patient took a home COVID test yesterday and it was negative. She has not smoked in many years. Related Data Home Medications Medication Instructions Recorded Confirmed lisinopril 40 mg tablet 40 mg PO QDAY 08/12/17 01/30/22 gabapentin 300 mg capsule 300 mg PO DAILY PRN Pain (Scale 04/28/20 01/30/22 Score 1-3) amlodipine 5 mg tablet (Norvasc) 10 mg PO DAILY 04/25/21 01/30/22 Previous Rx's Medication Instructions Recorded apixaban 5 mg tablet (Eliquis) 5 mg PO BID #60 tabs 04/29/21 atorvastatin 20 mg tablet (Lipitor) 10 mg (1/2 x 20 mg) PO DAILY #90 04/29/21 tabs metoprolol tartrate 25 mg tablet 25 mg PO BID #60 tabs 04/29/21 tramadol 50 mg tablet 50 mg PO BID PRN pain #30 tabs 02/04/23 azithromycin 250 mg tablet See Rx Instructions PO .COMPLEX #6 04/19/23 tabs Allergies Allergy/AdvReac Type Severity Reaction Status Date / Time No Known Drug Allergies Allergy Verified 04/19/23 13:49 Review of Systems <Amanda Denney PA-C - Last Filed: 04/19/23 15:30> Review of Systems ROS Unobtainable: All systems reviewed & are unremarkable except as noted in HPI and below Patient History <Amanda Denney PA-C - Last Filed: 04/19/23 15:30> Medical History (Updated 04/19/23 @ 15:10 by Amanda Denney PA-C) Herniated nucleus pulposus with myelopathy, thoracic Cervical spondylosis with radiculopathy Surgical History History of appendectomy History of surgery on wrist Family History Mother Alzheimer disease Father Liver disease Social History household members: spouse Smoking Status: Former smoker Tobacco: How many years used: 20 alcohol intake: former substance use type: does not use Smoking Status: Former smoker alcohol intake frequency: holidays/special occasions only Substance Use Type: does not use Exam <Amanda Denney PA-C - Last Filed: 04/19/23 15:30> Narrative Exam Narrative: GENERAL: 87 year old patient appears stated age. Well-developed patient, in no acute distress. NEURO: AOx3. HEAD: Atraumatic. Normocephalic. EYES: Pupils equal round and reactive. Extraocular motions intact. No scleral icterus. No injection or drainage. ENT: Nose without bleeding or purulent drainage. Airway patent. NECK: Trachea midline. Non tender CARDIOVASCULAR: Regular rate and rhythm without murmurs, gallops, or rubs. Systolic murmur present. RESPIRATORY: Clear to auscultation. Breath sounds equal bilaterally. No wheezes, rales, or rhonchi. SKIN: No rash or erythema of visible areas Initial Vital Signs Initial Vital Signs: Vital Signs Temperature 98.2 F 04/19/23 13:46 Pulse Rate 79 04/19/23 13:46 Respiratory Rate 14 04/19/23 13:46 Blood Pressure 154/67 H 04/19/23 13:46 Pulse Oximetry 99 04/19/23 13:46 Oxygen Delivery Method Room Air 04/19/23 13:46 <Joanie Riddle DO - Last Filed: 04/19/23 19:27> Initial Vital Signs Initial Vital Signs: Vital Signs Temperature 98.2 F 04/19/23 13:46 Pulse Rate 79 04/19/23 13:46 Respiratory Rate 14 04/19/23 13:46 Blood Pressure 154/67 H 04/19/23 13:46 Pulse Oximetry 99 04/19/23 13:46 Oxygen Delivery Method Room Air 04/19/23 13:46 Course <Amanda Denney PA-C - Last Filed: 04/19/23 15:30> Orders Ordered: ED Orders 04/19/23 14:02 XR chest 2V Stat 04/19/23 14:06 Covid-19 + FLU A/B + RSV - PCR Stat Vital Signs Vital signs: Vital Signs - 8 hr 04/19/23 13:46 04/19/23 14:51 Temperature 98.2 F 100.9 F H Pulse Rate 79 76 Respiratory Rate 14 22 Blood Pressure 154/67 H 136/74 Pulse Oximetry 99 98 Oxygen Delivery Method Room Air Room Air <Joanie Riddle DO - Last Filed: 04/19/23 19:27> Orders Ordered: ED Orders 04/19/23 14:02 XR chest 2V Stat 04/19/23 14:06 Covid-19 + FLU A/B + RSV - PCR Stat Vital Signs Vital signs: Vital Signs - 8 hr 04/19/23 13:46 04/19/23 14:51 Temperature 98.2 F 100.9 F H Pulse Rate 79 76 Respiratory Rate 14 22 Blood Pressure 154/67 H 136/74 Pulse Oximetry 99 98 Oxygen Delivery Method Room Air Room Air MDM - URI/Sore Throat <Amanda Denney PA-C - Last Filed: 04/19/23 15:30> Lab Data Labs: Lab Results 04/19/23 Range/Units 14:06 SARS-CoV-2 (PCR) Negative (Negative) Influenza A (RT-PCR) Flu a negative (NEGATIVE) Influenza B (RT-PCR) Flu b negative (NEGATIVE) RSV (PCR) Negative (Negative) Imaging Data Chest x-ray: Radiologist's Impression: PROCEDURE: XR CHEST 2V INDICATIONS: coughing, r/o pneumonia TECHNIQUE: 2 views of the chest were acquired. COMPARISON: [facility], , XR CHEST 2V, 08/19/2022, 10:25. FINDINGS: Surgical changes and devices: None. Lungs and pleura: Lungs are clear. No pleural effusions or pneumothorax. Mediastinum: Mediastinal contours are normal. Heart size is normal. Bones and chest wall: No suspicious bony abnormalities. Soft tissues appear unremarkable. IMPRESSION: No acute cardiopulmonary abnormality is seen. Dictated by: Gutierrez Tang M.D. on 04/19/2023 at 13:22 Approved by: Gutierrez Tang M.D. on 04/19/2023 at 13:23 [facility] Narrative Medical decision making narrative: Multiple etiologies for patient's symptoms considered including, but not limited to: Viral upper respiratory infection, pneumonia, COVID, influenza. Vital signs and physical exam are reassuring but given patient's age, we will obtain viral PCR test for COVID and flu and a chest x-ray. Xray read as negative but there is haziness vs early infiltrate in RLL. Covid/flu/RSV negative. Patient initially afebrile in ED but had a fever on recheck. Shared-decision making conversation with the patient; in the absence of COVID, flu, RSV, she still could very likely have a viral respiratory illness but given that x-ray often lags behind clinical presentation of pneumonia and her history and her age, she may be developing pneumonia. There are risks to taking antibiotics. We agreed that I will prescribe antibiotics, patient will wait and see how she is doing over the next 12-24 hours. If she has not feeling better or is getting worse, she will start the antibiotics. She understands that if she develops any shortness of breath, chest pain, high fever not responsive to Tylenol, confusion, lightheadedness or other symptoms, she should return to the emergency department for reassessment. If she feels like she is getting better tomorrow, it is okay to not take the antibiotics and follow up with Dr. Anders for reassessment later in the week. Patient is agreeable to this plan. Patient's symptoms improved over duration of stay with above-stated therapies. Findings and discharge diagnosis discussed with patient/family followed by verbalization of understanding Return precautions discussed with patient/family whom verbalize understanding of diagnosis and plan <Joanie Riddle, DO - Last Filed: 04/19/23 19:27> Lab Data Labs: Lab Results 04/19/23 Range/Units 14:06 SARS-CoV-2 (PCR) Negative (Negative) Influenza A (RT-PCR) Flu a negative (NEGATIVE) Influenza B (RT-PCR) Flu b negative (NEGATIVE) RSV (PCR) Negative (Negative) Discharge Plan Departure Patient Disposition: Home Clinical Impression: Upper respiratory infection Qualifiers: URI type: unspecified viral URI Qualified Code(s): J06.9 - Acute upper respiratory infection, unspecified Instructions: DI for Viral Upper Respiratory Infection -- Adult Activity Restrictions/Additional Instructions: *You have been diagnosed with a viral respiratory infection. As we discussed, I do not see clear evidence of pneumonia on your chest x-ray, your lung sounds are clear when I listen and your vital signs are normal, except for fever, in the emergency room. This does not mean that you do not have early pneumonia, especially because your viral testing for COVID, flu and RSV was negative and you continue to have a fever while in the emergency room. Per our shared decision making,I will prescribe antibiotics and you can wait and see how you do tonight and tomorrow morning before you start to take them. If you continue to have fevers, or are feeling more tired or develop new symptoms like night sweats or shortness of breath, I would definitely start taking the antibiotics. If you develop shortness of breath, chest pain or other symptoms that are severe, you should return to the emergency department. Either way, I would follow up with your primary care Dr. Anders later this week. Continue to rest, drink lots of water, take Tylenol for fever or body aches. *What to do: *Please continue to take your regular medications as directed. [x] New medication prescriptions sent to your pharmacy: [[facility]] [ ] New medication written as a paper prescription [] No new medications given *Please follow up with your primary care provider in 2-3 days, call for an appointment. Let them know you were seen in the Emergency Department and that we ask that you be seen in follow up. We will electronically transmit a record of today's note if your PCP is in our system *If you do not have a primary care provider please contact the [facility] Resource line at [phone]. They will ask some questions about your medical history and help get you set up with a doctor in the community. *Return to Emergency Department if you should have any new, worsening or concerning symptoms, such as [fever greater than 101 F, shaking chills, worsening pain, persistent vomiting or other concerning symptoms]. Prescriptions: New azithromycin 250 mg tablet See Rx Instructions .ROUTE .COMPLEX Qty: 6 0RF Rx Instructions: For 250 mg dose pack: take 500 mg today (day 1), then 250 mg for 4 days (days 2-5) No Action tramadol 50 mg tablet 50 mg PO BID MDD 100mg PRN (Reason: pain) Qty: 30 0RF lisinopril 40 mg tablet 40 mg PO QDAY amlodipine [Norvasc] 5 mg tablet 10 mg PO DAILY Eliquis 5 mg Tablet 5 mg PO BID Qty: 60 6RF atorvastatin [Lipitor] 20 mg Tablet 10 mg PO DAILY Qty: 90 1RF metoprolol tartrate 25 mg Tablet 25 mg PO BID Qty: 60 3RF gabapentin 300 mg capsule 300 mg PO DAILY PRN (Reason: Pain (Scale Score 1-3)) Referrals: Dima Anders MD [Primary Care Provider] - Stand Alone Forms: Patient Portal/API ED Sign-out <Joanie Riddle DO - Last Filed: 04/19/23 19:27> Cosign ED Attending Coslorenzaature Attestation: I was immediately available in the department for consultation.
--- NOTE | 2023-04-19 14:50 | PC.NURSE ---
Notified provider of temperature change prior to discharge.
[2023-04-19 14:51] VITALS: BP 136/74; PULSE 76; RESP 22; TEMP 38.3; O2SAT 98
[2023-04-19 14:53] LABS: Influenza A - CEPHEID Flu A NEGATIVE (NEGATIVE); Influenza B - CEPHEID Flu B NEGATIVE (NEGATIVE); Respiratory Syncytial Virus Negative (Negative)
[2023-04-19 15:02] LABS: COVID-19 CEPHEID 4-PLEX PCR Negative (Negative)
== END 2023-04-19 15:17 | disposition home or self-care (01) ==
PROVIDERS: Emergency Provider Physician Assistant; Family Provider Family Medicine; PCP Family Medicine
DX: J06.9 Acute upper respiratory infection, unspecified (principal); R50.9 Fever, unspecified; Z79.01 Long term (current) use of anticoagulants; Z79.899 Other long term (current) drug therapy; Z20.822 Contact with and (suspected) exposure to COVID-19
CPT/HCPCS: 0241U; 71046; 99283

== ENCOUNTER → 2023-05-06 11:31 | Outpatient (CLI) | payer MEDICARE, OTHER, SELFPAY ==
[2021-04-25 15:29] VITALS: BMI 25.7
--- NOTE | 2023-05-06 11:33 | DI.CT.S_ITS ---
PROCEDURE: CT CHEST WO CON INDICATIONS: Solitary pulmonary nodule TECHNIQUE: Noncontrast 5 mm thick sections acquired from the pulmonary apices to the posterior costophrenic angles. 1 mm lung window, 5 mm thick coronal and sagittal and 7 mm axial MIP reformats were then acquired. For radiation dose reduction, the following was used: automated exposure control, adjustment of mA and/or kV according to patient size. COMPARISON: [facility], CT, CT CHEST WO CON, 10/21/2022, 14:19. FINDINGS: Image quality: Diagnostic. Lower Neck: No enlarged lymph nodes. Thyroid: No thyroid nodules which require sonographic follow up, per consensus guidelines. Axillae: No enlarged lymph nodes. Chest Wall: Unremarkable. Bones: Unremarkable. Lungs and Pleura: No pneumothorax or pleural effusions. Pulmonary nodules are as follows (all described on series 3): 1. Left apex, current image 53, 5 mm, stable. Reference previous image 55/3. 2. New left upper lobe, 4 mm, image 121 period . Heart: Left atrial enlargement. No pericardial effusion. Thoracic Vessels: Borderline aneurysmal dilatation of the ascending aorta, measuring 4.1 cm. Pulmonary arteries are of normal caliber. 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 Mediastinum and Faustina: No enlarged lymph nodes. Esophagus: No wall thickening. No hiatal hernia. Upper Abdomen: Visualized upper abdomen solid organs and bowel loops appear normal. IMPRESSION: 1. Stable tiny pulmonary nodules, of very low likelihood of malignancy. 2. 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 Mild aneurysmal dilatation of the ascending aorta. Dictated by: Fredrick Albrecht M.D. on 05/06/2023 at 14:33 Approved by: Fredrick Albrecht M.D. on 05/06/2023 at 15:15
== END ==
LOC: CT 11:32
PROVIDERS: Family Provider Family Medicine; PCP Family Medicine; Referring Provider Family Medicine; Visit Provider Family Medicine
DX: R91.1 Solitary pulmonary nodule (principal); I77.810 Thoracic aortic ectasia
CPT/HCPCS: 71250

== ENCOUNTER → 2023-05-09 11:24 | Outpatient (CLI) | payer MEDICARE, OTHER, SELFPAY ==
[2021-04-25 15:29] VITALS: BMI 25.7
--- NOTE | 2023-05-09 11:27 | DI.CT.S_ITS ---
PROCEDURE: CT ABDOMEN PANCREATIC PROTOCOL INDICATIONS: Cyst of pancreas TECHNIQUE: Both before and after the administration of intravenous contrast, 3 mm thick pancreatic-phase images acquired from the diaphragm to the iliac crests. 3 mm thick coronal and sagittal reformats were performed. For radiation dose reduction, the following was used: automated exposure control, adjustment of mA and/or kV according to patient size. COMPARISON: [facility], MR, MR ABDOMEN WO/W CON, 12/31/2022, 12:28. FINDINGS: Image quality: Diagnostic Lower chest: Right Bochdalek's fat containing hernia. Scattered scarring and atelectasis. Borderline cardiomegaly is partially seen. Possible small hiatal hernia. Liver: Unremarkable Gallbladder and biliary system: Gallbladder is mildly distended. No pathologic biliary ductal dilation Pancreas: Overall similar anterior pancreatic body cystic lesion measuring 7 mm. Tiny dilated side branches with mildly atrophic pancreatic parenchyma likely from prior inflammation. These are similar to prior MRI. Spleen: Nonenlarged Adrenals: Thickened adrenals as before Kidneys: There are renal cysts. No solid renal mass. Tiny nonobstructing right renal calculus. Vessels and lymph nodes: Atherosclerotic calcifications. The main portal vein is patent. No pathologic lymph nodes by size criteria. Bowel and peritoneum: No evidence of small bowel obstruction. There are colonic diverticula. Body wall: Unremarkable Pelvis: Not imaged on this study Bones: Degenerative changes. IMPRESSION: Unchanged subcentimeter anterior pancreatic body cystic lesion measuring 7 mm. Mildly atrophic pancreatic parenchyma with small dilated side branches likely from prior inflammation. These are of doubtful clinical significance in this age group. If follow-up is desired, MRI would be preferred. No new/acute findings in the abdomen. Other findings as above. Dictated by: Herbie Faust M.D. on 05/09/2023 at 14:46 Approved by: Herbie Faust M.D. on 05/09/2023 at 14:52
[2023-05-09 12:15] LABS: BUN Creatinine Ratio 22.1 (6-22); Blood Urea Nitrogen 15 mg/dL (7-17); Calcium 10.1 mg/dL (8.4-10.2); Carbon Dioxide 26 mmol/L (22-32); Chloride 103 mmol/L (98-107); Estimated Glomerular Filt Rate > 60 mL/min (>60); Glucose 93 mg/dL (80-110); HEMOLYSIS < 15 (0-50); Potassium 4.2 mmol/L (3.4-5.1); Sodium 137 mmol/L (137-145)
== END ==
PROVIDERS: Family Provider Family Medicine; PCP Family Medicine; Referring Provider Family Medicine; Visit Provider Family Medicine
DX: K86.2 Cyst of pancreas (principal); E27.8 Other specified disorders of adrenal gland; I25.10 Atherosclerotic heart disease of native coronary artery without angina pectoris; K57.90 Diverticulosis of intestine, part unspecified, without perforation or abscess without bleeding; N28.1 Cyst of kidney, acquired
CPT/HCPCS: 36415; 74170; 80048; Q9967

== ENCOUNTER 2023-05-13 09:32 | Emergency (ER) | payer MEDICARE, OTHER, SELFPAY ==
[2021-04-25 15:29] VITALS: BMI 25.7
[2023-05-13 09:33] VITALS: BP 179/79; PULSE 68; RESP 14; TEMP 36.4; O2SAT 98; BMI 25.2
--- NOTE | 2023-05-13 09:49 | PC.NURSE ---
Pt came to ED today because she was having pain in her lower right occipital area of her head. Pt had ABD ct done on 05/08 and outpt lab work on 05/09 and has been experiencing pain and general malaise ever since. Pt would like to be seen by a doctor because she does not know if her sx are related to her scan and labwork done the other day. Took previously prescribed gabapentin this morning at 0200. Pt a&ox4. Denies vision changes or loss. Denies n/v, cp, sob. Denies any numbness and tingling of extremities or any changes in sensation. No slurring of speech noted and pt ambulated with steady gait to room in ED.
--- NOTE | 2023-05-13 10:00 | ED.HA ---
HPI - Headache General Chief Complaint: Headache Stated Complaint: pain Rside of head T-5 Time Seen by Provider: 05/13/23 09:59 Source: patient, RN notes reviewed and old records reviewed Mode of arrival: Ambulatory Limitations: no limitations History of Present Illness HPI Narrative: 87-year-old female with history of hypertension, dyslipidemia, atrial fibrillation anticoagulant Eliquis. Patient presents with complaint of pain/headache on the right posterior scalp/head that has been present for the past 5 days. Patient states no trauma or injuries. Has been present gradual sort of a travels from the edge of the hairline up towards the mid posterior scalp. She states it feels a little bit deeper than the skin but she does have tenderness and pain with palpation. States she has not noticed any rash but does feel sort of a change to the texture of the skin. Patient states no fevers or chills. She has not had similar symptoms in the past. She describes headache as mild. She states no upper respiratory congestion or plugged ears. No neck pain. No chest pain or shortness of breath. No nausea or vomiting, no GI or urinary symptoms. She has not had any other neurologic symptoms. Patient states she did take a leftover gabapentin which was helpful. She thought she was improving last night but then was worse this morning. Has not been spreading or changing location. Patient is on atorvastatin, lisinopril, metoprolol, amlodipine and Eliquis as her daily medications. Has had prior tonsillectomy, appendectomy, wrist repair. No known drug allergies. Former smoker, occasional alcohol, no recreational drugs. States she did have a shingles shot. Dr. Anders is her PCP. Related Data Home Medications Medication Instructions Recorded Confirmed lisinopril 40 mg tablet 40 mg PO QDAY 08/12/17 01/30/22 gabapentin 300 mg capsule 300 mg PO DAILY PRN Pain (Scale 04/28/20 01/30/22 Score 1-3) amlodipine 5 mg tablet (Norvasc) 10 mg PO DAILY 04/25/21 01/30/22 Previous Rx's Medication Instructions Recorded apixaban 5 mg tablet (Eliquis) 5 mg PO BID #60 tabs 04/29/21 atorvastatin 20 mg tablet (Lipitor) 10 mg (1/2 x 20 mg) PO DAILY #90 04/29/21 tabs metoprolol tartrate 25 mg tablet 25 mg PO BID #60 tabs 04/29/21 tramadol 50 mg tablet 50 mg PO BID PRN pain #30 tabs 02/04/23 azithromycin 250 mg tablet See Rx Instructions PO .COMPLEX #6 04/19/23 tabs doxycycline hyclate 100 mg tablet 100 mg PO BID #14 tabs 05/13/23 gabapentin 300 mg capsule 300 mg PO TID #30 caps 05/13/23 Allergies Allergy/AdvReac Type Severity Reaction Status Date / Time No Known Drug Allergies Allergy Verified 05/13/23 09:41 Review of Systems Review of Systems ROS Unobtainable: All systems reviewed & are unremarkable except as noted in HPI and below Patient History Medical History (Updated 05/13/23 @ 10:43 by Joanie Riddle DO) Herniated nucleus pulposus with myelopathy, thoracic Cervical spondylosis with radiculopathy Surgical History History of appendectomy History of surgery on wrist Family History Mother Alzheimer disease Father Liver disease Social History household members: spouse Smoking Status: Former smoker Tobacco: How many years used: 20 alcohol intake: former substance use type: does not use Smoking Status: Former smoker alcohol intake frequency: holidays/special occasions only Substance Use Type: does not use Exam Narrative Exam Narrative: GEN: well nourished, well appearing female, alert and oriented x 3, patient appears to be in mild distress. HEENT: Atraumatic on examination on the right posterior scalp within there is flat erythematous patches. No blisters not raised there is no wheals. She is slightly tender over that area and extends about 2-3 cm in length it does cross the midline. Patient's does not have any rash or skin changes noted ulcer. There is no palpable abscess or fluid collection it has not indurated., pupils are equal round reactive to light, extraocular movements are intact, nares are clear, TMs are clear with no fluid, there is no conjunctival pallor. Throat is clear without any exudates, erythema, tonsillar enlargement or uvular deviation, normal range of motion of the neck. HEART: Regular rate and rhythm without murmur, clicks, rubs. LUNGS:Lungs clear to auscultation, no wheezes, rales, crackles, chest moves symmetrically ABD:bowel sounds normal, soft, non-tender, no guarding, rebound, rigidity, no masses noted, no hepatosplenomegaly :No CVA tenderness MSCL: Non-tender, no muscle atrophy, muscles strength 5/5 upper and lower extremities, full range of motion, normal gait NEURO:CN 2-12 intact, sensation normal SKIN: see above. Initial Vital Signs Initial Vital Signs: Vital Signs Temperature 97.6 F 05/13/23 09:33 Pulse Rate 68 05/13/23 09:33 Respiratory Rate 14 05/13/23 09:33 Blood Pressure 179/79 H 05/13/23 09:33 Pulse Oximetry 98 05/13/23 09:33 Oxygen Delivery Method Room Air 05/13/23 09:33 Course Orders Ordered: ED Orders 05/13/23 09:59 CT head/brain wo con Stat Vital Signs Vital signs: Vital Signs - 8 hr 05/13/23 09:33 Temperature 97.6 F Pulse Rate 68 Respiratory Rate 14 Blood Pressure 179/79 H Pulse Oximetry 98 Oxygen Delivery Method Room Air MDM - Headache Imaging Data CT scan - head: Radiologist's Impression: [place] [address] CT Scan Report Signed Patient: Deana Bernal MR#: [id number] : 1935 Acct:[id number] Age/Sex: 87 / F Date of Service: 05/13/23 Loc: ED Accession Number: [id number] Procedure: CT head/brain wo con Ordering Provider: Joanie Riddle D.O. PROCEDURE: CT HEAD/BRAIN WO CON INDICATIONS: pain L posterior headache, on eliquis, no trauma TECHNIQUE: Noncontrast 4.5 mm thick angled axial sections acquired from the foramen magnum to the vertex, with coronal and sagittal reformats. For radiation dose reduction, the following was used: automated exposure control, adjustment of mA and/or kV according to patient size. COMPARISON: [facility], CT, CT HEAD/BRAIN WO CON, 11/06/2020, 9:42. FINDINGS: Image quality: Diagnostic. CSF spaces: Basal cisterns are patent. No extra-axial fluid collections. The ventricles are symmetric in size and shape. Brain: No intracranial bleeds or masses. There is cerebral volume loss for age, with resultant ventricular and sulcal prominence. There are periventricular and deep white matter chronic small vessel ischemic changes. There is intracranial internal carotid artery atherosclerosis. Skull and face: Calvarium and visualized facial bones appear intact, without suspicious lesions. Sinuses: Visualized sinuses and mastoids are clear. IMPRESSION: No acute intracranial hemorrhage is seen. No acute intracranial process is seen. Dictated by: Avery Parks M.D. on 05/13/2023 at 9:13 Approved by: Avery Parks M.D. on 05/13/2023 at 9:15 [facility] Narrative Medical decision making narrative: 87-year-old female with 5 days of headache, no acute neurologic changes she is on anticoagulants she has been atraumatic does not recall any injuries. Patient's exam is overall normal except for some patchy erythematous changes in the hair in the area of pain. No induration no palpable abscess. Do not see any obvious blisters and it does cross the midline making shingles seem less likely. Suspect more of a cellulitis then shingles. She did try gabapentin was helpful for pain. She notes that the pain seems to be little bit deeper that her skin so head CT was obtained as she is anticoagulated although no reported traumatic history well as rule out any soft tissue abscess. Patient's head CT is negative. Plan for oral antibiotics seems much more cellulitis than shingles. Patient did have some improvement with gabapentin so we will give a short prescription as hers was old leftover. Discharge Plan Departure Patient Disposition: Home Clinical Impression: Cellulitis of head or scalp Activity Restrictions/Additional Instructions: Your imaging today was overall reassuring. You do have a rash or skin changes over the scalp, there is no blisters to the area and it does cross the midline making shingles much less likely source of your symptoms. I would take oral antibiotic until completed. You can take gabapentin 1 tablet every 8 hours as needed for symptoms. Prescription sent to [facility]. Please return for new or worsening symptoms increasing pain, increasing redness swelling or spreading of symptoms, fevers greater than 100.4, new numbness, tingling or weakness difficulty with speech or movement, persistent vomiting or other new or concerning changes. Prescriptions: New doxycycline hyclate 100 mg tablet 100 mg PO BID Qty: 14 0RF gabapentin 300 mg capsule 300 mg PO TID Qty: 30 0RF No Action tramadol 50 mg tablet 50 mg PO BID MDD 100mg PRN (Reason: pain) Qty: 30 0RF azithromycin 250 mg tablet See Rx Instructions .ROUTE .COMPLEX Qty: 6 0RF Rx Instructions: For 250 mg dose pack: take 500 mg today (day 1), then 250 mg for 4 days (days 2-5) lisinopril 40 mg tablet 40 mg PO QDAY amlodipine [Norvasc] 5 mg tablet 10 mg PO DAILY Eliquis 5 mg Tablet 5 mg PO BID Qty: 60 6RF atorvastatin [Lipitor] 20 mg Tablet 10 mg PO DAILY Qty: 90 1RF metoprolol tartrate 25 mg Tablet 25 mg PO BID Qty: 60 3RF gabapentin 300 mg capsule 300 mg PO DAILY PRN (Reason: Pain (Scale Score 1-3)) Referrals: Dima Anders MD [Primary Care Provider] - Stand Alone Forms: Patient Portal/API
== END 2023-05-13 11:37 | disposition home or self-care (01) ==
PROVIDERS: Emergency Provider Emergency Medicine; Family Provider Family Medicine; PCP Family Medicine
DX: L03.811 Cellulitis of head [any part, except face] (principal); Z79.01 Long term (current) use of anticoagulants
CPT/HCPCS: 70450; 99281; 99284

== ENCOUNTER → 2024-01-06 10:36 | Outpatient (CLI) | payer MEDICARE, OTHER, SELFPAY ==
[2021-04-25 15:29] VITALS: BMI 25.7
--- NOTE | 2024-01-06 10:39 | DI.RAD.S_ITS ---
PROCEDURE: XR CHEST 2V INDICATIONS: COUGH TECHNIQUE: 2 views of the chest were acquired. COMPARISON: [facility], CR, XR CHEST 2V, 04/19/2023, 14:17. FINDINGS: Surgical changes and devices: None. Lungs and pleura: Lungs are clear. No pleural effusions or pneumothorax. Mediastinum: Mediastinal contours are normal. Heart size is mildly enlarged. Bones and chest wall: No suspicious bony abnormalities. Soft tissues appear unremarkable. IMPRESSION: No acute pulmonary process. Dictated by: Carmina Mcmillan M.D. on 01/06/2024 at 14:21 Approved by: Carmina Mcmillan M.D. on 01/06/2024 at 14:22
== END ==
PROVIDERS: Family Provider Family Medicine; PCP Family Medicine; Referring Provider Family Medicine; Visit Provider Family Medicine
DX: R05.1 Acute cough (principal)
CPT/HCPCS: 71046